=== PATIENT | male | born 1935 | race Caucasian/White ===

== ENCOUNTER 2018-01-07 10:13 | Inpatient (IN) | payer MEDICARE ==
[2018-01-07] MEDS ORDERED: ALBUTEROL SULFATE (0.083%) 2.5 MG/3 ML NEB INH PRN (16:49)
--- NOTE | 2018-01-07 17:10 | Rehab Evaluation ---
Patient Information - Patient Information Diagnosis: Deconditioning due to respiratory failure Ordered Treatment: PT Evaluate and Treat Status: Initial Evaluation History: Detail (The patient was transferred from [facility] Past Medical/Surgical Hx: PAST MEDICAL/SURGICAL HISTORY Past Surgical History Stents X2 RLL removed From [place] Apendix 2009 Untwist bowel EGD funduplication PMH - Respiratory Hx Respiratory Disorders Yes Hx Chronic Obstructive Yes Pulmonary Disease (COPD) Comment: RLlobe removed from [place] PMH - Cardiovascular Hx Cardiovascular Disorders Yes Hx Abnormal EKG Yes Hx Cardiac Catheterization Yes: recent cath [facility] 01/17/2015 Hx Edema Yes Hx Heart Attack Yes Hx Hypertension Yes Hx Irregular Heartbeat Yes Comment: [place] with 3 stents PMH - Neuro Hx Neurological Disorders Yes Hx Dizziness Yes PMH - GI Hx Gastrointestinal Disorders Yes Hx Gastroesophageal Reflux Yes Hx Obstructive Bowel Yes PMH - Hx Genitourinary Disorders No PMH - Endocrine Hx Endocrine Disorders No PMH - Musculoskeletal Hx Musculoskeletal Disorders Yes Hx Arthritis Yes PMH - Psych Hx Psychiatric Problems No PMH - Hematology/Oncology Hx Hematology/Oncology Yes Disorders Hx Cancer Yes: Lung Hx Chemotherapy No Hx Radiation Therapy No Premorbid Status: Detail (Prior to recent hospital admission per patient's family, patient was ambulatory without device in home and with 4 wheeled walker out in the community.) Social History: Detail (Patient lives with spouse in one story home with one step at the enterance into the kitchen with a grab bar on the right side when ascending stairs. The patient's bathroom is equipped with a [id number] with a small step/lip to step in and a shower seat and a high rise toilet. 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 The patient has a walker with 4 wheels and home O2.) Precautions: [place], Fall - Time With Patient Total Time Spent With Patient (Min): 30 Treatment Procedures: Detail (Initial Evaluation.) Subjective Information - Subjective Information Per Patient (The patient denied pain and had no complaints. The patient's breathing was labored at rest. The patient was [place] and required hand motions to follow directions at times. The patient stated he was not too good at lip reading.) Objective Data - Mental Status Patient Orientation: Oriented x3 - Visual Perception Appears within normal limits for therapeutic activities - ROM Within normal limits (LE AROM was WNL.) - Strength/Tone Not within normal limits (LE strength was generally 5/5 except for L hip flexors 4/5, B hamstrings 4+/5.) - Bed Mobility Needs Assist (Not assessed. The patient was sitting on the edge of the bed.) - Transfers Independent (Independent sit to and from stand transfer.) - Balance Balance Sitting: Good Balance Standing: Fair (The patient was able to stand without support. The patient's balance was not formally tested using an objective balance test.) - Gait Detail (The patient ambulated with 4 wheeled walker with supervision for safety and 6 L of O2 a distance of 22 feet x 1. The patient's O2 sat was not tested, the patient had minimal increase in shortness of breath.) Therapy Assessment - Therapy Assessment Detail (The patient has minimal LE weakness and decreased ability to complete prolonged physical activity. Feel the patient is a good Rehab candidate to return to previous functional level.) Problem List - Problem List Physical Therapy Problem List: Detail (1) Minimal weakness in bilateral LE's 2) Decreased ability to ambulate distances 3) Decreased ability to complete sustained physical activity as required for ADL's 4) Non ambulatory on stairs) Goals - Goals Physical Therapy Goals: 1) Assess patient's bed mobility. 2) Assess patient's balance using standardized balance test. 3) The patient will ambulate with appropriate assistive device distances of 150 feet plus mantaining appropriate O2 sat. level. 4)The patient will ambulate on stairs with supervision. 5) The patient will be independent with bed mobility. 6) The patient will tolerate 30 minutes of activity with one to 2 rest periods and maintaining safe O2 sat. level Prognosis - Prognosis Good (Good to return to home.) Plan - Plan Physical Therapy Plan: PT 1-2 times a day M-F for gait training, LE strengthening and muscular endurance exercises, bed mobility, breathing exercises including pursed lip breathing.
[2018-01-07] MEDS: CIPROFLOXACIN HCL 500 MG TABLET PO SCH (18:05)
[2018-01-07] MEDS: FERROUS SULFATE 325 MG TAB PO SCH (18:06)
[2018-01-07] MEDS: CALCIUM CARB/VITAMIN D 500MG/200IU PO SCH (18:06)
[2018-01-07] MEDS: GABAPENTIN 300 MG CAPSULE PO SCH (20:37)
[2018-01-07] MEDS: MIDODRINE 2.5 MG PO SCH (20:37)
[2018-01-07] MEDS: TAMSULOSIN HCL 0.4 MG CAP.ER.24H PO SCH (20:37)
[2018-01-07] MEDS: SOTALOL HCL 80 MG TABLET PO SCH (20:37)
[2018-01-07] MEDS: TOPIRAMATE 25MG TABLET PO SCH (20:37)
[2018-01-07] MEDS: CARBIDOPA/LEVODOPA 25MG/100MG TABLET PO SCH (20:37)
[2018-01-07] MEDS: PANTOPRAZOLE SODIUM 40 MG TABLET PO SCH (20:37)
[2018-01-08] MEDS: BREO (FLUTICASONE/VILANTEROL) 200MCG/25MCG INHALER INH SCH (05:45)
[2018-01-08] MEDS: UMECLIDINIUM BROMIDE (INCRUSE) 62.5MCG IH SCH (05:47)
[2018-01-08] MEDS: FLUTICASONE PROPIONATE 50MCG NASAL 16 GM BTL SCH (06:34)
[2018-01-08] MEDS: MIDODRINE 2.5 MG PO SCH ×3 (06:34→20:04)
[2018-01-08] MEDS: CIPROFLOXACIN HCL 500 MG TABLET PO SCH (06:35)
[2018-01-08] MEDS: SOTALOL HCL 80 MG TABLET PO SCH ×2 (06:35→20:13)
[2018-01-08] MEDS: ASPIRIN 81 MG TABEC PO SCH (06:35)
[2018-01-08] MEDS: ATORVASTATIN 20 MG TABLET PO SCH (06:35)
[2018-01-08] MEDS: CLOPIDOGREL 75MG TABLET PO SCH (06:36)
[2018-01-08] MEDS: TOPIRAMATE 25MG TABLET PO SCH ×3 (06:36→20:13)
[2018-01-08] MEDS: GABAPENTIN 300 MG CAPSULE PO SCH ×3 (06:36→20:12)
[2018-01-08] MEDS: CARBIDOPA/LEVODOPA 25MG/100MG TABLET PO SCH ×3 (06:36→20:13)
[2018-01-08] MEDS: LISINOPRIL 5 MG TABLET PO SCH (06:38)
[2018-01-08] MEDS: PANTOPRAZOLE SODIUM 40 MG TABLET PO SCH ×2 (06:38→20:13)
[2018-01-08] MEDS ORDERED: PREDNISONE 5 MG TAB PO SCH (08:00)
[2018-01-08] MEDS: CALCIUM CARB/VITAMIN D 500MG/200IU PO SCH ×2 (08:17→17:19)
[2018-01-08] MEDS: FERROUS SULFATE 325 MG TAB PO SCH ×3 (08:17→17:19)
[2018-01-08] MEDS: MULTIVITAMINS/MINERALS TABLET PO SCH (08:18)
--- NOTE | 2018-01-08 10:24 | Swing Bed Certification/Recert ---
Initial Certification Due: 01/07/18 14 Day Re-Cert Due: 01/21/18 44 Day Re-Cert Due: 02/20/18 74 Day Re-Cert Due: 03/22/18 CERTIFICATION 3 CERTIFICATION OF PATIENT ADMISSION Required at time of admission. Due: 01/07/18 I certify that SNF services are required to be given on an inpatient basis because of the above named patient's need for assisted care on a continuing basis for the condition(s) for which he/she was receiving inpatient hospital services prior to his/her transfer to the SNF. The patient's current needs for skilled care includes: [deconditioning due to COPD/lung cancer] Vivi Silva 01/08/18
--- NOTE | 2018-01-08 10:31 | History & Physical ---
History of Present Illness - Date Date of Service for History & Physical: 01/08/18 - History of Present Illness Admitting Diagnosis: Deconditioning d/t COPD and PNA History of Present Illness: 82yo male admitted to [facility] for deconditioning related to recent hospitalization at [facility] for acute on chronic respiratory failure from COPD and pneumonia. He has history of non-small cell lung cancer s/p right lower lobectomy, CAD s/p PCI, p. afib, SVT s/p ablation, GIB with watchman device placed in 2016, HTN, GERD, parkinson's disease, chronic anemia and hearing loss. Patient was admitted to [facility] on 01/01/18 with respiratory failure related to penumonia. he was treated for pseudomonas in sputum with meropenam and steroids. He did well and was transitioned to oral cipro and steroid taper with prednisone. He continued to be weak and was belong baseline with his breathing especially with activity. PT/OT at [facility] evaluated him and recommended continued therapy with JUAREZ. 01/08/18- Patient states he is doing well today. He says overall his breathing has improved and he does not feel short of breath at rest with 4L O2 via NC. He still gets winded easily with activity. He is not having any cough, sputum production, fever, chills. says he seems to be breathing much better since his hospitalization. He is having some loose stool since starting abx therapy, but denies abdominal pain/cramping. pcp: Dr. 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 Required: No Level of Education: Grade 9-11 Preferred Method of Learning: Seeing, Doing, Reading Comprehension Ability: No Impairment Able to Read: Yes Able to Write: Yes Select best description of speech pattern: Clear Speech Ability to express ideas and wants: Understood Understanding verbal content: Understands - Psychosocial Well-Being Usual Living Arrangement: Spouse - Physical Functioning Activity Level: Up with assist x1 Turning: Self ad marcell ROM Ability: Limited/Compromised Assistive Devices: 2 Wheel Walker Ambulation Ability: Needs Assist Bed Mobility: Independent Transfer Ability: Independent Bathing Ability: Needs Assist Personal Hygiene: Independent Dressing Ability: Independent Eating (Feeding) Ability: Independent Toileting Ability: Independent Administer Own Medication: Dependent - Continence Bowel Pattern: Diarrhea Bladder Pattern: Frequency, Urgency Urinary Incontinence: Functional - Dental Status Unable to examine: No Broken or loosely fitting full or partial dentures: Not Assessed/No Information No natural teeth or tooth fragment(s) (edentulous): No Abnormal mouth tissue (ulcers, masses, oral lesions, etc.): No Obvious or likely cavity or broken natural teeth: No Inflamed or bleeding gums or loose natural teeth: No Mouth/facial pain, discomfort or difficulty chewing: No - Nutrition Screening Poor oral intake > 1 week: No Unplanned weight loss in specified time frame: Yes Nutrition Support via tube feedings or parenteral nutrition: No Pressure Ulcer: No Significantly underweight define as BMI <18.5 kg/m2: No Albumin <2.5mg/dL: No Persistent nausea/vomiting/diarrhea >3 days: No Difficulty chewing/swallowing/mouth sores: No Admitting Diagnosis: Yes Nutrition Risk Score: High Risk Review of Systems Constitutional: Reports: Weakness. Denies: Chills, Fever Eyes: Denies: Vision change ENT: Reports: Hearing loss (chronic). Denies: Congestion Respiratory: Reports: Dyspnea (with exertion). Denies: Cough, Wheezes Cardiovascular: Reports: Arrhythmia (paroxysmal afib), Dyspnea on exertion. Denies: Chest pain, Edema, Palpitations Gastrointestinal: Reports: Diarrhea. Denies: Abdominal pain, Nausea, Vomiting Neurological: Reports: Weakness (generalized) Psychiatric: Denies: Anxiety, Depression Hematological/Lymphatic: Reports: Anemia (chronic) Past Medical History - SOCIAL HISTORY Smoking Status: Former smoker - SURGICAL HISTORY Past Surgical History: Stents X2. RLL removed From [place]. Apendix 2009. Untwist bowel. EGD. funduplication - RESPIRATORY Hx Respiratory Disorders: Yes Hx COPD: Yes Comment:: RLlobe removed from [place] - CARDIOVASCULAR Hx Cardio Disorders: Yes Hx Abnormal EKG: Yes - NEURO Hx Neuro Disorders: Yes Hx Dizziness: Yes - GI Hx GI Disorders: Yes Hx Reflux: Yes - Hx Genitourinary Disorders: No - ENDOCRINE Hx Endocrine Disorders: No - MUSCULOSKELETAL Hx Musculoskeletal Disorders: Yes Hx Arthritis: Yes - PSYCH Hx Psych Problems: No - HEMATOLOGY/ONCOLOGY Hx Hematology/Oncology Disorders: Yes Hx Cancer: Yes (Lung) Hx Chemotherapy: No Hx Radiation Therapy: No Family Medical History Any Significant Family History?: Yes Hx Cancer: Mother, Brother/Sister Hx Heart Disease: Father Hx HTN: Father H&P Meds/Allergies - Allergies Allergies: Allergies Allergy/AdvReac Type Severity Reaction Status Date / Time dipyridamole Allergy Intermediate ABDOMINAL Unverified 11/27/16 11:21 [From Persantine] PAIN - Active Medications Active Medications: Current Medications Hydrocodone Bitart/Acetaminophen ([place] 5mg/325mg) 1 each PO Q8H PRN PRN Reason: Pain - General Albuterol Sulfate () 2.5 mg INH Q6H PRN PRN Reason: WHEEZING Aspirin (Ecotrin (Ec)) 81 mg PO 0600 [facility] Last Admin: 01/08/18 06:35 Dose: 81 mg Atorvastatin Calcium (Lipitor) 5 mg PO 0600 [facility] Last Admin: 01/08/18 06:35 Dose: 5 mg Calcium/Vitamin D (Calcium 500+D Tablet) 1 tab PO BIDWM [facility] Last Admin: 01/08/18 08:17 Dose: 1 tab Carbidopa/Levodopa (Sinemet) 1 each PO 0600,1200,2000 [facility] Last Admin: 01/08/18 06:36 Dose: 1 each Ciprofloxacin (Cipro) 500 mg PO 0600,1800 [facility] Stop: 01/20/18 18:01 Last Admin: 01/08/18 06:35 Dose: 500 mg Clopidogrel Bisulfate (Plavix) 75 mg PO 0600 [facility] Last Admin: 01/08/18 06:36 Dose: 75 mg Ferrous Sulfate (Iron) 325 mg PO WMEALS [facility] Last Admin: 01/08/18 08:17 Dose: 325 mg Fluticasone Propionate (Flonase) 2 spray NA 0600 [facility] Last Admin: 01/08/18 06:34 Dose: 2 spray Gabapentin (Neurontin) 300 mg PO 0600,1200 [facility] Last Admin: 01/08/18 06:36 Dose: 300 mg Gabapentin (Neurontin) 600 mg PO 1999 [facility] Last Admin: 01/07/18 20:37 Dose: 600 mg Lisinopril (Zestril) 2.5 mg PO 0600 [facility] Last Admin: 01/08/18 06:38 Dose: 2.5 mg Multivitamins/Minerals (Centrum) 1 tab PO DAILYWM [facility] Last Admin: 01/08/18 08:18 Dose: 1 tab Pantoprazole Sodium (Protonix) 40 mg PO 0600,2000 [facility] Last Admin: 01/08/18 06:38 Dose: 40 mg Patient Own Med: (Midodrine 2.5 Mg) 1 each PO 0600,1199,1999 [facility] Last Admin: 01/08/18 06:34 Dose: 1 each Prednisone (Prednisone 10mg) 10 mg PO DAILYWM [facility] Stop: 01/11/18 08:01 Prednisone (Prednisone 5mg) 5 mg PO DAILYWM [facility] Stop: 01/14/18 08:01 Sotalol HCl (Betapace) 80 mg PO 599,1999 [facility] Last Admin: 01/08/18 06:35 Dose: 80 mg Tamsulosin HCl (Flomax) 0.4 mg PO 1999 [facility] Last Admin: 01/07/18 20:37 Dose: 0.4 mg Topiramate (Topiramate) 25 mg PO 00,1199,1999 [facility] Last Admin: 01/08/18 06:36 Dose: 25 mg Physical Exam - Vital Signs Vital Signs: Vital Signs - Last 24 Hrs Temp Pulse Resp BP BP BP Pulse Ox 01/08/18 09:40 98.8 F 128/75 01/08/18 07:30 98.8 F 65 20 128/75 97 01/07/18 20:00 28.5 F L 73 18 137/75 97 01/07/18 15:51 97.8 F 73 137/99 01/07/18 15:47 97.8 F 73 20 137/99 95 - General General Appearance: Alert, Oriented x3, Cooperative, No acute distress Limitations: Physical limitation (hearing loss of left ear) - Head Head exam: Normal inspection - Eye Eye exam: Normal appearance, PERRL - ENT ENT exam: Normal exam, Mucous membranes moist, Normal external ear exam, Normal orophraynx, TM's normal bilaterally - Neck Neck exam: Normal inspection, Full ROM. negative: Tenderness - Respiratory Respiratory exam: Decreased breath sounds (right lower lobe), Prolonged expiratory. negative: Accessory muscle use, Respiratory distress, Wheezes - Cardiovascular Cardiovascular Exam: Regular rate, Normal rhythm, Normal heart sounds - GI/Abdominal GI/Abdominal exam: Soft, Normal bowel sounds. negative: Tenderness - Extremities Extremities exam: Normal inspection, Full ROM, Normal capillary refill. negative: Tenderness - Neurological Neurological exam: Alert, Normal gait, Oriented X3, Reflexes normal - Psychiatric Psychiatric exam: Normal affect, Normal mood - Skin Skin exam: Dry, Intact, Normal color, Warm Discharge Potential - Discharge Needs Community Services Used Prior to Admission: Occupational Therapy, Oxygen Therapy , Physical Therapy Patient Discharge Plan Description: Return Home Community Services Needed at Discharge: Occupational Therapy, Oxygen Therapy, Physical Therapy Plan - Swing Bed Certification Initial Certification Due: 01/07/18 14 Day Re-Cert Due: 01/21/18 44 Day Re-Cert Due: 02/20/18 74 Day Re-Cert Due: 03/22/18 - Detailed Diagnosis and Plan (1) Physical deconditioning Current Visit: Yes Status: Acute Base Code: R53.81 - OTHER MALAISE Comment : 01/08/18- patient is deconditioned following hospitalization for COPD exacerbation/pneumonia. -will work with PT/OT M-F to work on strength and physical functioning (2) COPD exacerbation Current Visit: Yes Status: Acute Base Code: J44.1 - CHRONIC OBSTRUCTIVE PULMONARY DISEASE W (ACUTE) EXACERBATION Comment: 01/08/18- continues to improve. continues to sat >95% on 4L via NC. Only feels SOB with exertion. -continue cipro 500mg po bid for 14 more days -continue steroid taper -EKG x5 days to monitor for QT prolongation. In normal range today. -vitals q12H -O2 via NC to keep sats >92% (3) Full code status Current Visit: Yes Status: Acute Base Code: Z78.9 - OTHER SPECIFIED HEALTH STATUS Comment: 01/08/18- Full code status
--- NOTE | 2018-01-08 11:09 | Physical Therapy Tx Note ---
Physical Therapy Tx Note - Treatment Note Tolerated: Good Total Time Spent With Patient: 35 Physical Therapy Tx Note: Detail (Pt up in bathroom independently upon arrival. Therapist returned about 15 minutes later; pt up in chair with in room. Alert, cooperative for therapy; denied pain. Measured 02 sat at rest, during seated exercises, and ambulation. Performed 10 reps each of seated hip flexion , knee extension, isometric knee flexion, hip adduction w/pillow, ankle pumps, arm raises, shoulder abduction B; 02 sat remained at 92-94% on 4L via nasal cannula. Pt stood from chair independently to walker, for about one minute, reported feeling a little lightheaded, 02 sat dropped to 89%. Sat independently and rested for a couple of minutes until 02 sat resumed 94%. Stood independently at four wheeled walker and ambulated about 80 feet with intermittent standing rest breaks, w/assist for 02 tank and CGA/SBA; 02 sat remained 94%, although the patient would become short of breath and effectively implemented pursed lip breathing. Independently transferred to recliner, transferred nasal cannula to wall 02 and provided water. Scored functional balance and gait on Tinetti Assessment Tool: Balance score 15/16, Gait score 9/ 12, total score 24/28. Left up in chair w/ and spring encaser present, pointed out afternoon appt time to him.) Physical Therapy Problem List: Detail (1) Minimal weakness in bilateral LE's 2) Decreased ability to ambulate distances 3) Decreased ability to complete sustained physical activity as required for ADL's 4) Non ambulatory on stairs) Physical Therapy Goals: 1) Assess patient's bed mobility. 2) Assess patient's balance using standardized balance test - met; Tinetti total score 24/28 = low risk of falls, with assistive device. 3) The patient will ambulate with appropriate assistive device distances of 150 feet plus mantaining appropriate O2 sat. level. 4)The patient will ambulate on stairs with supervision. 5) The patient will be independent with bed mobility. 6) The patient will tolerate 30 minutes of activity with one to 2 rest periods and maintaining safe O2 sat. level Prognosis: Good Physical Therapy Plan: PT 1-2 times a day M-F for gait training, LE strengthening and muscular endurance exercises, bed mobility, breathing exercises including pursed lip breathing.
--- NOTE | 2018-01-08 14:32 | Physical Therapy Tx Note ---
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 Patient states no new complaints. Patient transferred sit to and from stand SBA x1. Patient ambulated 92 feet with four wheeled walker SBA x1. Patient performed the following standing exercises x10-15 reps each: marching, heel raises, toe raises, hip abduction, and hip extension. Patient tolerated treatment well. Patient required 3 standing rest breaks with ambulation due to shortness of breath. Patient required seated rest breaks after every set of exercise due to shortness of breath and fatigue. Patient reports declined continued exercises due to tired. Patient was left seated in chair with call light within reach.) Physical Therapy Problem List: Detail (1) Minimal weakness in bilateral LE's 2) Decreased ability to ambulate distances 3) Decreased ability to complete sustained physical activity as required for ADL's 4) Non ambulatory on stairs) Physical Therapy Goals: 1) Assess patient's bed mobility. 2) Assess patient's balance using standardized balance test - met; Tinetti total score 24/28 = low risk of falls, with assistive device. 3) The patient will ambulate with appropriate assistive device distances of 150 feet plus mantaining appropriate O2 sat. level. 4)The patient will ambulate on stairs with supervision. 5) The patient will be independent with bed mobility. 6) The patient will tolerate 30 minutes of activity with one to 2 rest periods and maintaining safe O2 sat. level Prognosis: Good Physical Therapy Plan: PT 1-2 times a day M-F for gait training, LE strengthening and muscular endurance exercises, bed mobility, breathing exercises including pursed lip breathing.
[2018-01-08] MEDS: CIPROFLOXACIN 500 MG PO SCH (17:19)
--- NOTE | 2018-01-08 18:01 | Swallow Evaluation ---
Swallow Evaluation - General Patient Information Date of Assessment: 01/08/18 Referral Date: 01/08/18 Date of Onset: Unknown Admitting Diagnosis: Deconditioning Medical History: COPD and Pneumonia Current Feeding Status: All oral Cognitive Status: WFL Oral Motor Assessment - Lips Lips at Rest: Normal Function Lip Retraction: Normal Function Lip Protrusion: Normal Function - Tongue Tongue at Rest: Normal Function Tongue Protrusion: Normal Function Tongue Elevation: Normal Function Tongue Lateralization: Normal Function - Velum Velum at Rest: Normal Function Velum Elevation: Normal Function - Additional Information Volitional Cough/Throat Clearing: Weak due to respiratory status. Swallow Assessment - Oral Preparatory Phase Phase - Liquid: Normal Function Phase - Puree: Normal Function - Oral Phase Phase - Liquid: Normal Function Phase - Puree: Normal Function Phase - Solid: Normal Function - Pharyngeal Phase Phase - Liquid: Normal Function Phase - Puree: Normal Function Phase - Solid: Abnormal Function - Additional Information Swallow Assessment Comment: Pt self reports hx significant for esophageal phase dysphagia and hx of dialation of esophagus. Hx of difficulty with tough meats and breads due to this condition. Plan for Treatment - Diagnosis/Clinical Impression Diagnosis: Esophageal phase dysphagia. Clinical Impression: Patient presents with mild overt s/s of dysphagia secondary to his respiratory and esophogeal conditions. The patient self monitors his intake and avoids foods he knows triggers these conditions such as hard meats/breads. At this time symptoms appear to be esophogeal in nature which this patient is being followed by a GI specialist and is adhering to a GERD diet per self-report. No ST tx is warranted at this time although if symptoms worsen or change the patient may need a follow up by his GI specialist. - Consistency Modification Consistency Modification: Soft Liquid Modification: Regular Medication Modification: Regular - Behavior Modification Behavior Modification: Position upright for all oral intake - Additional Plan Details Videofluroscopic Swallow Study Ordered: No Diagnosis/Recommendation Discussed With: Patient, Family, Caregiver Goals for Treatment - Additional Goal Detail Additional Goal Detail: No goals established due to evaluation only. No overt s /s of oropharyngeal dysphagia. Hx of esophageal dysphagia noted.
[2018-01-08] MEDS: TAMSULOSIN HCL 0.4 MG CAP.ER.24H PO SCH (20:13)
[2018-01-09] MEDS: UMECLIDINIUM BROMIDE (INCRUSE) 62.5MCG IH SCH (06:08)
[2018-01-09] MEDS: BREO (FLUTICASONE/VILANTEROL) 200MCG/25MCG INHALER INH SCH (06:08)
[2018-01-09] MEDS: MIDODRINE 2.5 MG PO SCH ×3 (06:20→20:48)
[2018-01-09] MEDS: SOTALOL HCL 80 MG TABLET PO SCH ×2 (06:20→20:43)
[2018-01-09] MEDS: FLUTICASONE PROPIONATE 50MCG NASAL 16 GM BTL SCH (06:20)
[2018-01-09] MEDS: ASPIRIN 81 MG TABEC PO SCH (06:20)
[2018-01-09] MEDS: CIPROFLOXACIN 500 MG PO SCH ×2 (06:20→17:48)
[2018-01-09] MEDS: ATORVASTATIN 20 MG TABLET PO SCH (06:21)
[2018-01-09] MEDS: GABAPENTIN 300 MG CAPSULE PO SCH ×3 (06:22→20:43)
[2018-01-09] MEDS: TOPIRAMATE 25MG TABLET PO SCH ×3 (06:22→20:43)
[2018-01-09] MEDS: PANTOPRAZOLE SODIUM 40 MG TABLET PO SCH ×2 (06:22→20:43)
[2018-01-09] MEDS: LISINOPRIL 5 MG TABLET PO SCH (06:22)
[2018-01-09] MEDS: CLOPIDOGREL 75MG TABLET PO SCH (06:22)
[2018-01-09] MEDS: CARBIDOPA/LEVODOPA 25MG/100MG TABLET PO SCH ×3 (06:22→20:42)
[2018-01-09] MEDS: MULTIVITAMINS/MINERALS TABLET PO SCH (08:18)
[2018-01-09] MEDS: FERROUS SULFATE 325 MG TAB PO SCH ×3 (08:19→17:48)
[2018-01-09] MEDS: PREDNISONE 10 MG TAB PO SCH (08:19)
[2018-01-09] MEDS: CALCIUM CARB/VITAMIN D 500MG/200IU PO SCH ×2 (08:19→17:48)
--- NOTE | 2018-01-09 09:27 | Rehab Evaluation ---
Patient Information - Patient Information Diagnosis: Deconditioning due to COPD and PNA Ordered Treatment: OT Evaluate and Treat Status: Initial Evaluation History: Detail (The patient was transferred from [facility].) Past Medical/Surgical Hx: PAST MEDICAL/SURGICAL HISTORY Past Surgical History Stents X2 RLL removed From MD Apendix 2009 Untwist bowel EGD funduplication PMH - Respiratory Hx Respiratory Disorders Yes Hx Chronic Obstructive Yes Pulmonary Disease (COPD) Comment: RLlobe removed from MD PMH - Cardiovascular Hx Cardiovascular Disorders Yes Hx Abnormal EKG Yes Hx Cardiac Catheterization Yes: recent cath [facility] 01/17/2015 Hx Edema Yes Hx Heart Attack Yes Hx Hypertension Yes Hx Irregular Heartbeat Yes Comment: NM with 3 stents PMH - Neuro Hx Neurological Disorders Yes Hx Dizziness Yes PMH - GI Hx Gastrointestinal Disorders Yes Hx Gastroesophageal Reflux Yes Hx Obstructive Bowel Yes PMH - Hx Genitourinary Disorders No PMH - Endocrine Hx Endocrine Disorders No PMH - Musculoskeletal Hx Musculoskeletal Disorders Yes Hx Arthritis Yes PMH - Psych Hx Psychiatric Problems No PMH - Hematology/Oncology Hx Hematology/Oncology Yes Disorders Hx Cancer Yes: Lung Hx Chemotherapy No Hx Radiation Therapy No Premorbid Status: Detail (Prior to recent hospital admission per patient's family, patient was ambulatory without device in home and with 4 wheeled walker out in the community.) Social History: Detail (Patient lives with spouse in one story home with one step at the entrance into the kitchen with a grab bar on the right side when ascending stairs. The patient's bathroom is equipped with a [id number] with a small step/lip to step in and a shower seat and a high rise toilet. The patient typically stands to shower. The patient was independent with all ADL's and was responsible for all home mgmt, meal prep and laundry tasks. The patient has a 2 wheeled walker, a 4 wheeled walker and home O2.) Precautions: Bradley, Fall, Other (TRIBE) - Time With Patient Total Time Spent With Patient (Min): 30 Treatment Procedures: Detail (OT eval low complexity) Subjective Information - Subjective Information Per Patient, Other (Per ) Objective Data - Pain Pain Present: No - Mental Status Patient Orientation: Oriented x3 - Visual Perception Appears within normal limits for therapeutic activities (Pt wears glasses at all times.) - ROM Within normal limits (Ebenezer UE AROM WNL) - Strength/Tone Within normal limits (Ebenezer UE MMT 4+/5) - Coordination Appears within normal limits for therapeutic activities - Transfers Independent (Ind with sit to stand from chair) - Balance Balance Sitting: Good Balance Standing: Good - Sensation Intact - Gait Detail (Pt ambulated in room and bathroom without an assistive device with SBA.) - ADL's/IADL's Detail (Pt was able to complete oral hygeine, shaving, combing hair at sink Indly. His reports he was Ind with dressing this am. Pt became very short of breath with activity using 4 liters of oxygen.) Therapy Assessment - Therapy Assessment Detail (Pt presents with significant shortness of breath with any activity. Need to assess showering Ind and safety.) Problem List - Problem List Physical Therapy Problem List: Detail (1) Minimal weakness in bilateral LE's 2) Decreased ability to ambulate distances 3) Decreased ability to complete sustained physical activity as required for ADL's 4) Non ambulatory on stairs) Occupational Therapy Problem List: Detail (1. Decreased Ind with showering. 2. Decreased endurance needed for safe and Ind ADLs and functional mobility.) Goals - Goals Physical Therapy Goals: 1) Assess patient's bed mobility. 2) Assess patient's balance using standardized balance test - met; Tinetti total score 24/28 = low risk of falls, with assistive device. 3) The patient will ambulate with appropriate assistive device distances of 150 feet plus mantaining appropriate O2 sat. level. 4)The patient will ambulate on stairs with supervision. 5) The patient will be independent with bed mobility. 6) The patient will tolerate 30 minutes of activity with one to 2 rest periods and maintaining safe O2 sat. level Occupational Therapy Goals: 1. Pt will be safe and Ind with showering in sitting and standing. 2. Pt will demonstrate improved endurance needed for safe and Ind self cares and functional mobility. Prognosis - Prognosis Good Plan - Plan Physical Therapy Plan: PT 1-2 times a day M-F for gait training, LE strengthening and muscular endurance exercises, bed mobility, breathing exercises including pursed lip breathing. Occupational Therapy Plan: OT 2-4 days per week to address showering, functional mobility and overall endurance needed for safe and Ind return home with .
--- NOTE | 2018-01-09 13:43 | Physical Therapy Tx Note ---
Physical Therapy Tx Note - Treatment Note Tolerated: Good Total Time Spent With Patient: 30 Physical Therapy Tx Note: Detail (The patient was sitting in his recliner upon arrival. The patient was independent with sit to stand. He was able to ambulate from his room to the nurse's station with two rest breaks throughout (6L of O2, maintained 88% O2 Saturation). He was able to ambulate back to his room with one rest break while maintaing 89% O2 saturation with 6L. The patient then completed 10 reps of the following exercises: Standing mini-squats, LAQ, Heel/ Toe Raises, Shoulder flexion, Shoulder Abduction, and elbow flexion/extension. He was instructed to complete these exercises as part of his HEP 2 times per day. He was left sitting in his recliner, with call light in reach, and family members present.) Physical Therapy Problem List: Detail (1) Minimal weakness in bilateral LE's 2) Decreased ability to ambulate distances 3) Decreased ability to complete sustained physical activity as required for ADL's 4) Non ambulatory on stairs) Physical Therapy Goals: 1) Assess patient's bed mobility. 2) Assess patient's balance using standardized balance test - met; Tinetti total score 24/28 = low risk of falls, with assistive device. 3) The patient will ambulate with appropriate assistive device distances of 150 feet plus mantaining appropriate O2 sat. level. 4)The patient will ambulate on stairs with supervision. 5) The patient will be independent with bed mobility. 6) The patient will tolerate 30 minutes of activity with one to 2 rest periods and maintaining safe O2 sat. level Prognosis: Good Physical Therapy Plan: PT 1-2 times a day M-F for gait training, LE strengthening and muscular endurance exercises, bed mobility, breathing exercises including pursed lip breathing.
[2018-01-09] MEDS ORDERED: ACETAMINOPHEN 500 MG TABLET PO PRN (17:27)
[2018-01-09] MEDS: TAMSULOSIN HCL 0.4 MG CAP.ER.24H PO SCH (20:42)
[2018-01-09] MEDS: HYDROCODONE/APAP 5/325MG TABLET PO PRN (20:47)
[2018-01-10] MEDS: ATORVASTATIN 20 MG TABLET PO SCH (05:58)
[2018-01-10] MEDS: PANTOPRAZOLE SODIUM 40 MG TABLET PO SCH ×2 (05:58→19:54)
[2018-01-10] MEDS: SOTALOL HCL 80 MG TABLET PO SCH ×2 (05:58→19:52)
[2018-01-10] MEDS: CARBIDOPA/LEVODOPA 25MG/100MG TABLET PO SCH ×3 (05:59→19:53)
[2018-01-10] MEDS: GABAPENTIN 300 MG CAPSULE PO SCH ×3 (05:59→19:52)
[2018-01-10] MEDS: LISINOPRIL 5 MG TABLET PO SCH (06:00)
[2018-01-10] MEDS: CLOPIDOGREL 75MG TABLET PO SCH (06:00)
[2018-01-10] MEDS: TOPIRAMATE 25MG TABLET PO SCH ×3 (06:00→19:53)
[2018-01-10] MEDS: ASPIRIN 81 MG TABEC PO SCH (06:00)
[2018-01-10] MEDS: FLUTICASONE PROPIONATE 50MCG NASAL 16 GM BTL SCH (06:01)
[2018-01-10] MEDS: MIDODRINE 2.5 MG PO SCH ×3 (06:02→19:54)
[2018-01-10] MEDS: CIPROFLOXACIN 500 MG PO SCH ×2 (06:02→17:20)
[2018-01-10] MEDS: BREO (FLUTICASONE/VILANTEROL) 200MCG/25MCG INHALER INH SCH (06:33)
[2018-01-10] MEDS: UMECLIDINIUM BROMIDE (INCRUSE) 62.5MCG IH SCH (06:33)
[2018-01-10] MEDS: PREDNISONE 10 MG TAB PO SCH (07:53)
[2018-01-10] MEDS: CALCIUM CARB/VITAMIN D 500MG/200IU PO SCH ×2 (07:53→17:20)
[2018-01-10] MEDS: MULTIVITAMINS/MINERALS TABLET PO SCH (07:53)
[2018-01-10] MEDS: FERROUS SULFATE 325 MG TAB PO SCH ×3 (07:54→17:20)
[2018-01-10] MEDS: HYDROCODONE/APAP 5/325MG TABLET PO PRN (19:51)
[2018-01-10] MEDS: TAMSULOSIN HCL 0.4 MG CAP.ER.24H PO SCH (19:53)
[2018-01-11] MEDS: CARBIDOPA/LEVODOPA 25MG/100MG TABLET PO SCH ×3 (05:53→20:08)
[2018-01-11] MEDS: PANTOPRAZOLE SODIUM 40 MG TABLET PO SCH ×2 (05:53→20:08)
[2018-01-11] MEDS: ATORVASTATIN 20 MG TABLET PO SCH (05:54)
[2018-01-11] MEDS: LISINOPRIL 5 MG TABLET PO SCH (05:55)
[2018-01-11] MEDS: SOTALOL HCL 80 MG TABLET PO SCH ×2 (05:55→20:07)
[2018-01-11] MEDS: TOPIRAMATE 25MG TABLET PO SCH ×3 (05:56→20:08)
[2018-01-11] MEDS: CLOPIDOGREL 75MG TABLET PO SCH (05:57)
[2018-01-11] MEDS: GABAPENTIN 300 MG CAPSULE PO SCH ×3 (05:57→20:07)
[2018-01-11] MEDS: ASPIRIN 81 MG TABEC PO SCH (05:57)
[2018-01-11] MEDS: CIPROFLOXACIN 500 MG PO SCH ×2 (05:58→18:02)
[2018-01-11] MEDS: MIDODRINE 2.5 MG PO SCH ×3 (05:58→20:08)
[2018-01-11] MEDS: FLUTICASONE PROPIONATE 50MCG NASAL 16 GM BTL SCH (05:58)
[2018-01-11] MEDS: UMECLIDINIUM BROMIDE (INCRUSE) 62.5MCG IH SCH (06:00)
[2018-01-11] MEDS: BREO (FLUTICASONE/VILANTEROL) 200MCG/25MCG INHALER INH SCH (06:00)
[2018-01-11] MEDS: CALCIUM CARB/VITAMIN D 500MG/200IU PO SCH ×2 (08:06→18:02)
[2018-01-11] MEDS: MULTIVITAMINS/MINERALS TABLET PO SCH (08:06)
[2018-01-11] MEDS: PREDNISONE 10 MG TAB PO SCH (08:07)
[2018-01-11] MEDS: FERROUS SULFATE 325 MG TAB PO SCH ×3 (08:07→18:02)
[2018-01-11] MEDS: TAMSULOSIN HCL 0.4 MG CAP.ER.24H PO SCH (20:07)
[2018-01-12] MEDS: UMECLIDINIUM BROMIDE (INCRUSE) 62.5MCG IH SCH (05:46)
[2018-01-12] MEDS: BREO (FLUTICASONE/VILANTEROL) 200MCG/25MCG INHALER INH SCH (05:47)
[2018-01-12] MEDS: FLUTICASONE PROPIONATE 50MCG NASAL 16 GM BTL SCH (06:11)
[2018-01-12] MEDS: SOTALOL HCL 80 MG TABLET PO SCH ×2 (06:11→19:46)
[2018-01-12] MEDS: ASPIRIN 81 MG TABEC PO SCH (06:11)
[2018-01-12] MEDS: CIPROFLOXACIN 500 MG PO SCH ×2 (06:12→17:20)
[2018-01-12] MEDS: ATORVASTATIN 20 MG TABLET PO SCH (06:12)
[2018-01-12] MEDS: PANTOPRAZOLE SODIUM 40 MG TABLET PO SCH ×2 (06:12→19:46)
[2018-01-12] MEDS: GABAPENTIN 300 MG CAPSULE PO SCH ×3 (06:12→19:47)
[2018-01-12] MEDS: MIDODRINE 2.5 MG PO SCH ×3 (06:13→19:50)
[2018-01-12] MEDS: LISINOPRIL 5 MG TABLET PO SCH (06:13)
[2018-01-12] MEDS: CARBIDOPA/LEVODOPA 25MG/100MG TABLET PO SCH ×3 (06:13→19:46)
[2018-01-12] MEDS: CLOPIDOGREL 75MG TABLET PO SCH (06:13)
[2018-01-12] MEDS: TOPIRAMATE 25MG TABLET PO SCH ×3 (06:14→19:50)
[2018-01-12] MEDS: FERROUS SULFATE 325 MG TAB PO SCH ×3 (07:41→17:19)
[2018-01-12] MEDS: CALCIUM CARB/VITAMIN D 500MG/200IU PO SCH ×2 (07:41→17:19)
[2018-01-12] MEDS: MULTIVITAMINS/MINERALS TABLET PO SCH (07:41)
[2018-01-12] MEDS: PREDNISONE 5 MG TAB PO SCH (07:41)
--- NOTE | 2018-01-12 09:41 | Occupational Therapy Tx Note ---
Occupational Therapy Tx Note - Treatment Note Tolerated: Fair Total Time Spent With Patient: 35 (ADL) Occupational Therapy Treatment Note: Detail (S: Pt up in chair, on 4 liters of oxygen. O: Sit to stand and amb to bathroom with SBA. Pt doffed shirt, pants , slippers Indly in sitting and standing. Pt completed showering in sitting with 4-6 liters of oxygen, Indly. He was very short of breath and required cues to rest and complete pursed lip breathing. Pt dried self Indly and donned shirt , underwear, pants, socks and slippers Indly. Pt amb to sink and combed hair in standing Indly. Pt completed toileting in standing Indly. Pt amb back to chair with SBA. A: Pt very fatigued and short of breath during activity. He was Ind with showering and dressing but required cues for resting and using modified breathing techniques.) Occupational Therapy Problem List: Detail (1. Decreased Ind with showering. 2. Decreased endurance needed for safe and Ind ADLs and functional mobility.) Occupational Therapy Goals: 1. Pt will be safe and Ind with showering in sitting and standing. 2. Pt will demonstrate improved endurance needed for safe and Ind self cares and functional mobility. Prognosis: Good Occupational Therapy Plan: OT 2-4 days per week to address showering, functional mobility and overall endurance needed for safe and Ind return home with .
--- NOTE | 2018-01-12 14:40 | Physical Therapy Tx Note ---
Physical Therapy Tx Note - Treatment Note Tolerated: Good Total Time Spent With Patient: 30 Physical Therapy Tx Note: Detail (The patient ambulated with 4 wheeled walker with 6 L of O2 a distance of 67 feet x2 with rest period. O2 sat dropped to 83, returned in one minute to 90's. The patient completed LE and UE exercises with 6 L including , marches, kicks, ankle pumps, resisted hip abduction, adduction, shoulder flexion, abduction, elbow flexion x 10 reps and chair pushups x 5 reps. patient's O2 sats remainined in the 90's. Patient left with family, call light in place.) Physical Therapy Problem List: Detail (1) Minimal weakness in bilateral LE's 2) Decreased ability to ambulate distances 3) Decreased ability to complete sustained physical activity as required for ADL's 4) Non ambulatory on stairs) Physical Therapy Goals: 1) Assess patient's bed mobility. 2) Assess patient's balance using standardized balance test - met; Tinetti total score 24/28 = low risk of falls, with assistive device. 3) The patient will ambulate with appropriate assistive device distances of 150 feet plus mantaining appropriate O2 sat. level. 4)The patient will ambulate on stairs with supervision. 5) The patient will be independent with bed mobility. 6) The patient will tolerate 30 minutes of activity with one to 2 rest periods and maintaining safe O2 sat. level Physical Therapy Plan: PT 1-2 times a day M-F for gait training, LE strengthening and muscular endurance exercises, bed mobility, breathing exercises including pursed lip breathing.
[2018-01-12] MEDS: TAMSULOSIN HCL 0.4 MG CAP.ER.24H PO SCH (19:46)
[2018-01-13] MEDS: CLOPIDOGREL 75MG TABLET PO SCH (06:43)
[2018-01-13] MEDS: CARBIDOPA/LEVODOPA 25MG/100MG TABLET PO SCH ×3 (06:43→19:51)
[2018-01-13] MEDS: ASPIRIN 81 MG TABEC PO SCH (06:43)
[2018-01-13] MEDS: ATORVASTATIN 20 MG TABLET PO SCH (06:43)
[2018-01-13] MEDS: PANTOPRAZOLE SODIUM 40 MG TABLET PO SCH ×2 (06:43→19:51)
[2018-01-13] MEDS: LISINOPRIL 5 MG TABLET PO SCH (06:43)
[2018-01-13] MEDS: TOPIRAMATE 25MG TABLET PO SCH ×3 (06:44→19:51)
[2018-01-13] MEDS: FLUTICASONE PROPIONATE 50MCG NASAL 16 GM BTL SCH (06:44)
[2018-01-13] MEDS: SOTALOL HCL 80 MG TABLET PO SCH ×2 (06:44→19:51)
[2018-01-13] MEDS: MIDODRINE 2.5 MG PO SCH ×3 (06:45→19:51)
[2018-01-13] MEDS: GABAPENTIN 300 MG CAPSULE PO SCH ×3 (06:45→19:51)
[2018-01-13] MEDS: CIPROFLOXACIN 500 MG PO SCH ×2 (06:45→17:53)
[2018-01-13] MEDS: BREO (FLUTICASONE/VILANTEROL) 200MCG/25MCG INHALER INH SCH (07:05)
[2018-01-13] MEDS: UMECLIDINIUM BROMIDE (INCRUSE) 62.5MCG IH SCH (07:06)
[2018-01-13] MEDS: MULTIVITAMINS/MINERALS TABLET PO SCH (07:58)
[2018-01-13] MEDS: PREDNISONE 5 MG TAB PO SCH (07:59)
[2018-01-13] MEDS: CALCIUM CARB/VITAMIN D 500MG/200IU PO SCH ×2 (07:59→17:52)
[2018-01-13] MEDS: FERROUS SULFATE 325 MG TAB PO SCH ×3 (07:59→17:52)
--- NOTE | 2018-01-13 10:43 | Physical Therapy Tx Note ---
Physical Therapy Tx Note - Treatment Note Tolerated: Good Total Time Spent With Patient: 25 Physical Therapy Tx Note: Detail (The patient was up in chair when PT arrived. The patien ambulated with 4 wheeled walker and 6 L of O2 67 feet x 2 with O2 sat generally remaining in the 90's with 88 on one occasion. The patient ambulated on 3 steps with supervison for safety only and use of one railing with 6L of O2 and step to method. O2 sat level remained in the 90's. The patient completed LE exercises in standing hip abduction, squats x 5 reps and shoulder abduction x 15 reps. Patient was fatigued after exercises, limiting 30 minute session to 25 minutes. Patient used appropriate pursed lip breathing techniques without verbal cues.) Physical Therapy Problem List: Detail (1) Minimal weakness in bilateral LE's 2) Decreased ability to ambulate distances 3) Decreased ability to complete sustained physical activity as required for ADL's 4) Non ambulatory on stairs) Physical Therapy Goals: 1) Assess patient's bed mobility. 2) Assess patient's balance using standardized balance test - met; Tinetti total score 24/28 = low risk of falls, with assistive device. 3) The patient will ambulate with appropriate assistive device distances of 150 feet plus mantaining appropriate O2 sat. level. 4)The patient will ambulate on stairs with supervision. 5) The patient will be independent with bed mobility. 6) The patient will tolerate 30 minutes of activity with one to 2 rest periods and maintaining safe O2 sat. level Physical Therapy Plan: PT 1-2 times a day M-F for gait training, LE strengthening and muscular endurance exercises, bed mobility, breathing exercises including pursed lip breathing.
--- NOTE | 2018-01-13 14:31 | Physical Therapy Tx Note ---
Physical Therapy Tx Note - Treatment Note Tolerated: Good Total Time Spent With Patient: 30 Physical Therapy Tx Note: Detail (Pt was resting in chair upon arrival. Pt states feeling pretty good this afternoon. Pt completed seated ex's of hip abduction with red theraband, Hs curls with red theraband, hip adduction with pillow, seated marching all x 15 bilaterally. Pt completed standing heel raises , toe raises, marching x 10 each bilaterally. Pt ambulated with wheeled walker x110 ft. with contact gaurd assist and required 1 rest period x 2 min to increase O2 stats. All activities with O2 on patient and Pulsox attatched and monitored for levels. Pt had decreased O2 to 86 during and after marching and during gait. Pt reminded of pursed lip breathing and deep breathing to increase O2 levels as needed. Pt returned to room and chair. Pt was given call light and had many family in room with him. Pt O2 stats returned to 96 prior to leaving Pt.) Physical Therapy Problem List: Detail (1) Minimal weakness in bilateral LE's 2) Decreased ability to ambulate distances 3) Decreased ability to complete sustained physical activity as required for ADL's 4) Non ambulatory on stairs) Physical Therapy Goals: 1) Assess patient's bed mobility. 2) Assess patient's balance using standardized balance test - met; Tinetti total score 24/28 = low risk of falls, with assistive device. 3) The patient will ambulate with appropriate assistive device distances of 150 feet plus mantaining appropriate O2 sat. level. 4)The patient will ambulate on stairs with supervision. 5) The patient will be independent with bed mobility. 6) The patient will tolerate 30 minutes of activity with one to 2 rest periods and maintaining safe O2 sat. level Prognosis: Good Physical Therapy Plan: PT 1-2 times a day M-F for gait training, LE strengthening and muscular endurance exercises, bed mobility, breathing exercises including pursed lip breathing.
[2018-01-13] MEDS: TAMSULOSIN HCL 0.4 MG CAP.ER.24H PO SCH (19:51)
[2018-01-14] MEDS: GABAPENTIN 300 MG CAPSULE PO SCH ×3 (05:53→19:53)
[2018-01-14] MEDS: ASPIRIN 81 MG TABEC PO SCH (05:53)
[2018-01-14] MEDS: SOTALOL HCL 80 MG TABLET PO SCH ×2 (05:53→19:53)
[2018-01-14] MEDS: CLOPIDOGREL 75MG TABLET PO SCH (05:53)
[2018-01-14] MEDS: FLUTICASONE PROPIONATE 50MCG NASAL 16 GM BTL SCH (05:53)
[2018-01-14] MEDS: CIPROFLOXACIN 500 MG PO SCH ×2 (05:54→18:47)
[2018-01-14] MEDS: MIDODRINE 2.5 MG PO SCH ×3 (05:54→19:54)
[2018-01-14] MEDS: PANTOPRAZOLE SODIUM 40 MG TABLET PO SCH ×2 (05:54→19:53)
[2018-01-14] MEDS: TOPIRAMATE 25MG TABLET PO SCH ×3 (05:55→19:53)
[2018-01-14] MEDS: CARBIDOPA/LEVODOPA 25MG/100MG TABLET PO SCH ×3 (05:55→19:53)
[2018-01-14] MEDS: LISINOPRIL 5 MG TABLET PO SCH (05:56)
[2018-01-14] MEDS: ATORVASTATIN 20 MG TABLET PO SCH (05:56)
[2018-01-14] MEDS: BREO (FLUTICASONE/VILANTEROL) 200MCG/25MCG INHALER INH SCH (06:00)
[2018-01-14] MEDS: UMECLIDINIUM BROMIDE (INCRUSE) 62.5MCG IH SCH (06:01)
[2018-01-14] MEDS: CALCIUM CARB/VITAMIN D 500MG/200IU PO SCH ×2 (07:52→18:46)
[2018-01-14] MEDS: MULTIVITAMINS/MINERALS TABLET PO SCH (07:52)
[2018-01-14] MEDS: FERROUS SULFATE 325 MG TAB PO SCH ×3 (07:52→18:46)
[2018-01-14] MEDS: PREDNISONE 5 MG TAB PO SCH (07:52)
--- NOTE | 2018-01-14 12:54 | Physical Therapy Tx Note ---
Physical Therapy Tx Note - Treatment Note Tolerated: Good Total Time Spent With Patient: 30 Physical Therapy Tx Note: Detail (Patient was seated in chair upon [employer] SAL[employer] arrival. Patient states no new complaints. Patient transferred sit to and from stand SBA x1. Patient ambulated 72 feet x2 with four wheeled walker SBA x1. Patient required one seated rest break with ambulation due to shortness of breath. Patient transferred sit to and from stand SBA x1. Patient performed the following exercises x10-20 each: standing marching, standing hip abduction, standing heel raises, standing toe raises, standing glut squeezes, LAQ, hamstring curls with red theraband, seated hip abduction with red theraband, and seated isometric hip adduction. Patient tolerated treatment well. Patient required seated rest breaks with standing exercises due to fatigue and shortness of breath. Patient reports fatigued after treatment. Patient was left seated in chair with call light within reach.) Physical Therapy Problem List: Detail (1) Minimal weakness in bilateral LE's 2) Decreased ability to ambulate distances 3) Decreased ability to complete sustained physical activity as required for ADL's 4) Non ambulatory on stairs) Physical Therapy Goals: 1) Assess patient's bed mobility. 2) Assess patient's balance using standardized balance test - met; Tinetti total score 24/28 = low risk of falls, with assistive device. 3) The patient will ambulate with appropriate assistive device distances of 150 feet plus mantaining appropriate O2 sat. level. 4)The patient will ambulate on stairs with supervision. 5) The patient will be independent with bed mobility. 6) The patient will tolerate 30 minutes of activity with one to 2 rest periods and maintaining safe O2 sat. level Prognosis: Good Physical Therapy Plan: PT 1-2 times a day M-F for gait training, LE strengthening and muscular endurance exercises, bed mobility, breathing exercises including pursed lip breathing.
--- NOTE | 2018-01-14 17:39 | Physical Therapy Tx Note ---
Physical Therapy Tx Note - Treatment Note Tolerated: Fair Total Time Spent With Patient: 20 Physical Therapy Tx Note: Detail (The patient ambulated with 4 wheeled walker a distance of 40 feet x 1 (O2 sat dropped to 82) the patient rested for one minute until O2 sat returned to 92. The patient then ambulated 120 feet with O2 sat. remaining in the 90's. The patient completed UE exercises including elbow flexion extension with red T-band, shoulder flexion and shoulder abduction without bands and scapular retraction with yellow T-band. All with 10 reps. The patient's O2 sats remained in the 90's. The patient was left in the chair with present.) Physical Therapy Problem List: Detail (1) Minimal weakness in bilateral LE's 2) Decreased ability to ambulate distances 3) Decreased ability to complete sustained physical activity as required for ADL's 4) Non ambulatory on stairs) Physical Therapy Goals: 1) Assess patient's bed mobility. 2) Assess patient's balance using standardized balance test - met; Tinetti total score 24/28 = low risk of falls, with assistive device. 3) The patient will ambulate with appropriate assistive device distances of 150 feet plus mantaining appropriate O2 sat. level. 4)The patient will ambulate on stairs with supervision. 5) The patient will be independent with bed mobility. 6) The patient will tolerate 30 minutes of activity with one to 2 rest periods and maintaining safe O2 sat. level Physical Therapy Plan: PT 1-2 times a day M-F for gait training, LE strengthening and muscular endurance exercises, bed mobility, breathing exercises including pursed lip breathing.
[2018-01-14] MEDS: TAMSULOSIN HCL 0.4 MG CAP.ER.24H PO SCH (19:53)
[2018-01-15] MEDS: UMECLIDINIUM BROMIDE (INCRUSE) 62.5MCG IH SCH (05:51)
[2018-01-15] MEDS: BREO (FLUTICASONE/VILANTEROL) 200MCG/25MCG INHALER INH SCH (05:54)
[2018-01-15] MEDS: ASPIRIN 81 MG TABEC PO SCH (06:02)
[2018-01-15] MEDS: ATORVASTATIN 20 MG TABLET PO SCH (06:02)
[2018-01-15] MEDS: TOPIRAMATE 25MG TABLET PO SCH ×3 (06:02→20:34)
[2018-01-15] MEDS: SOTALOL HCL 80 MG TABLET PO SCH ×2 (06:02→20:33)
[2018-01-15] MEDS: PANTOPRAZOLE SODIUM 40 MG TABLET PO SCH ×2 (06:02→20:34)
[2018-01-15] MEDS: LISINOPRIL 5 MG TABLET PO SCH (06:02)
[2018-01-15] MEDS: CARBIDOPA/LEVODOPA 25MG/100MG TABLET PO SCH ×3 (06:02→20:34)
[2018-01-15] MEDS: CLOPIDOGREL 75MG TABLET PO SCH (06:02)
[2018-01-15] MEDS: GABAPENTIN 300 MG CAPSULE PO SCH ×3 (06:05→20:33)
[2018-01-15] MEDS: FLUTICASONE PROPIONATE 50MCG NASAL 16 GM BTL SCH (06:05)
[2018-01-15] MEDS: CIPROFLOXACIN 500 MG PO SCH ×2 (06:06→17:35)
[2018-01-15] MEDS: MIDODRINE 2.5 MG PO SCH ×3 (06:07→20:34)
[2018-01-15] MEDS: CALCIUM CARB/VITAMIN D 500MG/200IU PO SCH ×2 (08:49→17:32)
[2018-01-15] MEDS: MULTIVITAMINS/MINERALS TABLET PO SCH (08:50)
[2018-01-15] MEDS: FERROUS SULFATE 325 MG TAB PO SCH ×3 (08:50→17:34)
--- NOTE | 2018-01-15 10:33 | Physical Therapy Tx Note ---
Physical Therapy Tx Note - Treatment Note Tolerated: Good Total Time Spent With Patient: 35 Physical Therapy Tx Note: Detail (Patient states feeling good today. Patient transferred sit to and from stand SBA x1. Patient ambulated 57 feet, 60 feet, and 32 feet with four wheeled walker SBA x1 with 6L portable oxygen. Patient performed the following exercises with 4L oxygen x10-15 reps each: standing hamstring curls, LAQ, seated marching, seated ankle pumps, seated hamstring curls with red theraband, seated hip abduction with red theraband, and seated isometric hip adduction. Patient tolerated treatment well. Patient required more rest breaks with ambulation and exercises today due to shortness of breath and fatigue. Patient reports tired after treatment. Patient was left seated in chair with call light within reach.) Physical Therapy Problem List: Detail (1) Minimal weakness in bilateral LE's 2) Decreased ability to ambulate distances 3) Decreased ability to complete sustained physical activity as required for ADL's 4) Non ambulatory on stairs) Physical Therapy Goals: 1) Assess patient's bed mobility. 2) Assess patient's balance using standardized balance test - met; Tinetti total score 24/28 = low risk of falls, with assistive device. 3) The patient will ambulate with appropriate assistive device distances of 150 feet plus mantaining appropriate O2 sat. level. 4)The patient will ambulate on stairs with supervision. 5) The patient will be independent with bed mobility. 6) The patient will tolerate 30 minutes of activity with one to 2 rest periods and maintaining safe O2 sat. level Prognosis: Good Physical Therapy Plan: PT 1-2 times a day M-F for gait training, LE strengthening and muscular endurance exercises, bed mobility, breathing exercises including pursed lip breathing.
[2018-01-15] MEDS: HYDROCODONE/APAP 5/325MG TABLET PO PRN (12:53)
--- NOTE | 2018-01-15 14:01 | Physical Therapy Tx Note ---
Physical Therapy Tx Note - Treatment Note Physical Therapy Tx Note: Detail (Patient refused treatment due to right shoulder pain and short of breath this afternoon. Patients just applied biofreeze to right shoulder prior to SALES OFFICE ASSISTANT arrival. Patient declined manual or LEs exercises.) Physical Therapy Problem List: Detail (1) Minimal weakness in bilateral LE's 2) Decreased ability to ambulate distances 3) Decreased ability to complete sustained physical activity as required for ADL's 4) Non ambulatory on stairs) Physical Therapy Goals: 1) Assess patient's bed mobility. 2) Assess patient's balance using standardized balance test - met; Tinetti total score 24/28 = low risk of falls, with assistive device. 3) The patient will ambulate with appropriate assistive device distances of 150 feet plus mantaining appropriate O2 sat. level. 4)The patient will ambulate on stairs with supervision. 5) The patient will be independent with bed mobility. 6) The patient will tolerate 30 minutes of activity with one to 2 rest periods and maintaining safe O2 sat. level Physical Therapy Plan: PT 1-2 times a day M-F for gait training, LE strengthening and muscular endurance exercises, bed mobility, breathing exercises including pursed lip breathing.
--- NOTE | 2018-01-15 18:22 | Discharge Summary ---
Providers Discharge Summary Date: 01/15/18 Date of admission: 01/07/18 15:42 Expected Date of Discharge: 01/16/18 Attending physician: RAGHAV GRUBBS Primary care physician: NATI BROWN MD Physical Exam - Vital Signs Vital Signs: Vital Signs - Last 24 Hrs Temp Pulse Pulse Resp BP BP Pulse Ox 01/15/18 10:48 98.8 F 131/76 01/15/18 07:41 98.8 F 75 18 131/76 98 01/15/18 05:56 72 16 98 01/14/18 20:00 99 F 78 18 114/78 98 - General General Appearance: Alert, Oriented x3, Cooperative, No acute distress Limitations: Physical limitation (hearing loss of left ear) - Head Head exam: Normal inspection - Eye Eye exam: Normal appearance, PERRL - ENT ENT exam: Normal exam, Mucous membranes moist, Normal external ear exam, Normal orophraynx, TM's normal bilaterally - Neck Neck exam: Normal inspection, Full ROM. negative: Tenderness - Respiratory Respiratory exam: Decreased breath sounds (right lower lobe), Prolonged expiratory. negative: Accessory muscle use, Respiratory distress, Wheezes - Cardiovascular Cardiovascular Exam: Regular rate, Normal rhythm, Normal heart sounds - GI/Abdominal GI/Abdominal exam: Soft, Normal bowel sounds. negative: Tenderness - Extremities Extremities exam: Normal inspection, Full ROM, Normal capillary refill. negative: Tenderness - Neurological Neurological exam: Alert, Normal gait, Oriented X3, Reflexes normal - Psychiatric Psychiatric exam: Normal affect, Normal mood - Skin Skin exam: Dry, Intact, Normal color, Warm Hospitalization - Hospitalization Admission Diagnosis: Deconditioning d/t COPD and PNA - Problem List/Discharge Diagnosis (1) Physical deconditioning Status: Acute Base Code: R53.81 - OTHER MALAISE Comment: 01/15/18- patient is deconditioned following hospitalization for COPD exacerbation/pneumonia. -has done very well with therapy -Plan to discharge home 01/16/18. He will continue home therapy set up by social work. (2) COPD exacerbation Status: Acute Base Code: J44.1 - CHRONIC OBSTRUCTIVE PULMONARY DISEASE W ( ACUTE) EXACERBATION Comment: 01/15/18- resolved. continues to sat >95% on 4L via NC. Only feels SOB with exertion. - to schedule follow up with waste disposal leakage tester and pcp in 7-10 days -continue home nursing (3) Full code status Status: Acute Base Code: Z78.9 - OTHER SPECIFIED HEALTH STATUS Comment: 01/15- Full code status - Hospitalization Course Disposition: Home Health Service Hospital Course: 82yo male admitted to [facility] for deconditioning related to recent hospitalization at [facility] for acute on chronic respiratory failure from COPD and pneumonia. He has history of non-small cell lung cancer s/p right lower lobectomy, CAD s/p PCI, p. afib, SVT s/p ablation, GIB with watchman device placed in 2016, HTN, GERD, parkinson's disease, chronic anemia and hearing loss. Patient was admitted to [facility] on 01/01/18 with respiratory failure related to penumonia. he was treated for pseudomonas in sputum with meropenam and steroids. He did well and was transitioned to oral cipro and steroid taper with prednisone. He continued to be weak and was belong baseline with his breathing especially with activity. PT/OT at [facility] evaluated him and recommended continued therapy with JUAREZ. 01/08/18- Patient states he is doing well today. He says overall his breathing has improved and he does not feel short of breath at rest with 4L O2 via NC. He still gets winded easily with activity. He is not having any cough, sputum production, fever, chills. says he seems to be breathing much better since his hospitalization. He is having some loose stool since starting abx therapy, but denies abdominal pain/cramping. 01/15/18- Patient states he continues to do well. He has done very well in therapy and will continue with home health. He denies any shortness of breath increased from baseline. pcp: Dr. Brown : Procedures: Cardiology Procedures 01/08/18 07:38 EKG NOW 01/09/18 06:00 EKG DAILY EKG [id number] Condition at Discharge: (1) Good Discharge Medications - Discharge Medications Home Medications: Ambulatory Orders Albuterol Sulfate [Ventolin Hfa] 1 - 2 puff IH .EVERY 4-6 HRS PRN 01/17/15 [ Last Taken 06/24/16] Aspirin [Aspirin EC] 81 mg PO DAILY 01/17/15 [Last Taken 06/24/16] Calcium Carbonate/Vitamin D3 [Calcium 600 + Vit D Tablet] 1 each PO BID [Last Taken 06/24/16] Clopidogrel Bisulfate [Plavix] 75 mg PO DAILY 01/17/15 [Last Taken 06/24/16] Ferrous Sulfate [Iron] 650 mg PO DAILY 01/17/15 [Last Taken 06/24/16] Gabapentin [Neurontin] 300 mg PO QID 01/17/15 [Last Taken 06/24/16] Glucosam/Howard-Msm1/C/Angel/Bosw [Osteo Bi-Flex] 2 tab PO DAILY 01/17/15 [Last Taken 06/24/16] Hydrocodone/Acetaminophen [[place] 7.5mg/325mg] 1 tab PO BID PRN 01/17/15 [Last Taken 04/22/16] Midodrine HCl 2.5 mg PO TID 01/17/15 [Last Taken 06/24/16] Multivitamin [Multi-Vitamin Daily] 1 each PO DAILY 01/17/15 [Last Taken 06/24/16 ] Nitroglycerin [Nitrostat] 0.4 mg SL ASDIR 01/17/15 [Last Taken 1 Day Ago ~] Tamsulosin HCl [Flomax] 0.4 mg PO DAILY 01/17/15 [Last Taken 06/24/16] Tiotropium [place] [Spiriva] 18 mcg IH DAILY 01/17/15 [Last Taken 06/24/16] Carbidopa/Levodopa [Sinemet 25-100 mg Tablet] 1 each PO BID 02/26/15 [Last Taken 06/24/16] Sotalol HCl [Sotalol] 80 mg PO DAILY 02/26/15 [Last Taken 06/24/16] Budesonide/Formoterol Fumarate [Symbicort 160-4.5 Mcg Inhaler] 2 puff IH BID puff 04/22/16 [Last Taken 06/25/16] Topiramate 50 mg PO BID tab 04/22/16 [Last Taken 06/24/16] Atorvastatin Calcium #30 11/27/16 [Last Taken Unknown] Discharge Plan - Discharge Instructions Activity at Discharge: As Per Physical Therapy Instructions: COPD (Chronic Obstructive Pulmonary Disease) (DC) Additional Instructions: Please follow up with your Primary Care Provider in 7-10 days Resume home medications Please call with questions or concerns Quality Measures - Quality Measures Quality Measures: Atrial Fibrillation & Atrial Flutter: Chronic Anticoagulation Therapy, Advance Directives, Documentation of Current Medications in Medical Record, Elder Maltreatment Screen and Follow-Up Plan, Screening for High Blood Pressure and F/U Documented - Current Medications Quality Measure: Measure #130: Documentation of Current Medications Documentation of Current Medications: <Current Medications Documented/Reviewed> [G8413] - Blood Pressure Screening Quality Measure: Screening for High Blood Pressure and Follow-Up Documented Does Patient Have Any of the Following: Active Dx of HTN Blood Pressure Classification: Pre-Hypertensive BP Reading Systolic Measurement: 131 Diastolic Measurement: 76 Screening for High Blood Pressure: Patient Exclusion, Hx of HTN [G9744] - Atrial Fibrillation and Atrial Flutter Quality Measure: Atrial Fibrillation & Atrial Flutter: Chronic Anticoagulation Therapy Does Patient Have Any of the Following: No CHADS2 Risk Stratification: Age 75 or Greater, Hypertension Risk Stratification Summary: One or more high risk factors OR more than one moderate risk factor exists. [G8972] Anticoagulation Therapy: <Oral anticoagulant Prescribed> [G8967] - Advance Directives Quality Measure: Measure #47: Care Plan Advance Directives Established: No Advance Directives Information Provided To Patient: No Advance Directives on File: No Living Will: Yes Power of Wine Specialist: Yes Power of Wine Specialist Name: Addie Crawford Advance Care Planning: <Care Plan/Decision Maker Documented; Discussed & Documented> [1123F] - Elder Abuse Suspicion Index Screening: Elder Abuse Suspicion Index Screening Rely on people for bathing, dressing, shopping, banking, etc: Yes Prevented from getting food, clothes, medication, etc: No Made to feel shamed or threatened by someone: No Forced to sign papers or use money against will: No Feel afraid, touched in ways not wanted or hurt physically: No Poor eye contact, withdrawn, malnourished, cuts or bruises: No Screening Result: Negative result EASI Reference Information: Kerry TATE, Goldie C, Gonzalez D, Marcia M.Development and validation of a tool to assist physicians identification of elder abuse: The Elder Abuse Suspicion Index (EASI ). Journal of Elder Abuse and Neglect, 2008; 20 (3): 276-300. - Elder Maltreatment Screen Quality Measures: Elder Maltreatment Screen and Follow-Up Plan Elder Maltreatment Screen: <Negative, No Follow-Up Plan Required> [G8734]
[2018-01-15] MEDS: TAMSULOSIN HCL 0.4 MG CAP.ER.24H PO SCH (20:33)
[2018-01-16] MEDS: BREO (FLUTICASONE/VILANTEROL) 200MCG/25MCG INHALER INH SCH (05:46)
[2018-01-16] MEDS: UMECLIDINIUM BROMIDE (INCRUSE) 62.5MCG IH SCH (05:46)
[2018-01-16] MEDS: SOTALOL HCL 80 MG TABLET PO SCH (05:57)
[2018-01-16] MEDS: PANTOPRAZOLE SODIUM 40 MG TABLET PO SCH (05:57)
[2018-01-16] MEDS: CLOPIDOGREL 75MG TABLET PO SCH (05:57)
[2018-01-16] MEDS: CARBIDOPA/LEVODOPA 25MG/100MG TABLET PO SCH (05:57)
[2018-01-16] MEDS: GABAPENTIN 300 MG CAPSULE PO SCH (05:57)
[2018-01-16] MEDS: LISINOPRIL 5 MG TABLET PO SCH (05:57)
[2018-01-16] MEDS: ATORVASTATIN 20 MG TABLET PO SCH (05:58)
[2018-01-16] MEDS: ASPIRIN 81 MG TABEC PO SCH (06:00)
[2018-01-16] MEDS: TOPIRAMATE 25MG TABLET PO SCH (06:00)
[2018-01-16] MEDS: FLUTICASONE PROPIONATE 50MCG NASAL 16 GM BTL SCH (06:00)
[2018-01-16] MEDS: CIPROFLOXACIN 500 MG PO SCH (06:01)
[2018-01-16] MEDS: MIDODRINE 2.5 MG PO SCH (06:01)
[2018-01-16] MEDS: MULTIVITAMINS/MINERALS TABLET PO SCH (09:10)
[2018-01-16] MEDS: FERROUS SULFATE 325 MG TAB PO SCH (09:10)
[2018-01-16] MEDS: CALCIUM CARB/VITAMIN D 500MG/200IU PO SCH (09:10)
--- NOTE | 2018-01-16 10:15 | Rehab Evaluation ---
Patient Information - Patient Information Diagnosis: Deconditioning due to COPD and PNA Ordered Treatment: OT Evaluate and Treat History: Detail (The patient was transferred from [facility] Past Medical/Surgical Hx: PAST MEDICAL/SURGICAL HISTORY Past Surgical History Stents X2 RLL removed From [place] Apendix 2009 Untwist bowel EGD funduplication PMH - Respiratory Hx Respiratory Disorders Yes Hx Chronic Obstructive Yes Pulmonary Disease (COPD) Comment: RLlobe removed from [place] PMH - Cardiovascular Hx Cardiovascular Disorders Yes Hx Abnormal EKG Yes Hx Cardiac Catheterization Yes: recent cath [facility] 01/17/2015 Hx Edema Yes Hx Heart Attack Yes Hx Hypertension Yes Hx Irregular Heartbeat Yes Comment: [place] with 3 stents PMH - Neuro Hx Neurological Disorders Yes Hx Dizziness Yes Hx Seizures No PMH - GI Hx Gastrointestinal Disorders Yes Hx Gastroesophageal Reflux Yes Hx Obstructive Bowel Yes PMH - Hx Genitourinary Disorders No PMH - Endocrine Hx Endocrine Disorders No PMH - Musculoskeletal Hx Musculoskeletal Disorders Yes Hx Arthritis Yes PMH - Psych Hx Psychiatric Problems No PMH - Hematology/Oncology Hx Hematology/Oncology Yes Disorders Hx Cancer Yes: Lung Hx Chemotherapy No Hx Radiation Therapy No Premorbid Status: Detail (Prior to recent hospital admission per patient's family, patient was ambulatory without device in home and with 4 wheeled walker out in the community.) Social History: Detail (Patient lives with spouse in one story home with one step at the entrance into the kitchen with a grab bar on the right side when ascending stairs. The patient's bathroom is equipped with a [id number] with a small step/lip to step in and a shower seat and a high rise toilet. The patient typically stands to shower. The patient was independent with all ADL's and was responsible for all home mgmt, meal prep and laundry tasks. The patient has a 2 wheeled walker, a 4 wheeled walker and home O2.) Precautions: [place], Fall, Other ([place]) Subjective Information - Subjective Information Per Patient (The patient had no complaints. The patient feels he is less winded with activty.) Objective Data - Mental Status Patient Orientation: Oriented x3 - Visual Perception Appears within normal limits for therapeutic activities - ROM Within normal limits (LE AROM is WNL.) - Strength/Tone Within normal limits (The patient's LE strength is now generally 5/5.) - Bed Mobility Independent - Transfers Independent (The patient is independent with sit to and from stand transfer and toilet transfer.) - Balance Balance Sitting: Good Balance Standing: Good (The patient was a low risk for falling using the Tinetti Balance Assessment Tool.) - Gait Detail (The patient ambulated independently with assistive device with 6L of O2 with 4 wheeled walker distances of a maximum of 149 feet with 2 rest periods with O2 sats occasionally as low as 82, however usually remaining in the 90's. The patient used appropriate pursed lip breathing requiring occasional cues to complete techniques when ambulating. The patient ambulated on 3 steps with use of one railing and 6 L of O2.) Therapy Assessment - Therapy Assessment Detail (The patient had improved endurance with physical activity and improved LE strength.) Patient Education - Patient Education Teaching Topic: Exercise/Activity (The patient was independent with a LE strengthening and muscular endurance exercise program.) Response: Return Demonstration Teaching Method: Demonstration, Handout Teaching Recipient: Patient, Family Barriers To Learning: Age Related, Auditory Problem List - Problem List Physical Therapy Problem List: Detail (1) Minimal weakness in bilateral LE's 2) Decreased ability to ambulate distances 3) Decreased ability to complete sustained physical activity as required for ADL's 4) Non ambulatory on stairs) Occupational Therapy Problem List: Detail (1. Decreased Ind with showering. 2. Decreased endurance needed for safe and Ind ADLs and functional mobility.) Goals - Goals Physical Therapy Goals: 1) Assess patient's bed mobility( Met). 2) Assess patient's balance using standardized balance test - met; Tinetti total score 24/ 28 = low risk of falls, with assistive device. 3) The patient will ambulate with appropriate assistive device distances of 150 feet plus mantaining appropriate O2 sat. level. (Partially Met). 4)The patient will ambulate on stairs with supervision (Met). 5) The patient will be independent with bed mobility. (Met). 6) The patient will tolerate 30 minutes of activity with one to 2 rest periods and maintaining safe O2 sat. level ( Partially Met) Occupational Therapy Goals: 1. Pt will be safe and Ind with showering in sitting and standing. 2. Pt will demonstrate improved endurance needed for safe and Ind self cares and functional mobility. Plan - Plan Physical Therapy Plan: The patient is discharging to home. The patient is to receive Home Therapy Services. Occupational Therapy Plan: OT 2-4 days per week to address showering, functional mobility and overall endurance needed for safe and Ind return home with .
--- NOTE | 2018-01-16 14:01 | Rehab Discharge Summary ---
Patient Information - Patient Information Diagnosis: Deconditioning due to COPD and PNA Ordered Treatment: OT Evaluate and Treat History: Detail (The patient was transferred from [facility] Past Medical/Surgical Hx: PAST MEDICAL/SURGICAL HISTORY Past Surgical History Stents X2 RLL removed From [place] Apendix 2009 Untwist bowel EGD funduplication PMH - Respiratory Hx Respiratory Disorders Yes Hx Chronic Obstructive Yes Pulmonary Disease (COPD) Comment: RLlobe removed from [place] PMH - Cardiovascular Hx Cardiovascular Disorders Yes Hx Abnormal EKG Yes Hx Cardiac Catheterization Yes: recent cath [facility] 01/17/2015 Hx Edema Yes Hx Heart Attack Yes Hx Hypertension Yes Hx Irregular Heartbeat Yes Comment: [place] with 3 stents PMH - Neuro Hx Neurological Disorders Yes Hx Dizziness Yes Hx Seizures No PMH - GI Hx Gastrointestinal Disorders Yes Hx Gastroesophageal Reflux Yes Hx Obstructive Bowel Yes PMH - Hx Genitourinary Disorders No PMH - Endocrine Hx Endocrine Disorders No PMH - Musculoskeletal Hx Musculoskeletal Disorders Yes Hx Arthritis Yes PMH - Psych Hx Psychiatric Problems No PMH - Hematology/Oncology Hx Hematology/Oncology Yes Disorders Hx Cancer Yes: Lung Hx Chemotherapy No Hx Radiation Therapy No Premorbid Status: Detail (Prior to recent hospital admission per patient's family, patient was ambulatory without device in home and with 4 wheeled walker out in the community.) Social History: Detail (Patient lives with spouse in one story home with one step at the entrance into the kitchen with a grab bar on the right side when ascending stairs. The patient's bathroom is equipped with a [id number] with a small step/lip to step in and a shower seat and a high rise toilet. The patient typically stands to shower. The patient was independent with all ADL's and was responsible for all home mgmt, meal prep and laundry tasks. The patient has a 2 wheeled walker, a 4 wheeled walker and home O2.) Precautions: [place], Fall, Other ([place]) Subjective Information - Subjective Information Per Patient Objective Data - Pain Pain Present: No - Mental Status Patient Orientation: Oriented x3 - Visual Perception Appears within normal limits for therapeutic activities (Pt wears glasses at all times.) - ROM Within normal limits ([place] UE AROM WNL) - Strength/Tone Within normal limits ([place] UE strength 4+/5) - Coordination Appears within normal limits for therapeutic activities - Bed Mobility Independent - Transfers Independent (Ind with sit to stand) - Balance Balance Sitting: Good Balance Standing: Good - Sensation Intact - Gait Detail (Pt ambulating household distances with walker.) - ADL's/IADL's Detail (Ind with showering in sitting, total body dressing and grooming/hygiene tasks. He is very short of breath with activity even with 3-4 liters of oxygen although he is able to appropriately demonstrate use of pursed lip breathing techniques.) Therapy Assessment - Therapy Assessment Detail (Pt is safe and Ind with functional mobility and all ADLs.) Problem List - Problem List Physical Therapy Problem List: Detail (1) Minimal weakness in bilateral LE's 2) Decreased ability to ambulate distances 3) Decreased ability to complete sustained physical activity as required for ADL's 4) Non ambulatory on stairs) Occupational Therapy Problem List: Detail (1. Decreased Ind with showering. 2. Decreased endurance needed for safe and Ind ADLs and functional mobility.) Goals - Goals Physical Therapy Goals: 1) Assess patient's bed mobility( Met). 2) Assess patient's balance using standardized balance test - met; Tinetti total score 24/ 28 = low risk of falls, with assistive device. 3) The patient will ambulate with appropriate assistive device distances of 150 feet plus mantaining appropriate O2 sat. level. (Partially Met). 4)The patient will ambulate on stairs with supervision (Met). 5) The patient will be independent with bed mobility. (Met). 6) The patient will tolerate 30 minutes of activity with one to 2 rest periods and maintaining safe O2 sat. level ( Partially Met) Occupational Therapy Goals: Goals Met: 1. Pt will be safe and Ind with showering in sitting and standing. 2. Pt will demonstrate improved endurance needed for safe and Ind self cares and functional mobility. Prognosis - Prognosis Good Plan - Plan Physical Therapy Plan: The patient is discharging to home. The patient is to receive Home Therapy Services. Occupational Therapy Plan: Pt is discharged home with and he will be receiving home OT/PT.
== END 2018-01-16 10:40 | disposition home health service (06) | DRG 190 ==
LOC: MEDSURG 15:42
PROVIDERS: ADMIT Internal Medicine; ATTEND Internal Medicine
DX: J44.1 Chronic obstructive pulmonary disease with (acute) exacerbation (principal); J18.9 Pneumonia, unspecified organism; I47.1 Supraventricular tachycardia; Z85.118 Personal history of other malignant neoplasm of bronchus and lung; I25.10 Atherosclerotic heart disease of native coronary artery without angina pectoris; I48.91 Unspecified atrial fibrillation; Z79.01 Long term (current) use of anticoagulants; I10 Essential (primary) hypertension; K21.9 Gastro-esophageal reflux disease without esophagitis; G20 Parkinson's disease; D53.9 Nutritional anemia, unspecified; Z87.891 Personal history of nicotine dependence; H91.92 Unspecified hearing loss, left ear
CPT/HCPCS: 93005; 93010; 94640; 94760; 94761; 97110; 97116; 97530; 97535; 99306; 99316; J7512

== ENCOUNTER 2018-01-31 11:13 | Inpatient (IN) | payer MEDICARE ==
[2018-02-02] MEDS: CALCIUM CARB/VITAMIN D 500MG/200IU PO SCH (17:53)
[2018-02-02] MEDS: FERROUS SULFATE 325 MG TAB PO SCH (17:54)
[2018-02-02] MEDS: NYSTATIN 100,000 UNITS/ML 5ML CUP PO SCH ×2 (17:57→22:55)
[2018-02-02] MEDS: PANTOPRAZOLE SODIUM 40 MG TABLET PO SCH (20:24)
[2018-02-02] MEDS: TOPIRAMATE 25MG TABLET PO SCH (20:25)
[2018-02-02] MEDS: CARBIDOPA/LEVODOPA 25MG/100MG TABLET PO SCH (20:25)
[2018-02-02] MEDS: GABAPENTIN 300 MG CAPSULE PO SCH (20:25)
[2018-02-02] MEDS: SOTALOL HCL 80 MG TABLET PO SCH (20:25)
[2018-02-02] MEDS ORDERED: ZYVOX (LINEZOLID) 600MG/300 ML 600 MG/300 ML BAG IVPB ONE (22:00)
[2018-02-03] MEDS: GABAPENTIN 300 MG CAPSULE PO SCH ×3 (05:35→20:20)
[2018-02-03] MEDS: TOPIRAMATE 25MG TABLET PO SCH ×3 (05:35→20:20)
[2018-02-03] MEDS: ASPIRIN 81 MG TABEC PO SCH (05:35)
[2018-02-03] MEDS: SOTALOL HCL 80 MG TABLET PO SCH ×2 (05:36→20:20)
[2018-02-03] MEDS: CLOPIDOGREL 75MG TABLET PO SCH (05:36)
[2018-02-03] MEDS: ATORVASTATIN 20 MG TABLET PO SCH (05:36)
[2018-02-03] MEDS: CARBIDOPA/LEVODOPA 25MG/100MG TABLET PO SCH ×3 (05:37→20:20)
[2018-02-03] MEDS: PANTOPRAZOLE SODIUM 40 MG TABLET PO SCH ×2 (05:37→20:20)
[2018-02-03] MEDS: LISINOPRIL 5 MG TABLET PO SCH (05:37)
[2018-02-03] MEDS: FLUTICASONE PROPIONATE 50MCG NASAL 16 GM BTL SCH (05:39)
[2018-02-03] MEDS: BREO (FLUTICASONE/VILANTEROL) 200MCG/25MCG INHALER INH SCH (05:40)
[2018-02-03] MEDS: UMECLIDINIUM BROMIDE (INCRUSE) 62.5MCG IH SCH (05:40)
[2018-02-03] MEDS ORDERED: PREDNISONE 20 MG TAB PO SCH (08:00)
--- NOTE | 2018-02-03 08:06 | Rehab Evaluation ---
Patient Information - Patient Information Diagnosis: MRSA, bilateral pneumonia Ordered Treatment: OT Evaluate and Treat Status: Initial Evaluation Surgery: No Past Medical/Surgical Hx: PAST MEDICAL/SURGICAL HISTORY Past Surgical History Stents X2 RLL removed From [place] Apendix 2010 Untwist bowel EGD funduplication PMH - Respiratory Hx Respiratory Disorders Yes Hx Chronic Obstructive Yes Pulmonary Disease (COPD) Comment: RLlobe removed from [place] PMH - Cardiovascular Hx Cardiovascular Disorders Yes Hx Abnormal EKG Yes Hx Cardiac Catheterization Yes: recent cath [place] 01/17/2015 Hx Edema Yes Hx Heart Attack Yes Hx Hypertension Yes Hx Irregular Heartbeat Yes Comment: [place] with 3 stents PMH - Neuro Hx Neurological Disorders Yes Hx Dizziness Yes Hx Seizures No PMH - GI Hx Gastrointestinal Disorders Yes Hx Gastroesophageal Reflux Yes Hx Obstructive Bowel Yes PMH - Hx Genitourinary Disorders No PMH - Endocrine Hx Endocrine Disorders No PMH - Musculoskeletal Hx Musculoskeletal Disorders Yes Hx Arthritis Yes PMH - Psych Hx Psychiatric Problems No PMH - Hematology/Oncology Hx Hematology/Oncology Yes Disorders Hx Cancer Yes: Lung Hx Chemotherapy No Hx Radiation Therapy No Premorbid Status: Detail (Pt lives with in a 1 story house. There is 1 step with a grab bar into the kitchen. He has a walk in shower with a seat and an elevated toilet seat. He was Ind with self cares and was responsible for all home mgmt, meal prep and laundry. He has a 2 wheeled walker, 4 wheeled walker and uses home oxygen.) Social History: Detail (Very supportive .) Precautions: [place], Fall, Other (droplet precautions.) - Time With Patient Total Time Spent With Patient (Min): 40 Treatment Procedures: Detail (OT eval low complexity) Subjective Information - Subjective Information Per Patient Objective Data - Pain Pain Present: No - Mental Status Patient Orientation: Oriented x3 - Visual Perception Appears within normal limits for therapeutic activities (Pt wears glasses at all times.) - ROM Within normal limits ([place] UE AROM WNL) - Strength/Tone Within normal limits ([place] UE strength 4+/5) - Coordination Appears within normal limits for therapeutic activities - Bed Mobility Independent (Ind with supine to sit) - Transfers Independent (Ind with sit to stand from EOB) - Balance Balance Sitting: Good Balance Standing: Good - Sensation Intact - Gait Detail (Pt ambulated in room and bathroom without assistive device using 6 liters of oxygen and significant shortness of breath.) - ADL's/IADL's Detail (Pt able to complete total body dressing including doffing gown and slippers and donning t-shirt, sweatpants, underpants, socks and tennis shoes using 6 liters of oxygen. Pt able to stand to toilet Indly.) Therapy Assessment - Therapy Assessment Detail (Pt Ind with dressing and functional mobility in his room using 6 liters of oxygen although he becomes significantly short of breath and requires continuous rest breaks for pursed lip breathing.) Problem List - Problem List Occupational Therapy Problem List: Detail (1. Decreased endurance needed for safe and Ind ADLs and functional mobility. 2. Need to assess showering safety. ) Goals - Goals Occupational Therapy Goals: 1. Pt will be safe and Ind with showering in sitting while using 4-6 liters of oxygen and modified breathing techniques. 2. Pt will demonstrate improved endurance and Ind with modified breathing techniques to allow safe return home. Prognosis - Prognosis Good Plan - Plan Occupational Therapy Plan: OT 2-4 days per week to address self cares, functional mobility and endurance to allow safe and Ind return home.
[2018-02-03] MEDS: FERROUS SULFATE 325 MG TAB PO SCH ×3 (08:07→17:37)
[2018-02-03] MEDS: CALCIUM CARB/VITAMIN D 500MG/200IU PO SCH ×2 (08:07→17:37)
[2018-02-03] MEDS: NYSTATIN 100,000 UNITS/ML 5ML CUP PO SCH ×4 (10:00→21:54)
[2018-02-03] MEDS: TAMSULOSIN HCL 0.4 MG CAP.ER.24H PO SCH (12:10)
[2018-02-03] MEDS: LINEZOLID 600 MG TABLET PO SCH ×2 (12:11→21:54)
[2018-02-03] MEDS: LOPERAMIDE 2 MG CAPSULE PO PRN ×2 (12:12→17:37)
--- NOTE | 2018-02-03 13:40 | Rehab Evaluation ---
Patient Information - Patient Information Diagnosis: MRSA, bilateral pneumonia Ordered Treatment: PT Evaluate and Treat Status: Initial Evaluation Surgery: No Past Medical/Surgical Hx: PAST MEDICAL/SURGICAL HISTORY Past Surgical History Stents X2 RLL removed From CA Apendix 2010 Untwist bowel EGD funduplication PMH - Respiratory Hx Respiratory Disorders Yes Hx Chronic Obstructive Yes Pulmonary Disease (COPD) Comment: RLlobe removed from CA PMH - Cardiovascular Hx Cardiovascular Disorders Yes Hx Abnormal EKG Yes Hx Cardiac Catheterization Yes: recent cath [place] 01/17/2015 Hx Edema Yes Hx Heart Attack Yes Hx Hypertension Yes Hx Irregular Heartbeat Yes Comment: PA with 3 stents PMH - Neuro Hx Neurological Disorders Yes Hx Dizziness Yes Hx Seizures No PMH - GI Hx Gastrointestinal Disorders Yes Hx Gastroesophageal Reflux Yes Hx Obstructive Bowel Yes PMH - Hx Genitourinary Disorders No PMH - Endocrine Hx Endocrine Disorders No PMH - Musculoskeletal Hx Musculoskeletal Disorders Yes Hx Arthritis Yes PMH - Psych Hx Psychiatric Problems No PMH - Hematology/Oncology Hx Hematology/Oncology Yes Disorders Hx Cancer Yes: Lung Hx Chemotherapy No Hx Radiation Therapy No Premorbid Status: Detail (Pt lives with in a 1 story house. There is 1 step with a grab bar into the kitchen. He has a walk in shower with a seat and an elevated toilet seat. He was Ind with self cares and was responsible for all home mgmt, meal prep and laundry. He has a 2 wheeled walker, 4 wheeled walker and uses home oxygen.) Social History: Detail (Very supportive .) Precautions: [place], Fall, Other (droplet precautions.) - Time With Patient Total Time Spent With Patient (Min): 20 Treatment Procedures: Detail (Initial Evaluation only-patient was not feeling well.) Subjective Information - Subjective Information Per Patient (The patient had complaints of fatigue and weakness. The patient's stated the patient felt bad this pm due to diarrhea. The patient's breathing was labored at rest. The patient was [place] and required hand motions to follow directions at times.) Objective Data - Mental Status Patient Orientation: Oriented x3 - Visual Perception Appears within normal limits for therapeutic activities - ROM Within normal limits (The patient's LE AROM is WNL.) - Strength/Tone Not within normal limits (The patient's LE strength was as follows: hip flexors and adductors R 4-/5, L 4/5, bilateral hip abductors 4/5, bilateral quadriceps 5/5, bilateral hamstrings 4/5, ankle musculature 4+/5.) - Bed Mobility Needs Assist (Not evaluated due to patient not feeling well.) - Transfers Needs Assist (Moderate PA of 1 with sit to stand due to fatigue and not feeling well. CG with stand to sit.) - Balance Balance Sitting: Good Balance Standing: Fair (Unable to fully evaluate due to fatigue level.) - Gait Detail (The patient refused ambulation due to fatigue and not feeling well.) - Special Tests Yes (O2 sat levels: The patient's breathing was labored at rest. The patient felt he was not getting " good O2" ( the patient was on 4L). O2 sat level was checked at rest x 2 and was 97. After stand level dropped to 92. Patient's stated that nursing staff was aware of the patient's complaints of O2 and were checking into it.) Therapy Assessment - Therapy Assessment Detail (PT Evaluation was limited secondary to the patient was not feeling well. The patient exhibits decreased LE strength and required assist to stand this pm, which is different from OT's am evaluation. The patient would benefit from PT to improve the patient's current functional level and increase LE strength.) Problem List - Problem List Physical Therapy Problem List: Detail (1) Shortness of breathe at rest 2) Decreased LE strength 3) Decreased ability to complete prolonged physical activity 4) Assistance with transfers) Occupational Therapy Problem List: Detail (1. Decreased endurance needed for safe and Ind ADLs and functional mobility. 2. Need to assess showering safety. ) Goals - Goals Physical Therapy Goals: 1) Evaluate bed mobility and ambulation. 2) Evaluate the patient's balance using an objective balance scale. 3) Increase LE strength 1/3 muscle grade to improve stability of gait. 4) The patient will ambulate with assistive device distances of up to 100 feet with 6 L of O2 indpendently. 5) The patient will be independent with all bed mobility and transfers. Occupational Therapy Goals: 1. Pt will be safe and Ind with showering in sitting while using 4-6 liters of oxygen and modified breathing techniques. 2. Pt will demonstrate improved endurance and Ind with modified breathing techniques to allow safe return home. Prognosis - Prognosis Good Plan - Plan Physical Therapy Plan: PT 1 to 2 times a day for LE strengthening and muscular endurance exercises, gait training, mobility training and balance exercises. Occupational Therapy Plan: OT 2-4 days per week to address self cares, functional mobility and endurance to allow safe and Ind return home.
--- NOTE | 2018-02-03 16:04 | History & Physical ---
History of Present Illness - Date Date of Service for History & Physical: 02/03/18 - History of Present Illness Admitting Diagnosis: mrsa, bilateral pneumonia History of Present Illness: 82yo male admitted to [facility] for deconditioning related to recent hospitalization at [facility] for chronic respiratory failure from COPD, multilobar MRSA pneumonia, and NSTEMI s/p stent to LAD. He has history of non- small cell lung cancer s/p right lower lobectomy, CAD s/p PCI, p. afib, SVT s/p ablation, GIB with watchman device placed in 2016, HTN, GERD, Parkinson's disease, chronic anemia and hearing loss. Pt. was recently admitted to [facility] at [facility] following a previous [facility] hospitalization for chronic respiratory failure and pneumonia (mid December). He was home for 5 days before his symptoms worsened. Patient was admitted to [facility] on 01/20/18 after worsening dyspnea and he had been increasing his home oxygen up to 5L. Labs revealed elevated troponins and BNP. Chest xray showed multilobar penumonia and sputum culture revealed MRSA. 100% LAD blockage, successful stent placement. Pt. completed course of steroids from 01/20-02/01 and he has been treated with zyvox for his MRSA pneumonia. Recommended f/u CXR in 4-6 weeks. He continued to be weak and was below baseline with his breathing especially with activity. PT/OT at [facility] evaluated him and recommended continued therapy with JUAREZ. 02/03/18- Patient states he is doing well today. He says overall his breathing has improved and he does not feel short of breath at rest with 4L O2 via [place]. He still gets winded easily with activity. He is not having any cough, sputum production, fever, chills. says he seems to be breathing much better since his hospitalization. He is having some loose stool since starting abx therapy, but denies abdominal pain/cramping. Immodium prn ordered for loose stools. PT/OT isma completed this morning and pt. to receive services daily M- F. PCP: Dr. Yanes General - Cognitive Patterns Speech: Normal Orientation: Oriented x3, Person, Place, Time, Responds to Name, Recognizes Familiar Faces or Places - Communication Preferred Language?: [place]ian Hoof Trimmer Required: No Level of Education: Grade 9-11 Preferred Method of Learning: Seeing, Doing Comprehension Ability: No Impairment (Hard of hearing) Able to Read: Yes Able to Write: Yes Select best description of speech pattern: Clear Speech Ability to express ideas and wants: Understood Understanding verbal content: Usually Understands - Mood and Behavior Patterns Appearance: Well Groomed Mood: Normal Attitude: Cooperative Motor Activity: Calm Affect: Appropriate - Psychosocial Well-Being Usual Living Arrangement: Spouse - Physical Functioning Activity Level: Up as tolerated Turning: Self ad marcell ROM Ability: Moves all extremities Assistive Devices: 2 Wheel Walker Ambulation Ability: Needs Assist Bed Mobility: Independent Transfer Ability: Independent Bathing Ability: Needs Assist Personal Hygiene: Independent Dressing Ability: Needs Assist Eating (Feeding) Ability: Independent Toileting Ability: Needs Assist Administer Own Medication: Needs Assist - Continence Bowel Pattern: Diarrhea Bladder Pattern: Normal - Dental Status Unable to examine: No Broken or loosely fitting full or partial dentures: Yes No natural teeth or tooth fragment(s) (edentulous): No Abnormal mouth tissue (ulcers, masses, oral lesions, etc.): No Obvious or likely cavity or broken natural teeth: No Inflamed or bleeding gums or loose natural teeth: No Mouth/facial pain, discomfort or difficulty chewing: No - Nutrition Screening Poor oral intake > 1 week: No Unplanned weight loss in specified time frame: No Nutrition Support via tube feedings or parenteral nutrition: No Pressure Ulcer: No Significantly underweight define as BMI <18.5 kg/m2: No Albumin <2.5mg/dL: No Persistent nausea/vomiting/diarrhea >3 days: No Difficulty chewing/swallowing/mouth sores: No Admitting Diagnosis: No Nutrition Risk Score: Low Risk Review of Systems Reviewed: No additional complaints except as noted below Constitutional: Reports: As per HPI. Denies: Chills, Fever, Malaise, Night sweats, Weakness, Weight change Eyes: Reports: As per HPI. Denies: Eye discharge, Eye pain, Photophobia, Vision change ENT: Reports: As per HPI. Denies: Congestion, Dental pain, Ear pain, Epistaxis , Hearing loss, Throat pain Respiratory: Reports: Cough. Denies: Dyspnea, Hemoptysis, Stridor, Wheezes Cardiovascular: Reports: As per HPI. Denies: Arrhythmia, Chest pain, Dyspnea on exertion, Edema, Murmurs, Orthopnea, Palpitations, Paroxysmal nocturnal dyspnea, Rheumatic Fever, Syncope Endocrine: Reports: As per HPI. Denies: Fatigue, Heat or cold intolerance, Polydipsia, Polyuria Gastrointestinal: Reports: As per HPI. Denies: Abdominal pain, Constipation, Diarrhea, Hematemesis, Hematochezia, Melena, Nausea, Vomiting Genitourinary: Reports: As per HPI. Denies: Dysuria, Frequency, Hematuria, Incontinence, Retention, Testicular pain, Testicular mass, Urgency Musculoskeletal: Reports: As per HPI. Denies: Arthralgia, Back pain, Gout, Joint swelling, Myalgia, Neck pain Skin: Reports: As per HPI. Denies: Bruising, Change in color, Change in hair/ nails, Lesions, Pruritus, Rash Neurological: Reports: As per HPI. Denies: Abnormal gait, Confusion, Headache, Numbness, Paresthesias, Seizure, Tingling, Tremors, Vertigo, Weakness Psychiatric: Reports: As per HPI. Denies: Anxiety, Auditory hallucinations, Depression, Homicidal thoughts, Suicidal thoughts, Visual hallucinations Hematological/Lymphatic: Reports: As per HPI. Denies: Anemia, Blood Clots, Easy bleeding, Easy bruising, Swollen glands Past Medical History - SOCIAL HISTORY Smoking Status: Former smoker - SURGICAL HISTORY Past Surgical History: Stents X2. RLL removed From CA. Apendix 2009. Untwist bowel. EGD. funduplication - RESPIRATORY Hx Respiratory Disorders: Yes Hx COPD: Yes Comment:: RLlobe removed from CA - CARDIOVASCULAR Hx Cardio Disorders: Yes Hx Abnormal EKG: Yes - NEURO Hx Neuro Disorders: Yes Hx Seizures: No - GI Hx GI Disorders: Yes Hx Reflux: Yes - Hx Genitourinary Disorders: No - ENDOCRINE Hx Endocrine Disorders: No - MUSCULOSKELETAL Hx Musculoskeletal Disorders: Yes Hx Arthritis: Yes - PSYCH Hx Psych Problems: No - HEMATOLOGY/ONCOLOGY Hx Hematology/Oncology Disorders: Yes Hx Cancer: Yes (Lung) Hx Chemotherapy: No Hx Radiation Therapy: No Family Medical History Any Significant Family History?: Yes Hx Cancer: Mother, Brother/Sister Hx Heart Disease: Father Hx HTN: Father H&P Meds/Allergies - Allergies Allergies: Allergies Allergy/AdvReac Type Severity Reaction Status Date / Time dipyridamole Allergy Intermediate ABDOMINAL Verified 01/11/18 18:04 [From Persantine] PAIN - Active Medications Active Medications: Current Medications Aspirin (Ecotrin (Ec)) 81 mg PO 0600 [facility] Last Admin: 02/03/18 05:35 Dose: 81 mg Atorvastatin Calcium (Lipitor) 5 mg PO 0600 [facility] Last Admin: 02/03/18 05:36 Dose: 5 mg Calcium/Vitamin D (Calcium 500+D Tablet) 1 tab PO BIDWM [facility] Last Admin: 02/03/18 08:07 Dose: 1 tab Carbidopa/Levodopa (Sinemet) 1 each PO 0600,1200,1999 [facility] Last Admin: 02/03/18 12:12 Dose: 1 each Clopidogrel Bisulfate (Plavix) 75 mg PO 0600 [facility] Last Admin: 02/03/18 05:36 Dose: 75 mg Ferrous Sulfate (Iron) 325 mg PO WMEALS [facility] Last Admin: 02/03/18 12:12 Dose: 325 mg Fluticasone Propionate (Flonase) 2 spray NA 06 [facility] Last Admin: 02/03/18 05:39 Dose: 2 spray Gabapentin (Neurontin) 300 mg PO 0600,1200 [facility] Last Admin: 02/03/18 12:12 Dose: 300 mg Gabapentin (Neurontin) 600 mg PO 1999 [facility] Last Admin: 02/02/18 20:25 Dose: 600 mg Linezolid (Linezolid) 600 mg PO BID [facility] Last Admin: 02/03/18 12:11 Dose: 600 mg Lisinopril (Zestril) 2.5 mg PO 0600 [facility] Last Admin: 02/03/18 05:37 Dose: 2.5 mg Loperamide HCl (Immodium) 2 mg PO Q4H PRN PRN Reason: Diarrhea Last Admin: 02/03/18 12:12 Dose: 2 mg Nystatin () 5 ml PO QID [facility] Last Admin: 02/03/18 14:14 Dose: Not Given Pantoprazole Sodium (Protonix) 40 mg PO 0600,1999 [facility] Last Admin: 02/03/18 05:37 Dose: 40 mg Sotalol HCl (Betapace) 80 mg PO 0600,1999 [facility] Last Admin: 02/03/18 05:36 Dose: 80 mg Tamsulosin HCl (Flomax) 0.4 mg PO 0600 [facility] Last Admin: 02/03/18 12:10 Dose: 0.4 mg Topiramate (Topiramate) 25 mg PO 0600,1200,1999 [facility] Last Admin: 02/03/18 12:12 Dose: 25 mg Physical Exam - Vital Signs Vital Signs: Vital Signs - Last 24 Hrs Temp Pulse Pulse Resp BP BP Pulse Ox 02/03/18 13:00 97.6 F 90 18 76/52 95 02/03/18 10:24 97.6 F 116/68 02/03/18 05:40 70 18 94 L 02/02/18 20:00 97.6 F 72 18 116/68 95 02/02/18 17:41 96.8 F L 68 20 103/80 95 - General General Appearance: Alert, Oriented x3, Cooperative, No acute distress - Head Head exam: Normal inspection - Eye Eye exam: Normal appearance, PERRL Pupils: Normal accommodation - ENT ENT exam: Normal exam, Mucous membranes moist, Normal external ear exam, Normal orophraynx, TM's normal bilaterally Ear exam: Normal external inspection. negative: External canal tenderness Nasal Exam: Normal inspection. negative: Discharge, Sinus tenderness Mouth exam: Normal external inspection, Tongue normal Teeth exam: Normal inspection. negative: Dental caries Throat exam: Normal inspection. negative: Tonsillar erythema, Tonsillar exudate - Neck Neck exam: Normal inspection, Full ROM. negative: Tenderness - Respiratory Respiratory exam: Decreased breath sounds. negative: Accessory muscle use, Rhonchi, Wheezes - Cardiovascular Cardiovascular Exam: Regular rate, Normal rhythm, Normal heart sounds Peripheral Pulses: 2+: Radial (R), Radial (L), Dorsalis Pedis (R), Dorsalis Pedis (L) - GI/Abdominal GI/Abdominal exam: Soft, Normal bowel sounds. negative: Tenderness - Rectal Rectal exam: Deferred - exam: Deferred - Back Back exam: Reports: Normal inspection, Full ROM. Denies: Muscle spasm, Rash noted, Tenderness - Neurological Neurological exam: Alert, Normal gait, Oriented X3, Reflexes normal - Psychiatric Psychiatric exam: Normal affect, Normal mood - Skin Skin exam: Dry, Intact, Normal color, Warm H&P Results - Labs Result Diagrams: 02/03/18 17:36 02/03/18 17:36 Discharge Potential - Discharge Needs Community Services Used Prior to Admission: Transportation Patient Discharge Plan Description: Return Home Community Services Needed at Discharge: Transportation Plan - Swing Bed Certification Initial Certification Due: 02/02/18 14 Day Re-Cert Due: 02/16/18 44 Day Re-Cert Due: 03/18/18 74 Day Re-Cert Due: 04/17/18 - Detailed Diagnosis and Plan (1) Physical deconditioning Current Visit: No Status: Acute Base Code: R53.81 - OTHER MALAISE Comment : 02/03/18: Pt. is deconditioned following hospitalization for bilateral pneumonia secondary to MRSA infection. Pt. was recently SB (01/08-01/15) for similar course. PT/OT evaluation completed this morning, plan to continue daily M-F, will work on strength and physical functioning. (2) Pneumonia of both lungs due to methicillin resistant Staphylococcus aureus ( MRSA) Current Visit: Yes Status: Acute Base Code: J15.212 - PNEUMONIA DUE TO METHICILLIN RESISTANT STAPHYLOCOCCUS AUREUS Comment: 02/03/18: Pt. daignosed with multilobular PNA/HCAP from MRSA. (positive culture on 01/20/18) Placed in droplet precautions. Treating with linezolid 600mg bid. f/u CXR was recommended 3-4 weeks post-hospital discharge. (3) Status post non-ST elevation myocardial infarction (NSTEMI) Current Visit: Yes Status: Acute Base Code: I25.2 - OLD MYOCARDIAL INFARCTION Comment: 02/03/18: NSTEMI on 01/20/18, elevated trops, and s/p stent to LAD. Hx a fib. (4) Chronic respiratory failure with hypoxia Current Visit: Yes Status: Acute Base Code: J96.11 - CHRONIC RESPIRATORY FAILURE WITH HYPOXIA Comment: 02/03/18: Hx COPD, L partial lobectomy, pt. on on 4L O2 at home and currently. Will continue to monitor VS to maintain sats > 92% (5) Full code status Current Visit: No Status: Acute Base Code: Z78.9 - OTHER SPECIFIED HEALTH STATUS Comment: 02/03/18: Pt. is full code status
--- NOTE | 2018-02-03 16:06 | Swing Bed Certification/Recert ---
Initial Certification Due: 02/02/18 14 Day Re-Cert Due: 02/16/18 44 Day Re-Cert Due: 03/18/18 74 Day Re-Cert Due: 04/17/18 CERTIFICATION 3 CERTIFICATION OF PATIENT ADMISSION Required at time of admission. Due: 02/02/18 I certify that SNF services are required to be given on an inpatient basis because of the above named patient's need for intermediate care on a continuing basis for the condition(s) for which he/she was receiving inpatient hospital services prior to his/her transfer to the SNF. The patient's current needs for skilled care includes: [IV antibiotics, PT/OT] Corinne Alba, N.P. 02/03/18
[2018-02-03 17:40] LABS: HEMATOCRIT 39.7 % (42.0-52.0); HEMOGLOBIN 11.8 gm/dl (14.0-18.0); MEAN CELL VOLUME 91.3 fl (81-97); MEAN CORPUSCULAR HEMOGLOBIN 27.1 pg (27-33); MEAN CORPUSCULAR HGB CONC 29.7 g/dl (32-36); MEAN PLATELET VOLUME 8.9 fl (7.4-10.4); PLATELET COUNT 457 K/uL (130-400); RED BLOOD COUNT 4.35 M/uL (4.40-5.70); RED CELL DISTRIBUTION WIDTH 14.9 % (11.5-14.5); WHITE BLOOD COUNT W/O DIFF 11.7 K/uL (4.2-12.2)
[2018-02-03 17:48] LABS: PLATELET ESTIMATE NORMAL (NORMAL)
[2018-02-03 17:58] LABS: ALB/GLOB RATIO 1.1 (1.1-1.8); ALKALINE PHOSPHATASE 82 U/L (40-129); ALT/SGPT 17 U/L (<41); AST/SGOT 16 U/L (10.0-50.0); BLOOD UREA NITROGEN 15 mg/dL (8-23); CREATININE 1.1 mg/dL (0.7-1.2); EST GLOMERULAR FILTRATION RATE > 60 mL/min; GLUCOSE,RANDOM 159 mg/dL (74-109); TOTAL PROTEIN 5.8 g/dL (6.6-8.7)
[2018-02-04] MEDS: UMECLIDINIUM BROMIDE (INCRUSE) 62.5MCG IH SCH (05:10)
[2018-02-04] MEDS: BREO (FLUTICASONE/VILANTEROL) 200MCG/25MCG INHALER INH SCH (05:10)
[2018-02-04] MEDS: SOTALOL HCL 80 MG TABLET PO SCH ×2 (06:03→19:54)
[2018-02-04] MEDS: FLUTICASONE PROPIONATE 50MCG NASAL 16 GM BTL SCH (06:03)
[2018-02-04] MEDS: TAMSULOSIN HCL 0.4 MG CAP.ER.24H PO SCH (06:03)
[2018-02-04] MEDS: ASPIRIN 81 MG TABEC PO SCH (06:03)
[2018-02-04] MEDS: CLOPIDOGREL 75MG TABLET PO SCH (06:04)
[2018-02-04] MEDS: GABAPENTIN 300 MG CAPSULE PO SCH ×3 (06:04→19:55)
[2018-02-04] MEDS: ATORVASTATIN 20 MG TABLET PO SCH (06:04)
[2018-02-04] MEDS: PANTOPRAZOLE SODIUM 40 MG TABLET PO SCH ×2 (06:04→19:55)
[2018-02-04] MEDS: TOPIRAMATE 25MG TABLET PO SCH ×3 (06:05→19:54)
[2018-02-04] MEDS: CARBIDOPA/LEVODOPA 25MG/100MG TABLET PO SCH ×3 (06:05→19:55)
[2018-02-04] MEDS: LISINOPRIL 5 MG TABLET PO SCH (06:05)
[2018-02-04] MEDS: FERROUS SULFATE 325 MG TAB PO SCH ×3 (08:44→17:21)
[2018-02-04] MEDS: CALCIUM CARB/VITAMIN D 500MG/200IU PO SCH ×2 (08:44→17:21)
--- NOTE | 2018-02-04 09:25 | Occupational Therapy Tx Note ---
Occupational Therapy Tx Note - Treatment Note Tolerated: Fair Total Time Spent With Patient: 35 (ADL) Occupational Therapy Treatment Note: Detail (S: Pt resting in bed, present. O: Oxygen turned up to 6 liters. Supine to sit Indly and amb to bathroom and completed toileting in standing Indly. Pt doffed gown, underwear and slippers Indly in sitting and standing. Pt completed showering in sitting with hand held shower Indly. Pt required multiple rest breaks for pursed lip breathing. Pt dried self Indly. Pt completed total body dressing in sitting and standing with rest breaks as needed. Pt amb back to chair Indly and left up with present. A: Ind with showering and dressing although significant shortness of breath continues.) Occupational Therapy Problem List: Detail (1. Decreased endurance needed for safe and Ind ADLs and functional mobility. 2. Need to assess showering safety. ) Occupational Therapy Goals: 1. Pt will be safe and Ind with showering in sitting while using 4-6 liters of oxygen and modified breathing techniques. 2. Pt will demonstrate improved endurance and Ind with modified breathing techniques to allow safe return home. Prognosis: Good Occupational Therapy Plan: OT 2-4 days per week to address self cares, functional mobility and endurance to allow safe and Ind return home.
[2018-02-04] MEDS: NYSTATIN 100,000 UNITS/ML 5ML CUP PO SCH ×2 (09:48→14:54)
[2018-02-04] MEDS: BIFIDOBACTERIUM INFANTIS 4 MG CAPSULE PO SCH (09:49)
[2018-02-04] MEDS: LINEZOLID 600 MG TABLET PO SCH ×2 (09:49→21:52)
--- NOTE | 2018-02-04 13:58 | Physical Therapy Tx Note ---
Physical Therapy Tx Note - Treatment Note Tolerated: Good Total Time Spent With Patient: 30 Physical Therapy Tx Note: Detail (The patient was sleeping in room when PT arrived. The patient's resting O2 sat was 87 but increased to 92 with pursed lip breathing techniques. The patient ambulated with 6L of O2 with 4 wheeled walker with mask a distance 5 feet into goyal and patient became shaky and asked to sit on seat of walker. O2 sat was 82. Patient was taken back to room and mask was taken off. The patient's O2 sat level returned to 90's. The patient then completed the following exercises with 6 L of O2: knee extension, hip marching, heel toe raises, hip adductor squeezes all x 10 reps and UE bicep curls x 10 reps. O2 sat level was monitored and remained generally in the 92 - 88 level. The patient tolerated session well. Wall O2 was leaking nursing staff was notified.) Physical Therapy Problem List: Detail (1) Shortness of breathe at rest 2) Decreased LE strength 3) Decreased ability to complete prolonged physical activity 4) Assistance with transfers) Physical Therapy Goals: 1) Evaluate bed mobility and ambulation. 2) Evaluate the patient's balance using an objective balance scale. 3) Increase LE strength 1/3 muscle grade to improve stability of gait. 4) The patient will ambulate with assistive device distances of up to 100 feet with 6 L of O2 indpendently. 5) The patient will be independent with all bed mobility and transfers. Physical Therapy Plan: PT 1 to 2 times a day for LE strengthening and muscular endurance exercises, gait training, mobility training and balance exercises.
[2018-02-04 16:27] LABS: CRYPTOSPORIDIUM PARVUM ANTIGEN NOT DETECTED (NOT DETECT); GIARDIA LAMBLIA ANTIGEN NOT DETECTED (NOT DETECT); ROTOVIRUS NOT DETECTED (NOT DETECT)
[2018-02-04 17:07] LABS: MOLECULAR C DIFF TOXIN SCREEN DETECTED (NOT DETECT)
--- NOTE | 2018-02-04 17:48 | Physician Progress Note ---
Subjective - Date Date of Progress Note: 02/04/18 - Admitting Diagnosis Diagnosis: mrsa, bilateral pneumonia, c. diff - Subjective Events since last encounter: Pt. has had frequent liquid stools since admission, no relief from immodium administered yesterday. Stool cultures ordered this morning and positive for c diff- oral vanco ordered- 125mg q6h for 10 days. Nursing Care Plan Problem List Activity Intolerance (Swing Bed) Start: 02/02/18 17: 26 Freq: Status: Active Protocol: Created 02/02/18 17:26 [facility] (Rec: 02/02/18 17:26 KM [id number]) Altered Thought Process (Fall Risk) Start: 02/02/18 17: 38 Freq: Status: Inactive Protocol: Created 02/02/18 17:38 [facility] (Rec: 02/02/18 17:38 KM [id number]) Edit Status 02/04/18 00:20 LPR (Rec: 02/04/18 00:20 LPR [id number]) Active=>Inactive Altered Thought Process (Fall Risk) Start: 02/02/18 17: 39 Freq: Status: Active Protocol: Created 02/02/18 17:39 [facility] (Rec: 02/02/18 17:39 KM [id number]) Impaired Mobility (Fall Risk) Start: 02/02/18 17: 38 Freq: Status: Inactive Protocol: Created 02/02/18 17:38 [facility] (Rec: 02/02/18 17:38 KM [id number]) Edit Status 02/04/18 00:23 LPR (Rec: 02/04/18 00:23 LPR [id number]) Active=>Inactive Impaired Mobility (Fall Risk) Start: 02/02/18 17: 39 Freq: Status: Active Protocol: Created 02/02/18 17:39 [facility] (Rec: 02/02/18 17:39 KM [id number]) Ineffective Airway Clearance Start: 02/02/18 17: 26 Freq: Status: Active Protocol: Created 02/02/18 17:26 [facility] (Rec: 02/02/18 17:26 KM [id number]) Ineffective Breathing Pattern Start: 02/02/18 17: 26 Freq: Status: Active Protocol: Created 02/02/18 17:26 [facility] (Rec: 02/02/18 17:26 [facility] [id number]) Infection Start: 02/02/18 17: 26 Freq: Status: Active Protocol: Created 02/02/18 17:26 KM (Rec: 02/02/18 17:26 [facility] [id number]) Knowledge Deficit (Swing Bed) Start: 02/02/18 17: 26 Freq: Status: Active Protocol: Created 02/02/18 17:26 KM (Rec: 02/02/18 17:26 [facility] [id number]) Pain (Swing Bed) Start: 02/02/18 17: 26 Freq: Status: Active Protocol: Created 02/02/18 17:26 KM (Rec: 02/02/18 17:26 [facility] [id number]) Risk for Injury (Fall Risk) Start: 02/02/18 17: 38 Freq: Status: Inactive Protocol: Created 02/02/18 17:38 [facility] (Rec: 02/02/18 17:38 [facility] [id number]) Edit Status 02/04/18 00:22 LPR (Rec: 02/04/18 00:22 LPR [id number]) Active=>Inactive Risk for Injury (Fall Risk) Start: 02/02/18 17: 39 Freq: Status: Active Protocol: Created 02/02/18 17:39 KM (Rec: 02/02/18 17:39 [facility] [id number]) General - Cognitive Patterns Speech: Normal - Communication Select best description of speech pattern: Clear Speech Ability to express ideas and wants: Understood Understanding verbal content: Usually Understands - Mood and Behavior Patterns Appearance: Well Groomed Mood: Normal Attitude: Cooperative Motor Activity: Calm Affect: Appropriate - Physical Functioning Activity Level: Up as tolerated Turning: Self ad marcell ROM Ability: Moves all extremities Assistive Devices: 2 Wheel Walker Ambulation Ability: Needs Assist Bed Mobility: Independent Transfer Ability: Independent Bathing Ability: Needs Assist Personal Hygiene: Independent Dressing Ability: Needs Assist Eating (Feeding) Ability: Independent Toileting Ability: Needs Assist Administer Own Medication: Needs Assist - Continence Bowel Pattern: Diarrhea Bladder Pattern: Normal Meds/Allergies - Allergies Allergies Allergy/AdvReac Type Severity Reaction Status Date / Time dipyridamole Allergy Intermediate ABDOMINAL Verified 01/11/18 18:04 [From Persantine] PAIN - Active Medications Current Medications Aspirin (Ecotrin (Ec)) 81 mg PO 0600 [facility] Last Admin: 02/04/18 06:03 Dose: 81 mg Atorvastatin Calcium (Lipitor) 5 mg PO 0600 [facility] Last Admin: 02/04/18 06:04 Dose: 5 mg Calcium/Vitamin D (Calcium 500+D Tablet) 1 tab PO BIDWM [facility] Last Admin: 02/04/18 17:21 Dose: 1 tab Carbidopa/Levodopa (Sinemet) 1 each PO 0600,1200,1999 [facility] Last Admin: 02/04/18 11:39 Dose: 1 each Clopidogrel Bisulfate (Plavix) 75 mg PO 0600 [facility] Last Admin: 02/04/18 06:04 Dose: 75 mg Ferrous Sulfate (Iron) 325 mg PO WMEALS [facility] Last Admin: 02/04/18 17:21 Dose: 325 mg Fluticasone Propionate (Flonase) 2 spray NA 599 [facility] Last Admin: 02/04/18 06:03 Dose: 2 spray Gabapentin (Neurontin) 300 mg PO 0600,1199 [facility] Last Admin: 02/04/18 11:39 Dose: 300 mg Gabapentin (Neurontin) 600 mg PO 1999 [facility] Last Admin: 02/03/18 20:20 Dose: 600 mg Linezolid (Linezolid) 600 mg PO BID [facility] Last Admin: 02/04/18 09:49 Dose: 600 mg Lisinopril (Zestril) 2.5 mg PO 0600 [facility] Last Admin: 02/04/18 06:05 Dose: 2.5 mg Pantoprazole Sodium (Protonix) 40 mg PO 0600,1999 [facility] Last Admin: 02/04/18 06:04 Dose: 40 mg Patient Own Med: (Midodrine 2.5 Mg) 1 each PO 0600,1200,1999 [facility] Sotalol HCl (Betapace) 80 mg PO 0600,1999 [facility] Last Admin: 02/04/18 06:03 Dose: 80 mg Tamsulosin HCl (Flomax) 0.4 mg PO 0600 [facility] Last Admin: 02/04/18 06:03 Dose: 0.4 mg Topiramate (Topiramate) 25 mg PO 0600,1200,1999 [facility] Last Admin: 02/04/18 11:39 Dose: 25 mg Vancomycin HCl (Vanco) 125 mg PO Q6H [facility] Stop: 02/14/18 17:46 Objective - Vital Signs Vital Signs: Vital Signs - Last 24 Hrs Temp Pulse Pulse Resp BP BP Pulse Ox 02/04/18 08:59 98.1 F 80 18 87/46 95 02/04/18 05:10 78 20 91 L 02/03/18 20:00 98.2 F 88 17 111/69 97 - General General Appearance: Alert, Oriented x3, Cooperative, No acute distress - Head Head exam: Normal inspection - Eye Eye exam: Normal appearance, PERRL Pupils: Normal accommodation - ENT ENT exam: Normal exam, Mucous membranes moist, Normal external ear exam, Normal orophraynx, TM's normal bilaterally Ear exam: Normal external inspection. negative: External canal tenderness Nasal Exam: Normal inspection. negative: Discharge, Sinus tenderness Mouth exam: Normal external inspection, Tongue normal Teeth exam: Normal inspection. negative: Dental caries Throat exam: Normal inspection. negative: Tonsillar erythema, Tonsillar exudate - Neck Neck exam: Normal inspection, Full ROM. negative: Tenderness - Respiratory Respiratory exam: Decreased breath sounds. negative: Accessory muscle use, Rhonchi, Wheezes - Cardiovascular Cardiovascular Exam: Regular rate, Normal rhythm, Normal heart sounds Peripheral Pulses: 2+: Radial (R), Radial (L), Dorsalis Pedis (R), Dorsalis Pedis (L) - GI/Abdominal GI/Abdominal exam: Soft, Normal bowel sounds. negative: Tenderness - Rectal Rectal exam: Deferred - exam: Deferred - Back Back exam: Reports: Normal inspection, Full ROM. Denies: Muscle spasm, Rash noted, Tenderness - Neurological Neurological exam: Alert, Normal gait, Oriented X3, Reflexes normal - Psychiatric Psychiatric exam: Normal affect, Normal mood - Skin Skin exam: Dry, Intact, Normal color, Warm H&P Results - Labs Result Diagrams: 02/03/18 17:36 02/03/18 17:36 Labs Last 24 Hours: Laboratory Results - last 24 hr 02/03/18 02/03/18 02/04/18 17:36 17:36 16:00 WBC 11.7 RBC 4.35 L Hgb 11.8 L Hct 39.7 L MCV 91.3 MCH 27.1 MCHC 29.7 L RDW 14.9 H Plt Count 457 H MPV 8.9 Neutrophils % 90.0 H Band Neutrophils % 4.0 Eosinophils % Not Reportable Basophils % Not Reportable Lymphocytes 4.0 L Monocytes 2.0 Platelet Estimate Normal RBC Morphology Normal Sodium 143 Potassium 5.0 H Chloride 101 Carbon Dioxide 32.0 H Anion Gap 10.0 BUN 15 Creatinine 1.1 Estimated GFR > 60 Random Glucose 159 H Calcium 9.4 Total Bilirubin 0.40 AST 16 ALT 17 Alkaline Phosphatase 82 Total Protein 5.8 L Albumin 3.0 L Globulin 2.8 Albumin/Globulin Ratio 1.1 Stool Occult Blood Stool for White Cells No wbc's observed Rotavirus Antigen C. difficile Ag & Toxin Cryptosporid parvum Ag Giardia lamblia Ag 02/04/18 02/04/18 16:00 16:00 WBC RBC Hgb Hct MCV MCH MCHC RDW Plt Count MPV Neutrophils % Band Neutrophils % Eosinophils % Basophils % Lymphocytes Monocytes Platelet Estimate RBC Morphology Sodium Potassium Chloride Carbon Dioxide Anion Gap BUN Creatinine Estimated GFR Random Glucose Calcium Total Bilirubin AST ALT Alkaline Phosphatase Total Protein Albumin Globulin Albumin/Globulin Ratio Stool Occult Blood Negative Stool for White Cells Rotavirus Antigen Not detected C. difficile Ag & Toxin Detected H Cryptosporid parvum Ag Not detected Giardia lamblia Ag Not detected Discharge Potential - Discharge Needs Community Services Used Prior to Admission: Transportation Patient Discharge Plan Description: Return Home Community Services Needed at Discharge: Transportation Plan - Swing Bed Certification Initial Certification Due: 02/02/18 14 Day Re-Cert Due: 02/16/18 44 Day Re-Cert Due: 03/18/18 74 Day Re-Cert Due: 04/17/18 - Detailed Diagnosis and Plan (1) Physical deconditioning Current Visit: No Status: Acute Base Code: R53.81 - OTHER MALAISE Comment : 02/03/18: Pt. is deconditioned following hospitalization for bilateral pneumonia secondary to MRSA infection. Pt. was recently SB (01/08-01/15) for similar course. PT/OT evaluation completed this morning, plan to continue daily M-F, will work on strength and physical functioning. (2) Pneumonia of both lungs due to methicillin resistant Staphylococcus aureus ( MRSA) Current Visit: Yes Status: Acute Base Code: J15.212 - PNEUMONIA DUE TO METHICILLIN RESISTANT STAPHYLOCOCCUS AUREUS Comment: 02/03/18: Pt. daignosed with multilobular PNA/HCAP from MRSA. (positive culture on 01/20/18) Placed in droplet precautions. Treating with linezolid 600mg bid. f/u CXR was recommended 3-4 weeks post-hospital discharge. (3) Status post non-ST elevation myocardial infarction (NSTEMI) Current Visit: Yes Status: Acute Base Code: I25.2 - OLD MYOCARDIAL INFARCTION Comment: 02/03/18: NSTEMI on 01/20/18, elevated trops, and s/p stent to LAD. Hx a fib. (4) C. difficile diarrhea Current Visit: Yes Status: Acute Base Code: A04.72 - ENTEROCOLITIS D/T CLOSTRIDIUM DIFFICILE, NOT SPCF RECUR Comment: 02/04/18 4906: Positive c. diff from stool culture obtained this morning. PO vanco 125mg q6h for 10 days ordered. Will continue to encourage fluids and monitor vital signs. (5) Chronic respiratory failure with hypoxia Current Visit: Yes Status: Acute Base Code: J96.11 - CHRONIC RESPIRATORY FAILURE WITH HYPOXIA Comment: 02/03/18: Hx COPD, L partial lobectomy, pt. on on 4L O2 at home and currently. Will continue to monitor VS to maintain sats > 92% (6) Full code status Current Visit: No Status: Acute Base Code: Z78.9 - OTHER SPECIFIED HEALTH STATUS Comment: 02/03/18: Pt. is full code status
[2018-02-04] MEDS: MIDODRINE 2.5 MG PO SCH (20:03)
[2018-02-04] MEDS: VANCOMYCIN HCL 1 GM VIAL PO SCH (20:03)
[2018-02-05] MEDS: VANCOMYCIN HCL 1 GM VIAL PO SCH ×6 (00:19→23:41)
[2018-02-05] MEDS: SOTALOL HCL 80 MG TABLET PO SCH ×2 (06:07→20:03)
[2018-02-05] MEDS: ASPIRIN 81 MG TABEC PO SCH (06:07)
[2018-02-05] MEDS: FLUTICASONE PROPIONATE 50MCG NASAL 16 GM BTL SCH (06:08)
[2018-02-05] MEDS: TAMSULOSIN HCL 0.4 MG CAP.ER.24H PO SCH (06:08)
[2018-02-05] MEDS: ATORVASTATIN 20 MG TABLET PO SCH (06:09)
[2018-02-05] MEDS: GABAPENTIN 300 MG CAPSULE PO SCH ×3 (06:09→20:04)
[2018-02-05] MEDS: PANTOPRAZOLE SODIUM 40 MG TABLET PO SCH ×2 (06:10→20:04)
[2018-02-05] MEDS: CLOPIDOGREL 75MG TABLET PO SCH (06:10)
[2018-02-05] MEDS: CARBIDOPA/LEVODOPA 25MG/100MG TABLET PO SCH ×3 (06:10→20:04)
[2018-02-05] MEDS: TOPIRAMATE 25MG TABLET PO SCH ×3 (06:10→20:05)
[2018-02-05] MEDS: MIDODRINE 2.5 MG PO SCH ×3 (06:11→20:03)
[2018-02-05] MEDS: LISINOPRIL 5 MG TABLET PO SCH (06:11)
[2018-02-05] MEDS: BREO (FLUTICASONE/VILANTEROL) 200MCG/25MCG INHALER INH SCH (07:18)
[2018-02-05] MEDS: UMECLIDINIUM BROMIDE (INCRUSE) 62.5MCG IH SCH (07:18)
[2018-02-05] MEDS: CALCIUM CARB/VITAMIN D 500MG/200IU PO SCH ×2 (08:16→18:09)
[2018-02-05] MEDS: FERROUS SULFATE 325 MG TAB PO SCH ×3 (08:16→18:09)
[2018-02-05] MEDS: BIFIDOBACTERIUM INFANTIS 4 MG CAPSULE PO SCH (10:17)
[2018-02-05] MEDS: LINEZOLID 600 MG TABLET PO SCH ×2 (10:18→22:03)
--- NOTE | 2018-02-05 12:32 | Physical Therapy Tx Note ---
Physical Therapy Tx Note - Treatment Note Tolerated: Good Total Time Spent With Patient: 30 Physical Therapy Tx Note: Detail (Patient states no new complaints. Patient transferred sit to and from stand x2 SBA x1. Patient reports complaints of dizziness upon standing, dizziness subsided after sitting for a couple minutes. Patient ambulated 10 feet, 15 feet, and 10 feet with four wheeled walker SBA x1 on 6L oxygen. Patient performed the following exercises seated in chair x10- 15 reps each: heel raises, toe raises, marching, isometric hip abduction, isometric hip adduction, isometric hamstring sets, and scapular squeezes. Patient required seated rest breaks with ambulation due to fatigue and shortness of breath. Patient displays decreased strength and endurance with exercises. Patient reports fatigued after treatment. Patient was left seated in chair with call light within reach.) Physical Therapy Problem List: Detail (1) Shortness of breathe at rest 2) Decreased LE strength 3) Decreased ability to complete prolonged physical activity 4) Assistance with transfers) Physical Therapy Goals: 1) Evaluate bed mobility and ambulation. 2) Evaluate the patient's balance using an objective balance scale. 3) Increase LE strength 1/3 muscle grade to improve stability of gait. 4) The patient will ambulate with assistive device distances of up to 100 feet with 6 L of O2 indpendently. 5) The patient will be independent with all bed mobility and transfers. Prognosis: Good Physical Therapy Plan: PT 1 to 2 times a day for LE strengthening and muscular endurance exercises, gait training, mobility training and balance exercises.
--- NOTE | 2018-02-05 14:21 | Physical Therapy Tx Note ---
Physical Therapy Tx Note - Treatment Note Tolerated: Good Total Time Spent With Patient: 20 Physical Therapy Tx Note: Detail (Patient states no new complaints this afternoon. Patient performed the following exercises seated in chair on 6L oxygen x10 reps each: bicep curls, shoulder flexion, shoulder abduction, PNF D1 and D2 diagonals, isometric triceps, shoulder internal rotation isometric, and shoulder circles. Patient tolerated treatment well. Patient required rest breaks due to shortness of breath and fatigue. Patient reports tired after treatment. Patient was left seated in chair with call light within reach.) Physical Therapy Problem List: Detail (1) Shortness of breathe at rest 2) Decreased LE strength 3) Decreased ability to complete prolonged physical activity 4) Assistance with transfers) Physical Therapy Goals: 1) Evaluate bed mobility and ambulation. 2) Evaluate the patient's balance using an objective balance scale. 3) Increase LE strength 1/3 muscle grade to improve stability of gait. 4) The patient will ambulate with assistive device distances of up to 100 feet with 6 L of O2 indpendently. 5) The patient will be independent with all bed mobility and transfers. Prognosis: Good Physical Therapy Plan: PT 1 to 2 times a day for LE strengthening and muscular endurance exercises, gait training, mobility training and balance exercises.
--- NOTE | 2018-02-05 17:21 | Swallow Evaluation ---
Swallow Evaluation - General Patient Information Date of Assessment: 02/05/18 Referral Date: 02/04/18 Date of Onset: 02/04/18 Admitting Diagnosis: MRSA, Bilateral Pneumonia, Oropharyngeal dysphagia Medical History: Pt admitted to [facility] on 01/20/18 secondary to deconditioning and exacerbation of COPD. MRSA identified. Due to complaints of swallowing trouble a MBSS was completed which revealed delayed oropharyngeal phases of the swallow including decreased base of tongue movement and reduced hyolaryngeal elevation. Pt utilizes a high flow oxygen and has a hx significant for GERD and esophogeal dilation. Current Feeding Status: All oral Cognitive Status: WFL Oral Motor Assessment - Lips Lips at Rest: Normal Function Lip Retraction: Normal Function Lip Protrusion: Normal Function - Tongue Tongue at Rest: Normal Function Tongue Protrusion: Normal Function Tongue Elevation: Abnormal Function Tongue Lateralization: Abnormal Function - Velum Velum at Rest: Normal Function Velum Elevation: Normal Function - Additional Information Oral Sensitivity: Reduced Volitional Cough/Throat Clearing: Not effective at reducing oropharhyngeal residue via MBSS. Swallow Assessment - Oral Preparatory Phase Phase - Liquid: Abnormal Function Phase - Puree: Abnormal Function Phase - Solid: Abnormal Function (Reduced base of tongue movement as reported on MBSS.) - Oral Phase Phase - Liquid: Normal Function Phase - Puree: Normal Function Phase - Solid: Abnormal Function (Reduced mastication skills.) - Pharyngeal Phase Phase - Liquid: Abnormal Function Phase - Puree: Normal Function (Patient benefits from second swallow when eating /drinking to clear residue in oropharyngeal phases of the swallow.) Phase - Solid: Abnormal Function - Additional Information Swallow Assessment Comment: Patient has weakness of oral and pharyngeal phases of swallow. Patient was educated regarding safe swallow strategies including slow rates, small bites, dry swallow technique after intake. Avoiding straws with liquids and adhering to a generally soft diet without mixed consistencies ( Dysphagia II primarily). Until strength of swallow improves and diet can be advanced safely. Per MBSS completed at [facility] the patient experiences significant residue during eating/drinking and occasionally has penetration which is significant given his respiratory status. Plan for Treatment - Diagnosis/Clinical Impression Diagnosis: Oropharyngeal phase dysphagia. Clinical Impression: Patient presents with mild to moderate oropharygeal phase dysphagia as identified on MBSS completed at [facility]. Patient is very hard of hearing and most information presented was completed via written format with head-nod as confirmation of understanding. Patient present during the evaluation and patient call light was in reach the entirety of the visit. Patient was introduced to restrictions placed after MBSS including modified behavior strategies and modified diet consistency which are noted elsewhere in this report. Patient was also introduced to strengthening exercises to develop a home exercise program for swallowing. - Consistency Modification Consistency Modification: Soft Liquid Modification: Regular Medication Modification: Crushed in Puree - Behavior Modification Behavior Modification: Small Sips, Position upright for all oral intake Modification Comment: No straws. - Additional Plan Details Plan for Treatment: Improve swallowing strength, reduce s/s of dysphagia and advance diet as tolerated. To be seen 2-3x a week for the next week or until discharge whichever comes first. Videofluroscopic Swallow Study Ordered: No Diagnosis/Recommendation Discussed With: Patient, Family Goals for Treatment - Short Term Goals/Status: Goal #1: 1. Patient will complete a home exercise program (HEP) 3 exercises independ Current Status: Patient unaware of strengthening exercises. Goal #2: 2. Patient will tolerate advanced diet without s/s of dysphagia. Current Status: Generally soft cohesive foods (Dysphagia II foods). No straws- thin. - Detention Goals/Status: Goal #1: Patient will improve safety with PO intake. No overt s/s of dysphagia. Current Status: Patient requires modified diet consistency and behaviors.
[2018-02-06] MEDS: VANCOMYCIN HCL 1 GM VIAL PO SCH ×3 (06:05→17:44)
[2018-02-06] MEDS: UMECLIDINIUM BROMIDE (INCRUSE) 62.5MCG IH SCH (06:10)
[2018-02-06] MEDS: BREO (FLUTICASONE/VILANTEROL) 200MCG/25MCG INHALER INH SCH (06:10)
[2018-02-06] MEDS: FLUTICASONE PROPIONATE 50MCG NASAL 16 GM BTL SCH (06:11)
[2018-02-06] MEDS: ASPIRIN 81 MG TABEC PO SCH (06:11)
[2018-02-06] MEDS: TAMSULOSIN HCL 0.4 MG CAP.ER.24H PO SCH (06:11)
[2018-02-06] MEDS: SOTALOL HCL 80 MG TABLET PO SCH ×2 (06:11→20:16)
[2018-02-06] MEDS: MIDODRINE 2.5 MG PO SCH ×3 (06:12→20:15)
[2018-02-06] MEDS: GABAPENTIN 300 MG CAPSULE PO SCH ×3 (06:12→20:16)
[2018-02-06] MEDS: CLOPIDOGREL 75MG TABLET PO SCH (06:12)
[2018-02-06] MEDS: CARBIDOPA/LEVODOPA 25MG/100MG TABLET PO SCH ×3 (06:12→20:16)
[2018-02-06] MEDS: ATORVASTATIN 20 MG TABLET PO SCH (06:12)
[2018-02-06] MEDS: PANTOPRAZOLE SODIUM 40 MG TABLET PO SCH ×2 (06:12→20:16)
[2018-02-06] MEDS: TOPIRAMATE 25MG TABLET PO SCH ×3 (06:13→20:16)
[2018-02-06] MEDS: LISINOPRIL 5 MG TABLET PO SCH (06:13)
[2018-02-06] MEDS: CALCIUM CARB/VITAMIN D 500MG/200IU PO SCH ×2 (08:06→17:44)
[2018-02-06] MEDS: FERROUS SULFATE 325 MG TAB PO SCH ×3 (08:07→17:43)
[2018-02-06] MEDS: BIFIDOBACTERIUM INFANTIS 4 MG CAPSULE PO SCH (09:10)
[2018-02-06] MEDS: LINEZOLID 600 MG TABLET PO SCH ×2 (09:11→21:52)
--- NOTE | 2018-02-06 11:06 | Occupational Therapy Tx Note ---
Occupational Therapy Tx Note - Treatment Note Tolerated: Fair Total Time Spent With Patient: 35 Occupational Therapy Treatment Note: Detail (S: Pt. c/o R shd/arm pain. Pt. reported decrease in pain after MTT tx. O: BUE exercises using 1 lb. wrist weights (seated), 2x10 ea.: Shd flex, abd, elbow flex, ext, forearm sup/pro, wrist ext, flex, and ulnar/radial deviation. Pt. required multiple short rest breaks, and presented with SOB after 8-10 reps, that resolved with rest. O2 flow was increased to 6 (from 4 liters) during exercise. Pt. Ind. initiated appropriate breathing techniques throughout session. MTT: MFR/TPR to R biceps, deltoid, and upper traps. Provided pt. with biofreeze to use PRN. Session was ended with pt. seated in arm chair with call light and bedside table within reach. Pt's spouse was present during the tx session. P: cont. OT tx to improve endurance and BUE strength for increased Ind. and safety with functional activities.) Occupational Therapy Problem List: Detail (1. Decreased endurance needed for safe and Ind ADLs and functional mobility. 2. Need to assess showering safety. ) Occupational Therapy Goals: 1. Pt will be safe and Ind with showering in sitting while using 4-6 liters of oxygen and modified breathing techniques. 2. Pt will demonstrate improved endurance and Ind with modified breathing techniques to allow safe return home. Occupational Therapy Plan: OT 2-4 days per week to address self cares, functional mobility and endurance to allow safe and Ind return home.
--- NOTE | 2018-02-06 13:31 | Physical Therapy Tx Note ---
Physical Therapy Tx Note - Treatment Note Tolerated: Fair Total Time Spent With Patient: 25 Physical Therapy Tx Note: Detail (PT treatment was limited secondary to patient experienced vertigo with sit to and from stand transfer x 2. The patient's B/P dropped to 94/66 and 84/ 58 with each stand. Nursing staff was notified. The patient's symptoms decreased with sitting. The patient completed LE exercises included: with red T-band hip abduction, LAQ, hamstring curls x 10 reps, hip adduction,toe raises x 10 reps. The patient's O2 level remained 90 throughout LE exercises.) Physical Therapy Problem List: Detail (1) Shortness of breathe at rest 2) Decreased LE strength 3) Decreased ability to complete prolonged physical activity 4) Assistance with transfers) Physical Therapy Goals: 1) Evaluate bed mobility and ambulation. 2) Evaluate the patient's balance using an objective balance scale. 3) Increase LE strength 1/3 muscle grade to improve stability of gait. 4) The patient will ambulate with assistive device distances of up to 100 feet with 6 L of O2 indpendently. 5) The patient will be independent with all bed mobility and transfers. Physical Therapy Plan: PT 1 to 2 times a day for LE strengthening and muscular endurance exercises, gait training, mobility training and balance exercises.
--- NOTE | 2018-02-06 16:22 | Swallow Tx Note ---
Swallow Tx Note - Time with Patient Total Time Spent With Patient (Min): 30 - Treatment Note Swallow Treatment Note: Patient seen in hospital room. Patient seated upright in chair with call light in reach for the duration of the session. Patient completed 3 separate strengthening exercises for pharyngeal phase of the swallow. Patient completed 10 repetitions of effortful swallow exercise independently. Completed supraglottic swallow exercise with moderate written and visual cues for up to 80% accuracy. Also completed chin tuck against resistance for 5 repetitions of 10 second holds. Patient to continue HEP 10x for 2x a day for supraglottic and effortful exercise and 10 second holds 10x 2x a day for chin tuck against resistance. Continue POT. Plan for Treatment - Consistency Modification Consistency Modification: Mechanical Liquid Modification: Regular Modification Comment: No straws. - Behavior Modification Behavior Modification: Small Sips, Alternate Sips and Bites, Position upright for all oral intake - Additional Plan Details Videofluroscopic Swallow Study Ordered: No Diagnosis/Recommendation Discussed With: Patient, Family Goals for Treatment - Short Term Goals/Status: Goal #1: 1. Patient will complete a home exercise program (HEP) 3 exercises independ Current Status: Pt is completing 1/3 independently. Goal #2: 2. Patient will tolerate advanced diet without s/s of dysphagia. Current Status: Not assessed at this time due to need for increased strengthening. - Group Home Goals/Status: Goal #1: Patient will improve safety with PO intake. No overt s/s of dysphagia.
[2018-02-07] MEDS: VANCOMYCIN HCL 1 GM VIAL PO SCH ×5 (00:03→22:55)
[2018-02-07] MEDS: ASPIRIN 81 MG TABEC PO SCH (05:57)
[2018-02-07] MEDS: TAMSULOSIN HCL 0.4 MG CAP.ER.24H PO SCH (05:57)
[2018-02-07] MEDS: SOTALOL HCL 80 MG TABLET PO SCH ×2 (05:57→20:00)
[2018-02-07] MEDS: ATORVASTATIN 20 MG TABLET PO SCH (05:58)
[2018-02-07] MEDS: LISINOPRIL 5 MG TABLET PO SCH (05:59)
[2018-02-07] MEDS: GABAPENTIN 300 MG CAPSULE PO SCH ×3 (05:59→19:53)
[2018-02-07] MEDS: CLOPIDOGREL 75MG TABLET PO SCH (05:59)
[2018-02-07] MEDS: MIDODRINE 2.5 MG PO SCH ×3 (05:59→19:56)
[2018-02-07] MEDS: TOPIRAMATE 25MG TABLET PO SCH ×3 (06:00→19:53)
[2018-02-07] MEDS: CARBIDOPA/LEVODOPA 25MG/100MG TABLET PO SCH ×3 (06:00→19:54)
[2018-02-07] MEDS: PANTOPRAZOLE SODIUM 40 MG TABLET PO SCH ×2 (06:00→19:54)
[2018-02-07] MEDS: FLUTICASONE PROPIONATE 50MCG NASAL 16 GM BTL SCH (06:00)
[2018-02-07] MEDS: UMECLIDINIUM BROMIDE (INCRUSE) 62.5MCG IH SCH (06:05)
[2018-02-07] MEDS: BREO (FLUTICASONE/VILANTEROL) 200MCG/25MCG INHALER INH SCH (06:05)
[2018-02-07] MEDS: CALCIUM CARB/VITAMIN D 500MG/200IU PO SCH ×2 (08:13→18:35)
[2018-02-07] MEDS: FERROUS SULFATE 325 MG TAB PO SCH ×3 (08:13→18:34)
[2018-02-07] MEDS: LINEZOLID 600 MG TABLET PO SCH ×2 (10:13→22:55)
[2018-02-07] MEDS: BIFIDOBACTERIUM INFANTIS 4 MG CAPSULE PO SCH (10:14)
[2018-02-08] MEDS: SOTALOL HCL 80 MG TABLET PO SCH ×2 (06:04→19:59)
[2018-02-08] MEDS: ATORVASTATIN 20 MG TABLET PO SCH (06:04)
[2018-02-08] MEDS: CARBIDOPA/LEVODOPA 25MG/100MG TABLET PO SCH ×3 (06:05→19:59)
[2018-02-08] MEDS: TAMSULOSIN HCL 0.4 MG CAP.ER.24H PO SCH (06:06)
[2018-02-08] MEDS: ASPIRIN 81 MG TABEC PO SCH (06:06)
[2018-02-08] MEDS: BREO (FLUTICASONE/VILANTEROL) 200MCG/25MCG INHALER INH SCH (06:06)
[2018-02-08] MEDS: CLOPIDOGREL 75MG TABLET PO SCH (06:06)
[2018-02-08] MEDS: GABAPENTIN 300 MG CAPSULE PO SCH ×3 (06:06→19:59)
[2018-02-08] MEDS: UMECLIDINIUM BROMIDE (INCRUSE) 62.5MCG IH SCH (06:06)
[2018-02-08] MEDS: TOPIRAMATE 25MG TABLET PO SCH ×3 (06:06→19:59)
[2018-02-08] MEDS: PANTOPRAZOLE SODIUM 40 MG TABLET PO SCH ×2 (06:06→20:00)
[2018-02-08] MEDS: LISINOPRIL 5 MG TABLET PO SCH (06:07)
[2018-02-08] MEDS: MIDODRINE 2.5 MG PO SCH ×3 (06:07→19:58)
[2018-02-08] MEDS: VANCOMYCIN HCL 1 GM VIAL PO SCH ×4 (06:08→23:51)
[2018-02-08] MEDS: FLUTICASONE PROPIONATE 50MCG NASAL 16 GM BTL SCH (06:08)
[2018-02-08 06:09] LABS: BASO % 0.3 % (0-6); EOS % 3.5 % (0-6); GRAN % 79.6 % (47-80); HEMATOCRIT 38.5 % (42.0-52.0); HEMOGLOBIN 11.4 gm/dl (14.0-18.0); LYMPH % 7.6 % (16-45); MEAN CELL VOLUME 92.1 fl (81-97); MEAN CORPUSCULAR HGB CONC 29.6 g/dl (32-36); MEAN PLATELET VOLUME 8.7 fl (7.4-10.4); PLATELET COUNT 250 K/uL (130-400); RED BLOOD COUNT 4.18 M/uL (4.40-5.70); RED CELL DISTRIBUTION WIDTH 14.9 % (11.5-14.5); WHITE BLOOD COUNT W/O DIFF 11.7 K/uL (4.2-12.2)
[2018-02-08 06:15] LABS: MEAN CORPUSCULAR HEMOGLOBIN 27.2 pg (27-33)
[2018-02-08 06:37] LABS: ALB/GLOB RATIO 1.2 (1.1-1.8); ALKALINE PHOSPHATASE 66 U/L (40-129); ALT/SGPT 8 U/L (<41); AST/SGOT 13 U/L (10.0-50.0); BLOOD UREA NITROGEN 8 mg/dL (8-23); CREATININE 0.8 mg/dL (0.7-1.2); EST GLOMERULAR FILTRATION RATE > 60 mL/min; GLUCOSE,RANDOM 103 mg/dL (74-109); TOTAL PROTEIN 5.6 g/dL (6.6-8.7)
[2018-02-08] MEDS: FERROUS SULFATE 325 MG TAB PO SCH ×3 (07:56→16:55)
[2018-02-08] MEDS: CALCIUM CARB/VITAMIN D 500MG/200IU PO SCH ×2 (07:56→16:55)
[2018-02-08] MEDS: BIFIDOBACTERIUM INFANTIS 4 MG CAPSULE PO SCH (10:54)
[2018-02-08] MEDS: LINEZOLID 600 MG TABLET PO SCH (11:26)
--- NOTE | 2018-02-08 18:33 | Physician Progress Note ---
Subjective - Date Date of Progress Note: 02/08/18 - Admitting Diagnosis Diagnosis: mrsa, bilateral pneumonia, c. diff - Subjective Events since last encounter: Pt. completed course of Linezolid IV for MRSA pneumonitis Swallow study completed and pt. advised to not use straw, take smaller sips and drink upright Pt. is tolerating PO vanco well, frequency of stools has greatly decreased and stools are becoming more formed. Nursing Care Plan Problem List Activity Intolerance (Swing Bed) Start: 02/02/18 17: 26 Freq: Status: Active Protocol: Created 02/02/18 17:26 KMC (Rec: 02/02/18 17:26 KM [id number]) Altered Thought Process (Fall Risk) Start: 02/02/18 17: 38 Freq: Status: Inactive Protocol: Created 02/02/18 17:38 KMC (Rec: 02/02/18 17:38 KM [id number]) Edit Status 02/04/18 00:20 LPR (Rec: 02/04/18 00:20 LPR [id number]) Active=>Inactive Altered Thought Process (Fall Risk) Start: 02/02/18 17: 39 Freq: Status: Active Protocol: Created 02/02/18 17:39 KMC (Rec: 02/02/18 17:39 KM [id number]) Fluid Volume Deficit Start: 02/04/18 20: 17 Freq: Status: Active Protocol: Created 02/04/18 20:17 MMT (Rec: 02/04/18 20:17 MMT [id number]) Impaired Mobility (Fall Risk) Start: 02/02/18 17: 38 Freq: Status: Inactive Protocol: Created 02/02/18 17:38 KMC (Rec: 02/02/18 17:38 KM [id number]) Edit Status 02/04/18 00:23 LPR (Rec: 02/04/18 00:23 LPR [id number]) Active=>Inactive Impaired Mobility (Fall Risk) Start: 02/02/18 17: 39 Freq: Status: Active Protocol: Created 02/02/18 17:39 KMC (Rec: 02/02/18 17:39 KM [id number]) Ineffective Airway Clearance Start: 02/02/18 17: 26 Freq: Status: Active Protocol: Created 02/02/18 17:26 KMC (Rec: 02/02/18 17:26 [facility] [place] [id number]) Ineffective Breathing Pattern Start: 02/02/18 17: 26 Freq: Status: Active Protocol: Created 02/02/18 17:26 KM (Rec: 02/02/18 17:26 [facility] [place] [id number]) Infection Start: 02/02/18 17: 26 Freq: Status: Active Protocol: Created 02/02/18 17:26 KM (Rec: 02/02/18 17:26 [facility] [place] [id number]) Knowledge Deficit (Swing Bed) Start: 02/02/18 17: 26 Freq: Status: Active Protocol: Created 02/02/18 17:26 KM (Rec: 02/02/18 17:26 [facility] [place] [id number]) Pain (Swing Bed) Start: 02/02/18 17: 26 Freq: Status: Active Protocol: Created 02/02/18 17:26 KM (Rec: 02/02/18 17:26 [facility] [place] [id number]) Risk for Injury (Fall Risk) Start: 02/02/18 17: 38 Freq: Status: Inactive Protocol: Created 02/02/18 17:38 KMC (Rec: 02/02/18 17:38 [facility] [place] [id number]) Edit Status 02/04/18 00:22 LPR (Rec: 02/04/18 00:22 LPR [id number]) Active=>Inactive Risk for Injury (Fall Risk) Start: 02/02/18 17: 39 Freq: Status: Active Protocol: Created 02/02/18 17:39 KM (Rec: 02/02/18 17:39 [facility] [place] [id number]) General - Cognitive Patterns Speech: Normal - Communication Select best description of speech pattern: Clear Speech Ability to express ideas and wants: Understood Understanding verbal content: Usually Understands - Mood and Behavior Patterns Appearance: Well Groomed Mood: Normal Attitude: Cooperative Motor Activity: Calm Affect: Appropriate - Physical Functioning Activity Level: Up with assist x1 Turning: Self ad marcell ROM Ability: Moves all extremities Assistive Devices: 2 Wheel Walker Ambulation Ability: Needs Assist Bed Mobility: Independent Transfer Ability: Independent Bathing Ability: Needs Assist Personal Hygiene: Independent Dressing Ability: Independent Eating (Feeding) Ability: Independent Toileting Ability: Independent Administer Own Medication: Needs Assist - Continence Bowel Pattern: Diarrhea Bladder Pattern: Normal Meds/Allergies - Allergies Allergies Allergy/AdvReac Type Severity Reaction Status Date / Time dipyridamole Allergy Intermediate ABDOMINAL Verified 01/11/18 18:04 [From Persantine] PAIN - Active Medications Current Medications Aspirin (Ecotrin (Ec)) 81 mg PO 0600 [facility] Last Admin: 02/08/18 06:06 Dose: 81 mg Atorvastatin Calcium (Lipitor) 5 mg PO 0600 [facility] Last Admin: 02/08/18 06:04 Dose: 5 mg Calcium/Vitamin D (Calcium 500+D Tablet) 1 tab PO BIDWM [facility] Last Admin: 02/08/18 16:55 Dose: 1 tab Carbidopa/Levodopa (Sinemet) 1 each PO 0600,1200,1999 [facility] Last Admin: 02/08/18 12:02 Dose: 1 each Clopidogrel Bisulfate (Plavix) 75 mg PO 0600 [facility] Last Admin: 02/08/18 06:06 Dose: 75 mg Ferrous Sulfate (Iron) 325 mg PO WMEALS [facility] Last Admin: 02/08/18 16:55 Dose: 325 mg Fluticasone Propionate (Flonase) 2 spray NA 599 [facility] Last Admin: 02/08/18 06:08 Dose: 2 spray Gabapentin (Neurontin) 300 mg PO 0600,1200 [facility] Last Admin: 02/08/18 12:02 Dose: 300 mg Gabapentin (Neurontin) 600 mg PO 1999 [facility] Last Admin: 02/07/18 19:53 Dose: 600 mg Lisinopril (Zestril) 2.5 mg PO 0600 [facility] Last Admin: 02/08/18 06:07 Dose: 2.5 mg Pantoprazole Sodium (Protonix) 40 mg PO 00,1999 [facility] Last Admin: 02/08/18 06:06 Dose: 40 mg Patient Own Med: (Midodrine 2.5 Mg) 1 each PO 0600,1200,1999 [facility] Last Admin: 02/08/18 12:02 Dose: 1 each Sotalol HCl (Betapace) 80 mg PO 00,1999 [facility] Last Admin: 02/08/18 06:04 Dose: 80 mg Tamsulosin HCl (Flomax) 0.4 mg PO 0600 [facility] Last Admin: 02/08/18 06:06 Dose: 0.4 mg Topiramate (Topiramate) 25 mg PO 0600,1200,1999 [facility] Last Admin: 02/08/18 12:02 Dose: 25 mg Vancomycin HCl (Vanco) 125 mg PO Q6H [facility] Stop: 02/14/18 17:46 Last Admin: 02/08/18 16:56 Dose: 125 mg Objective - Vital Signs Vital Signs: Vital Signs - Last 24 Hrs Temp Pulse Pulse Resp BP Pulse Ox 02/08/18 08:00 97.9 F 81 22 139/86 94 L 02/08/18 06:06 79 18 90 L 02/07/18 20:00 98.1 F 75 20 130/87 94 L - General General Appearance: Alert, Oriented x3, Cooperative, No acute distress - Head Head exam: Normal inspection - Eye Eye exam: Normal appearance, PERRL Pupils: Normal accommodation - ENT ENT exam: Normal exam, Mucous membranes moist, Normal external ear exam, Normal orophraynx, TM's normal bilaterally Ear exam: Normal external inspection. negative: External canal tenderness Nasal Exam: Normal inspection. negative: Discharge, Sinus tenderness Mouth exam: Normal external inspection, Tongue normal Teeth exam: Normal inspection. negative: Dental caries Throat exam: Normal inspection. negative: Tonsillar erythema, Tonsillar exudate - Neck Neck exam: Normal inspection, Full ROM. negative: Tenderness - Respiratory Respiratory exam: Decreased breath sounds. negative: Accessory muscle use, Rhonchi, Wheezes - Cardiovascular Cardiovascular Exam: Regular rate, Normal rhythm, Normal heart sounds Peripheral Pulses: 2+: Radial (R), Radial (L), Dorsalis Pedis (R), Dorsalis Pedis (L) - GI/Abdominal GI/Abdominal exam: Soft, Normal bowel sounds. negative: Tenderness - Rectal Rectal exam: Deferred - exam: Deferred - Back Back exam: Reports: Normal inspection, Full ROM. Denies: Muscle spasm, Rash noted, Tenderness - Neurological Neurological exam: Alert, Normal gait, Oriented X3, Reflexes normal - Psychiatric Psychiatric exam: Normal affect, Normal mood - Skin Skin exam: Dry, Intact, Normal color, Warm H&P Results - Labs Result Diagrams: 02/08/18 06:05 02/08/18 06:05 Labs Last 24 Hours: Laboratory Results - last 24 hr 02/08/18 02/08/18 06:05 06:05 WBC 11.7 RBC 4.18 L Hgb 11.4 L Hct 38.5 L MCV 92.1 MCH 27.2 MCHC 29.6 L RDW 14.9 H Plt Count 250 MPV 8.7 Gran % 79.6 Lymphocytes % 7.6 L Monocytes % 9.0 Eosinophils % 3.5 Basophils % 0.3 Sodium 146 H Potassium 4.3 Chloride 103 Carbon Dioxide 32.0 H Anion Gap 11.0 BUN 8 Creatinine 0.8 Estimated GFR > 60 Random Glucose 103 Calcium 9.4 Total Bilirubin 0.50 AST 13 ALT 8 Alkaline Phosphatase 66 Total Protein 5.6 L Albumin 3.0 L Globulin 2.6 Albumin/Globulin Ratio 1.2 - Chest X-Ray In Last 90 Days Status: Pending, Report reviewed Discharge Potential - Discharge Needs Community Services Used Prior to Admission: Transportation Patient Discharge Plan Description: Return Home Community Services Needed at Discharge: Transportation Plan - Swing Bed Certification Initial Certification Due: 02/02/18 14 Day Re-Cert Due: 02/16/18 44 Day Re-Cert Due: 03/18/18 74 Day Re-Cert Due: 04/17/18 - Detailed Diagnosis and Plan (1) Physical deconditioning Current Visit: No Status: Acute Base Code: R53.81 - OTHER MALAISE Comment : 02/08/18: Pt. is deconditioned following hospitalization for bilateral pneumonia secondary to MRSA infection. Pt. was recently SB (01/08-01/15) for similar course. Pt. has completed PT/OT daily M-F and worked on strength and physical functioning. Swallow study completed and pt. recommended to not use straws, recommended to drink upright and take small sips. Pt. is tentatively planning to d/c home on Saturday 02/10. (2) Pneumonia of both lungs due to methicillin resistant Staphylococcus aureus ( MRSA) Current Visit: Yes Status: Acute Base Code: J15.212 - PNEUMONIA DUE TO METHICILLIN RESISTANT STAPHYLOCOCCUS AUREUS Comment: 02/08/18: Pt. daignosed with multilobular PNA/HCAP from MRSA. (positive culture on 01/20/18) Placed in droplet precautions. Pt. has completed treatment with linezolid 600mg bid. f/ u CXR was recommended 3-4 weeks post-hospital discharge. (3) Status post non-ST elevation myocardial infarction (NSTEMI) Current Visit: Yes Status: Acute Base Code: I25.2 - OLD MYOCARDIAL INFARCTION Comment: 02/08/18: NSTEMI on 01/20/18, elevated trops, and s/p stent to LAD. Hx a fib. Pt's vital signs have remained stable. CBC and CMP relatively unchanged since admission. (4) C. difficile diarrhea Current Visit: Yes Status: Acute Base Code: A04.72 - ENTEROCOLITIS D/T CLOSTRIDIUM DIFFICILE, NOT SPCF RECUR Comment: 02/08/18 1756: Positive c. diff from stool culture obtained on 02/04. PO vanco 125mg q6h for 10 days ordered. Will continue to encourage fluids and monitor vital signs. Frequency of stools has decreased and stools are becoming more formed. (5) Chronic respiratory failure with hypoxia Current Visit: Yes Status: Acute Base Code: J96.11 - CHRONIC RESPIRATORY FAILURE WITH HYPOXIA Comment: 02/08/18: Hx COPD, L partial lobectomy, pt. on on 4L O2 at home and currently. Will continue to monitor VS to maintain sats > 92% (6) Full code status Current Visit: No Status: Acute Base Code: Z78.9 - OTHER SPECIFIED HEALTH STATUS Comment: 02/08/18: Pt. is full code status
[2018-02-09] MEDS: CARBIDOPA/LEVODOPA 25MG/100MG TABLET PO SCH ×4 (05:59→20:13)
[2018-02-09] MEDS: SOTALOL HCL 80 MG TABLET PO SCH ×2 (05:59→20:14)
[2018-02-09] MEDS: TAMSULOSIN HCL 0.4 MG CAP.ER.24H PO SCH (06:00)
[2018-02-09] MEDS: LISINOPRIL 5 MG TABLET PO SCH (06:00)
[2018-02-09] MEDS: TOPIRAMATE 25MG TABLET PO SCH ×3 (06:00→20:14)
[2018-02-09] MEDS: ASPIRIN 81 MG TABEC PO SCH (06:00)
[2018-02-09] MEDS: PANTOPRAZOLE SODIUM 40 MG TABLET PO SCH ×2 (06:00→20:14)
[2018-02-09] MEDS: CLOPIDOGREL 75MG TABLET PO SCH (06:01)
[2018-02-09] MEDS: ATORVASTATIN 20 MG TABLET PO SCH (06:01)
[2018-02-09] MEDS: GABAPENTIN 300 MG CAPSULE PO SCH ×3 (06:01→20:13)
[2018-02-09] MEDS: VANCOMYCIN HCL 1 GM VIAL PO SCH ×4 (06:03→17:13)
[2018-02-09] MEDS: MIDODRINE 2.5 MG PO SCH ×3 (06:04→20:14)
[2018-02-09] MEDS: BREO (FLUTICASONE/VILANTEROL) 200MCG/25MCG INHALER INH SCH (06:09)
[2018-02-09] MEDS: UMECLIDINIUM BROMIDE (INCRUSE) 62.5MCG IH SCH (06:09)
[2018-02-09] MEDS: FLUTICASONE PROPIONATE 50MCG NASAL 16 GM BTL SCH (06:10)
[2018-02-09] MEDS: CALCIUM CARB/VITAMIN D 500MG/200IU PO SCH ×2 (08:15→17:13)
[2018-02-09] MEDS: FERROUS SULFATE 325 MG TAB PO SCH ×4 (08:15→17:13)
[2018-02-09] MEDS: BIFIDOBACTERIUM INFANTIS 4 MG CAPSULE PO SCH (10:34)
--- NOTE | 2018-02-09 13:33 | Occupational Therapy Tx Note ---
Occupational Therapy Tx Note - Treatment Note Tolerated: Fair Total Time Spent With Patient: 30 (ADL) Occupational Therapy Treatment Note: Detail (S: Pt resting with present. O: Sit to stand and amb to bathroom with 6 liters of oxygen. Pt able to doff gown, slippers and underwear Indly with rest breaks for breathing. Pt completed showering in sitting Indly with multiple rests due to significant shortness of breath. He was able to utilize breathing techniques but still required cues for posture. Pt donned t-shirt, underwear, pants and slippers Indly in sitting. Pt able to comb hair Indly. Pt amb back to chair Indly. A: Pt is Ind with showering and dressing although he continues to become extremely short of breath.) Occupational Therapy Problem List: Detail (1. Decreased endurance needed for safe and Ind ADLs and functional mobility. 2. Need to assess showering safety. ) Occupational Therapy Goals: 1. Pt will be safe and Ind with showering in sitting while using 4-6 liters of oxygen and modified breathing techniques. 2. Pt will demonstrate improved endurance and Ind with modified breathing techniques to allow safe return home. Prognosis: Good Occupational Therapy Plan: OT 2-4 days per week to address self cares, functional mobility and endurance to allow safe and Ind return home.
--- NOTE | 2018-02-09 13:39 | Physical Therapy Tx Note ---
Physical Therapy Tx Note - Treatment Note Tolerated: Good Total Time Spent With Patient: 30 Physical Therapy Tx Note: Detail (The patient was up in chair when PT arrived. The patient ambulated one lap with 4 wheeled walker and one lap without the walker . O2 saturation level dropped to the 80's and 79. Patient required verbal cues for proper pursed lip breathing. Patient began holding inspiration for too long of time. O2 sat level improved with proper breathing technique. The patient completed LE endurance exercises: marching, hip adductor squeezes , red T-band hip abduction, hamstring curls and LAQ all 10 to 15 reps and UE exercises bicep curls, shoulder flexion and abduction x 10 reps. O2 sat level remained 90 to 88 with exercises. Improved endurance was noted.) Physical Therapy Problem List: Detail (1) Shortness of breathe at rest 2) Decreased LE strength 3) Decreased ability to complete prolonged physical activity 4) Assistance with transfers) Physical Therapy Goals: 1) Evaluate bed mobility and ambulation. 2) Evaluate the patient's balance using an objective balance scale. 3) Increase LE strength 1/3 muscle grade to improve stability of gait. 4) The patient will ambulate with assistive device distances of up to 100 feet with 6 L of O2 indpendently. 5) The patient will be independent with all bed mobility and transfers. Physical Therapy Plan: PT 1 to 2 times a day for LE strengthening and muscular endurance exercises, gait training, mobility training and balance exercises.
[2018-02-10] MEDS: VANCOMYCIN HCL 1 GM VIAL PO SCH ×5 (00:03→23:31)
[2018-02-10] MEDS: UMECLIDINIUM BROMIDE (INCRUSE) 62.5MCG IH SCH (05:52)
[2018-02-10] MEDS: BREO (FLUTICASONE/VILANTEROL) 200MCG/25MCG INHALER INH SCH (05:52)
[2018-02-10] MEDS: CLOPIDOGREL 75MG TABLET PO SCH (06:14)
[2018-02-10] MEDS: ASPIRIN 81 MG TABEC PO SCH (06:14)
[2018-02-10] MEDS: PANTOPRAZOLE SODIUM 40 MG TABLET PO SCH ×2 (06:14→19:53)
[2018-02-10] MEDS: CARBIDOPA/LEVODOPA 25MG/100MG TABLET PO SCH ×3 (06:14→19:53)
[2018-02-10] MEDS: SOTALOL HCL 80 MG TABLET PO SCH ×2 (06:14→19:54)
[2018-02-10] MEDS: GABAPENTIN 300 MG CAPSULE PO SCH ×3 (06:14→19:54)
[2018-02-10] MEDS: TAMSULOSIN HCL 0.4 MG CAP.ER.24H PO SCH (06:14)
[2018-02-10] MEDS: TOPIRAMATE 25MG TABLET PO SCH ×3 (06:15→19:54)
[2018-02-10] MEDS: LISINOPRIL 5 MG TABLET PO SCH (06:15)
[2018-02-10] MEDS: ATORVASTATIN 20 MG TABLET PO SCH (06:15)
[2018-02-10] MEDS: FLUTICASONE PROPIONATE 50MCG NASAL 16 GM BTL SCH (06:16)
[2018-02-10] MEDS: MIDODRINE 2.5 MG PO SCH ×3 (06:16→19:53)
[2018-02-10] MEDS: FERROUS SULFATE 325 MG TAB PO SCH ×3 (10:05→17:49)
[2018-02-10] MEDS: CALCIUM CARB/VITAMIN D 500MG/200IU PO SCH ×2 (10:05→17:49)
[2018-02-10] MEDS: BIFIDOBACTERIUM INFANTIS 4 MG CAPSULE PO SCH (10:05)
--- NOTE | 2018-02-10 10:15 | Physical Therapy Tx Note ---
Physical Therapy Tx Note - Treatment Note Tolerated: Good Total Time Spent With Patient: 25 Physical Therapy Tx Note: Detail (The patient was sleeping in chair when PT arrived. The patient's was present for PT treatment. The patient ambulated 11 feet x 2 without device with 6 L of O2( rest period inbetween . O2 sat level dropped to 75 after second walk. Patient recovered to 90 after 1 minute. The patient completed LE exercises including : ankle pumps, LAQ, red T- band hip abduction, hamstring curls and hip presses and hip adduction all x 15 reps. The patient's O2 sat's remained in the 90's.) Physical Therapy Problem List: Detail (1) Shortness of breathe at rest 2) Decreased LE strength 3) Decreased ability to complete prolonged physical activity 4) Assistance with transfers) Physical Therapy Goals: 1) Evaluate bed mobility and ambulation. 2) Evaluate the patient's balance using an objective balance scale. 3) Increase LE strength 1/3 muscle grade to improve stability of gait. 4) The patient will ambulate with assistive device distances of up to 100 feet with 6 L of O2 indpendently. 5) The patient will be independent with all bed mobility and transfers. Physical Therapy Plan: PT 1 to 2 times a day for LE strengthening and muscular endurance exercises, gait training, mobility training and balance exercises.
--- NOTE | 2018-02-10 14:01 | Physical Therapy Tx Note ---
Physical Therapy Tx Note - Treatment Note Tolerated: Good Total Time Spent With Patient: 20 Physical Therapy Tx Note: Detail (The patient was up in chair when PT arrived. The patient completed the following UE exercises with 1# shoulder flexion, abduction, bicep and tricep curls x 15 reps, scapular squeezes using red theraband x 10 reps. The patient's O2 sat's remained in the 90's. The patient ambulated 6 feet then stated he needed to sit due to shortness of breath. O2 sat remained 92 dropped to the 84 after sitting. The patient was instructed to slow his breathing and purse lip breath and sat level returned to the 90's after 1 minute. The patient was left with with call light within reach.) Physical Therapy Problem List: Detail (1) Shortness of breathe at rest 2) Decreased LE strength 3) Decreased ability to complete prolonged physical activity 4) Assistance with transfers) Physical Therapy Goals: 1) Evaluate bed mobility and ambulation. 2) Evaluate the patient's balance using an objective balance scale. 3) Increase LE strength 1/3 muscle grade to improve stability of gait. 4) The patient will ambulate with assistive device distances of up to 100 feet with 6 L of O2 indpendently. 5) The patient will be independent with all bed mobility and transfers. Physical Therapy Plan: PT 1 to 2 times a day for LE strengthening and muscular endurance exercises, gait training, mobility training and balance exercises.
--- NOTE | 2018-02-10 16:09 | Swallow Tx Note ---
Swallow Tx Note - Time with Patient Total Time Spent With Patient (Min): 30 - Treatment Note Swallow Treatment Note: Pt seen upright in chair. Pt c/o increased shortness of breath - alerted nursing to this complaint. Pt completed strengthening exercises for dysphagia including supraglottic swallow exercise and effortful swallow exercise. Pt tolerance for repetitions is decreased compared to the previous session. Pt shortness of breath prevented him from completing 1/3 exercises today. Patient is able to do effortful and supraglottic exercise with minimal verbal/visual cues up to 85% accurate this date. Continue to complete HEP to encourage strengthening and work toward diet advancement. Plan for Treatment - Consistency Modification Consistency Modification: Soft Liquid Modification: Regular - Behavior Modification Behavior Modification: Small Sips, Alternate Sips and Bites, Hard Swallow, Position upright for all oral intake Goals for Treatment - Short Term Goals/Status: Goal #1: 1. Patient will complete a home exercise program (HEP) 3 exercises independ Current Status: 2/3 at this time up to 85% accurate. Goal #2: 2. Patient will tolerate advanced diet without s/s of dysphagia. - Jail Goals/Status: Goal #1: Patient will improve safety with PO intake. No overt s/s of dysphagia. Current Status: Not yet addressed except with behavior modification with current diet.
[2018-02-11] MEDS: BREO (FLUTICASONE/VILANTEROL) 200MCG/25MCG INHALER INH SCH (05:56)
[2018-02-11] MEDS: UMECLIDINIUM BROMIDE (INCRUSE) 62.5MCG IH SCH (05:56)
[2018-02-11] MEDS: TAMSULOSIN HCL 0.4 MG CAP.ER.24H PO SCH (06:08)
[2018-02-11] MEDS: LISINOPRIL 5 MG TABLET PO SCH (06:09)
[2018-02-11] MEDS: SOTALOL HCL 80 MG TABLET PO SCH ×2 (06:09→19:58)
[2018-02-11] MEDS: ATORVASTATIN 20 MG TABLET PO SCH (06:09)
[2018-02-11] MEDS: TOPIRAMATE 25MG TABLET PO SCH ×3 (06:10→19:58)
[2018-02-11] MEDS: CARBIDOPA/LEVODOPA 25MG/100MG TABLET PO SCH ×3 (06:10→19:58)
[2018-02-11] MEDS: CLOPIDOGREL 75MG TABLET PO SCH (06:10)
[2018-02-11] MEDS: PANTOPRAZOLE SODIUM 40 MG TABLET PO SCH ×2 (06:10→19:58)
[2018-02-11] MEDS: GABAPENTIN 300 MG CAPSULE PO SCH ×3 (06:11→19:58)
[2018-02-11] MEDS: MIDODRINE 2.5 MG PO SCH ×3 (06:11→19:59)
[2018-02-11] MEDS: ASPIRIN 81 MG TABEC PO SCH (06:11)
[2018-02-11] MEDS: FLUTICASONE PROPIONATE 50MCG NASAL 16 GM BTL SCH (06:11)
[2018-02-11] MEDS: VANCOMYCIN HCL 1 GM VIAL PO SCH ×3 (06:12→17:49)
[2018-02-11] MEDS: CALCIUM CARB/VITAMIN D 500MG/200IU PO SCH ×2 (08:05→17:43)
[2018-02-11] MEDS: FERROUS SULFATE 325 MG TAB PO SCH ×3 (08:05→17:43)
[2018-02-11] MEDS: BIFIDOBACTERIUM INFANTIS 4 MG CAPSULE PO SCH (09:41)
--- NOTE | 2018-02-11 10:41 | Physical Therapy Tx Note ---
Physical Therapy Tx Note - Treatment Note Physical Therapy Tx Note: Detail (Patient declined treatment, ambulation and seated exercises due to shortness of breath.) Physical Therapy Problem List: Detail (1) Shortness of breathe at rest 2) Decreased LE strength 3) Decreased ability to complete prolonged physical activity 4) Assistance with transfers) Physical Therapy Goals: 1) Evaluate bed mobility and ambulation. 2) Evaluate the patient's balance using an objective balance scale. 3) Increase LE strength 1/3 muscle grade to improve stability of gait. 4) The patient will ambulate with assistive device distances of up to 100 feet with 6 L of O2 indpendently. 5) The patient will be independent with all bed mobility and transfers. Physical Therapy Plan: PT 1 to 2 times a day for LE strengthening and muscular endurance exercises, gait training, mobility training and balance exercises.
--- NOTE | 2018-02-11 14:20 | Physical Therapy Tx Note ---
Physical Therapy Tx Note - Treatment Note Tolerated: Good Physical Therapy Tx Note: Detail (The patient refused PT, stating he could not breath. Will attempt PT tomorrow.) Physical Therapy Problem List: Detail (1) Shortness of breathe at rest 2) Decreased LE strength 3) Decreased ability to complete prolonged physical activity 4) Assistance with transfers) Physical Therapy Goals: 1) Evaluate bed mobility and ambulation. 2) Evaluate the patient's balance using an objective balance scale. 3) Increase LE strength 1/3 muscle grade to improve stability of gait. 4) The patient will ambulate with assistive device distances of up to 100 feet with 6 L of O2 indpendently. 5) The patient will be independent with all bed mobility and transfers. Physical Therapy Plan: PT 1 to 2 times a day for LE strengthening and muscular endurance exercises, gait training, mobility training and balance exercises.
[2018-02-12] MEDS: VANCOMYCIN HCL 1 GM VIAL PO SCH ×5 (00:04→23:56)
[2018-02-12] MEDS: UMECLIDINIUM BROMIDE (INCRUSE) 62.5MCG IH SCH (05:39)
[2018-02-12] MEDS: BREO (FLUTICASONE/VILANTEROL) 200MCG/25MCG INHALER INH SCH (05:39)
[2018-02-12] MEDS: ATORVASTATIN 20 MG TABLET PO SCH (05:46)
[2018-02-12] MEDS: GABAPENTIN 300 MG CAPSULE PO SCH ×3 (05:48→20:03)
[2018-02-12] MEDS: TAMSULOSIN HCL 0.4 MG CAP.ER.24H PO SCH (05:48)
[2018-02-12] MEDS: CARBIDOPA/LEVODOPA 25MG/100MG TABLET PO SCH ×3 (05:49→20:02)
[2018-02-12] MEDS: CLOPIDOGREL 75MG TABLET PO SCH (05:49)
[2018-02-12] MEDS: SOTALOL HCL 80 MG TABLET PO SCH ×2 (05:49→20:02)
[2018-02-12] MEDS: TOPIRAMATE 25MG TABLET PO SCH ×3 (05:49→20:02)
[2018-02-12] MEDS: ASPIRIN 81 MG TABEC PO SCH (05:49)
[2018-02-12] MEDS: MIDODRINE 2.5 MG PO SCH ×3 (05:50→20:03)
[2018-02-12] MEDS: FLUTICASONE PROPIONATE 50MCG NASAL 16 GM BTL SCH (05:50)
[2018-02-12] MEDS: PANTOPRAZOLE SODIUM 40 MG TABLET PO SCH ×2 (05:54→20:02)
[2018-02-12] MEDS: LISINOPRIL 5 MG TABLET PO SCH (05:54)
[2018-02-12] MEDS: FERROUS SULFATE 325 MG TAB PO SCH ×3 (08:09→17:04)
[2018-02-12] MEDS: CALCIUM CARB/VITAMIN D 500MG/200IU PO SCH ×2 (08:09→17:05)
[2018-02-12] MEDS: BIFIDOBACTERIUM INFANTIS 4 MG CAPSULE PO SCH (09:47)
--- NOTE | 2018-02-12 10:13 | Physical Therapy Tx Note ---
Physical Therapy Tx Note - Treatment Note Tolerated: Good Total Time Spent With Patient: 20 Physical Therapy Tx Note: Detail (Patient was seated sleeping in chair upon SHIPPING SUPERVISOR arrival. Patient declined ambulation and standing exercises, but agreed to seated exercises in chair. Patient performed the following exercises x10 reps each: marching, LAQ, hamstring sets, hip abduction isometrics, adductor squeezes , heel raises, toe raises, bicep curls, overhead raises, and glut squeezes. Patient declined further exercises due to shortness of breath and fatigue. Patient was left seated in chair with call light within reach.) Physical Therapy Problem List: Detail (1) Shortness of breathe at rest 2) Decreased LE strength 3) Decreased ability to complete prolonged physical activity 4) Assistance with transfers) Physical Therapy Goals: 1) Evaluate bed mobility and ambulation. 2) Evaluate the patient's balance using an objective balance scale. 3) Increase LE strength 1/3 muscle grade to improve stability of gait. 4) The patient will ambulate with assistive device distances of up to 100 feet with 6 L of O2 indpendently. 5) The patient will be independent with all bed mobility and transfers. Prognosis: Good Physical Therapy Plan: PT 1 to 2 times a day for LE strengthening and muscular endurance exercises, gait training, mobility training and balance exercises.
--- NOTE | 2018-02-12 14:30 | Physical Therapy Tx Note ---
Physical Therapy Tx Note - Treatment Note Tolerated: Good Total Time Spent With Patient: 30 Physical Therapy Tx Note: Detail (Patient states doing okay this afternoon. Patient declined ambulation, but agreed to try standing exercises. Patient transferred sit to and stand SBA x1. Patient performed standing heel raises and standing toe raises x10 reps each. Patient performed the following exercises seated in chair x10 reps each: marching, LAQ, adductor squeezes, scapular squeezes, shoulder abduction, D2 flexion/extension diagonal, shoulder punches, and isometric triceps. Patient tolerated treatment well. Patient declined additional standing exercises due to shortness of breath. Patient required rest breaks after each exercise to catch breath. Patient declined further exercises due to shortness of breath, and fatigue. Patient was left seated in chair with call light within reach.) Physical Therapy Problem List: Detail (1) Shortness of breathe at rest 2) Decreased LE strength 3) Decreased ability to complete prolonged physical activity 4) Assistance with transfers) Physical Therapy Goals: 1) Evaluate bed mobility and ambulation. 2) Evaluate the patient's balance using an objective balance scale. 3) Increase LE strength 1/3 muscle grade to improve stability of gait. 4) The patient will ambulate with assistive device distances of up to 100 feet with 6 L of O2 indpendently. 5) The patient will be independent with all bed mobility and transfers. Prognosis: Good Physical Therapy Plan: PT 1 to 2 times a day for LE strengthening and muscular endurance exercises, gait training, mobility training and balance exercises.
--- NOTE | 2018-02-12 17:16 | Swallow Tx Note ---
Swallow Tx Note - Time with Patient Total Time Spent With Patient (Min): 30 - Treatment Note Swallow Treatment Note: Patient seen upright in chair in swing bed room. Patient kept call light with him for the duration of treatment. Upon arrival patient was sleeping but he awoke easily and expressed that he was ready to participate in swallow strengthening exercises. As of this date Lee is tolerating up to 5 repetitions of each exercise - effortful swallow, supraglottic swallow and chin tuck against resistance. Beyond 5 repetitions of each and Lee begins to experience increased shortness of breath which requires him to stop the exercises and focus on breathing before he is able to continue. Lee states that his breathing has felt worse the last three days. Lee demonstrates good follow through on completing the exercises as instructed as long as he has access to a written instruction to assist in communication. Per nursing Lee is able to tolerate his medications with water vs. initial with pudding/applesauce as he did at admission. This biology tutor recommends continuation of strengthening exercises with a home program and or home speech therapy to help facilitate increased follow through and carryover of exercises. Patient consumes a generally soft diet at baseline secondary to a hx of difficulty with dry/crumbly foods in conjunction with his shortness of breath. Plan for Treatment - Consistency Modification Consistency Modification: Soft Liquid Modification: Regular - Behavior Modification Modification Comment: No straws. - Additional Plan Details Videofluroscopic Swallow Study Ordered: No Diagnosis/Recommendation Discussed With: Patient Goals for Treatment - Short Term Goals/Status: Goal #1: 1. Patient will complete a home exercise program (HEP) 3 exercises independ Current Status: Patient is completing 3/3 exercises but only 5 repetitions. Goal #2: 2. Patient will tolerate advanced diet without s/s of dysphagia. Current Status: Unable to address due to continued shortness of breath. - Scale Adjuster Goals/Status: Goal #1: Patient will improve safety with PO intake. No overt s/s of dysphagia. - Additional Goal Detail Additional Goal Detail: Patient could benefit from continued ST to follow up regarding strengthening and diet advancement and or exceptions.
[2018-02-13] MEDS: ASPIRIN 81 MG TABEC PO SCH (05:30)
[2018-02-13] MEDS: PANTOPRAZOLE SODIUM 40 MG TABLET PO SCH ×2 (05:30→19:55)
[2018-02-13] MEDS: CARBIDOPA/LEVODOPA 25MG/100MG TABLET PO SCH ×3 (05:30→19:55)
[2018-02-13] MEDS: GABAPENTIN 300 MG CAPSULE PO SCH ×3 (05:30→19:55)
[2018-02-13] MEDS: SOTALOL HCL 80 MG TABLET PO SCH ×2 (05:30→19:56)
[2018-02-13] MEDS: TAMSULOSIN HCL 0.4 MG CAP.ER.24H PO SCH (05:30)
[2018-02-13] MEDS: LISINOPRIL 5 MG TABLET PO SCH (05:30)
[2018-02-13] MEDS: ATORVASTATIN 20 MG TABLET PO SCH (05:31)
[2018-02-13] MEDS: CLOPIDOGREL 75MG TABLET PO SCH (05:31)
[2018-02-13] MEDS: VANCOMYCIN HCL 1 GM VIAL PO SCH ×3 (05:32→17:48)
[2018-02-13] MEDS: UMECLIDINIUM BROMIDE (INCRUSE) 62.5MCG IH SCH (05:32)
[2018-02-13] MEDS: BREO (FLUTICASONE/VILANTEROL) 200MCG/25MCG INHALER INH SCH (05:32)
[2018-02-13] MEDS: TOPIRAMATE 25MG TABLET PO SCH ×3 (05:32→19:55)
[2018-02-13] MEDS: FLUTICASONE PROPIONATE 50MCG NASAL 16 GM BTL SCH (05:34)
[2018-02-13] MEDS: MIDODRINE 2.5 MG PO SCH ×3 (05:37→19:57)
--- NOTE | 2018-02-13 07:18 | RADIOLOGY REPORT ---
EXAM: CHEST, TWO VIEWS HISTORY: PNEUMONIA. TECHNIQUE: AP and lateral views of the chest were obtained. Comparison: Portable chest 06/24/16. FINDINGS: Stable heart size. Thoracic dextroscoliosis again evident. There is , however, new patchy infiltrate bilaterally in the mid to lower lungs and probably some new blunting of the right lateral costophrenic angles as well. Some pleural density along the left mid chest laterally also. Findings may represent bilateral pneumonitis although CHF with somewhat asymmetric pulmonary edema greater on the left could not be excluded. Follow-up films suggested. No pneumothorax evident. IMPRESSION: 1. NEW PATCHY INFILTRATE IN THE MID TO LOWER LUNGS BILATERALLY LEFT GREATER THAN RIGHT COMPARED WITH 06/24/16. THERE IS PROBABLY A SMALL RIGHT PLEURAL EFFUSION WELL. 2. FINDINGS MAY REPRESENT BILATERAL PNEUMONITIS OR SOMEWHAT ASYMMETRIC PULMONARY EDEMA. FOLLOW-UP FILMS SUGGESTED. JOB NUMBER: [id number] [facility]
[2018-02-13] MEDS: CALCIUM CARB/VITAMIN D 500MG/200IU PO SCH ×2 (08:00→17:45)
[2018-02-13] MEDS: FERROUS SULFATE 325 MG TAB PO SCH ×3 (08:00→17:45)
--- NOTE | 2018-02-13 09:45 | Physical Therapy Tx Note ---
Physical Therapy Tx Note - Treatment Note Tolerated: Good Total Time Spent With Patient: 25 Physical Therapy Tx Note: Detail (The patient was sitting up in chair when PT arrived with present. The patient's was concerned that patient would not participate and would do nothing at home.The patient's balance was tested using the Tinetti Assessment Tool and was 19/28 which is in the moderate risk for fall category. The patient completed the following LE exercises: hip flexion x 17 reps, red T-band hip abduction and hamstring curls x 15 reps and LAQ quads x 20 reps, hip adductor squeezes and heel toe raises x 10 reps and bicep curls x 10 reps. The patient's O2 sat. remained in the 90's, dropping at the lowest to 83 after patient sat down. The patient's was asked if she felt we needed to practice stairs or anything else before returning home and she stated no. She reprted that he only had one stair to climb at home and would be able to climb it easily using 2 railings. Will see patient this pm to check LE strength.) Physical Therapy Problem List: Detail (1) Shortness of breathe at rest 2) Decreased LE strength 3) Decreased ability to complete prolonged physical activity 4) Assistance with transfers) Physical Therapy Goals: 1) Evaluate bed mobility and ambulation. 2) Evaluate the patient's balance using an objective balance scale. 3) Increase LE strength 1/3 muscle grade to improve stability of gait. 4) The patient will ambulate with assistive device distances of up to 100 feet with 6 L of O2 indpendently. 5) The patient will be independent with all bed mobility and transfers. Physical Therapy Plan: PT 1 to 2 times a day for LE strengthening and muscular endurance exercises, gait training, mobility training and balance exercises.
[2018-02-13] MEDS: BIFIDOBACTERIUM INFANTIS 4 MG CAPSULE PO SCH (10:00)
--- NOTE | 2018-02-13 13:53 | Rehab Discharge Summary ---
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 PMH - Respiratory Hx Respiratory Disorders Yes Hx Chronic Obstructive Yes Pulmonary Disease (COPD) Comment: RLlobe removed from CA PMH - Cardiovascular Hx Cardiovascular Disorders Yes Hx Abnormal EKG Yes Hx Cardiac Catheterization Yes: recent cath [place] 01/17/2015 Hx Edema Yes Hx Heart Attack Yes Hx Hypertension Yes Hx Irregular Heartbeat Yes Comment: ME with 3 stents PMH - Neuro Hx Neurological Disorders Yes Hx Dizziness Yes Hx Seizures No PMH - GI Hx Gastrointestinal Disorders Yes Hx Gastroesophageal Reflux Yes Hx Obstructive Bowel Yes PMH - Hx Genitourinary Disorders No PMH - Endocrine Hx Endocrine Disorders No PMH - Musculoskeletal Hx Musculoskeletal Disorders Yes Hx Arthritis Yes PMH - Psych Hx Psychiatric Problems No PMH - Hematology/Oncology Hx Hematology/Oncology Yes Disorders Hx Cancer Yes: Lung Hx Chemotherapy No Hx Radiation Therapy No Premorbid Status: Detail (Pt lives with in a 1 story house. There is 1 step with a grab bar into the kitchen. He has a walk in shower with a seat and an elevated toilet seat. He was Ind with self cares and was responsible for all home mgmt, meal prep and laundry. He has a 2 wheeled walker, 4 wheeled walker and uses home oxygen.) Social History: Detail (Very supportive .) Precautions: [place], Fall, Other (droplet precautions.) - Time With Patient Total Time Spent With Patient (Min): 25 Treatment Procedures: Detail (Revaluation, therapuetic exercise.) Subjective Information - Subjective Information Per Patient (The patient continued to complain of inability to breathe through L nostril. The patient had no complaints of pain.) Objective Data - Mental Status Patient Orientation: Oriented x3 - ROM Within normal limits - Strength/Tone Not within normal limits (The patient' LE strength was 5/5 except for hip flexors R 4/5, L 4+/5, Hamstrings R 4+/5, L 5/5.) - Coordination Appears within normal limits for therapeutic activities - Bed Mobility Independent (Independent with supine to and from sit transfer.) - Transfers Independent (Independent with sit to and from stand transfer.) - Balance Balance Sitting: Good Balance Standing: Fair (The patient's balance was tested using the Tinetti Assessment Tool and the patient scored 19/28 which is in the moderate risk for falling category.) - Gait Detail (The patient ambulated independently with 4 wheeled walker a maximum distance of 22 feet x 1 with 6 L of O2. The patient did not ambulate on stairs due to the patient was in isolation and was unable to leave room. The patient's stated whe felt the patient could ambulate on the one step at home enterance without difficulty.) Therapy Assessment - Therapy Assessment Detail (The patient was independent with all mobility and ambulation. The patient's ambulation distance was limited due to shortness of breath. The patient is to receive home PT to assess the patient's ability to funtion in the home environment. ie: the ability to ambulate 25 feet from living room to bathroom.) Patient Education - Patient Education Teaching Topic: Exercise/Activity (The patient was independent with a HEP which addressed the patient's LE muscular endurance and strength deficits. The patient was also instructed in proper pursed lip breathing techniques , however he had difficulty maintaining the techniques. The patient's is aware of pursed lip breathing techniqes and how to appropriately cue patients.) Response: Return Demonstration Teaching Method: Demonstration, Handout Teaching Recipient: Patient, Family Barriers To Learning: Age Related, Other (Hard of hearing.) Problem List - Problem List Physical Therapy Problem List: Detail (1) Shortness of breathe at rest 2) Decreased LE strength 3) Decreased ability to complete prolonged physical activity 4) Assistance with transfers) Occupational Therapy Problem List: Detail (1. Decreased endurance needed for safe and Ind ADLs and functional mobility. 2. Need to assess showering safety. ) Goals - Goals Physical Therapy Goals: 1) Evaluate bed mobility and ambulation (Goal Met). 2) Evaluate the patient's balance using an objective balance scale.( Goal Met). 3 ) Increase LE strength 1/3 muscle grade to improve stability of gait.( Goal Partially Met). 4) The patient will ambulate with assistive device distances of up to 100 feet with 6 L of O2 indpendently ( Not Met ). 5) The patient will be independent with all bed mobility and transfers.(Met) Occupational Therapy Goals: 1. Pt will be safe and Ind with showering in sitting while using 4-6 liters of oxygen and modified breathing techniques. 2. Pt will demonstrate improved endurance and Ind with modified breathing techniques to allow safe return home. Prognosis - Prognosis Good Plan - Plan Physical Therapy Plan: The patient was to be discharged from [facility] to home on . The patient is to receive Home PT. Occupational Therapy Plan: OT 2-4 days per week to address self cares, functional mobility and endurance to allow safe and Ind return home.
[2018-02-14] MEDS: VANCOMYCIN HCL 1 GM VIAL PO SCH ×2 (00:02→06:17)
[2018-02-14] MEDS: BREO (FLUTICASONE/VILANTEROL) 200MCG/25MCG INHALER INH SCH (05:42)
[2018-02-14] MEDS: UMECLIDINIUM BROMIDE (INCRUSE) 62.5MCG IH SCH (05:43)
[2018-02-14] MEDS: SOTALOL HCL 80 MG TABLET PO SCH (06:12)
[2018-02-14] MEDS: ATORVASTATIN 20 MG TABLET PO SCH (06:13)
[2018-02-14] MEDS: TAMSULOSIN HCL 0.4 MG CAP.ER.24H PO SCH (06:14)
[2018-02-14] MEDS: ASPIRIN 81 MG TABEC PO SCH (06:14)
[2018-02-14] MEDS: GABAPENTIN 300 MG CAPSULE PO SCH (06:14)
[2018-02-14] MEDS: TOPIRAMATE 25MG TABLET PO SCH (06:15)
[2018-02-14] MEDS: CLOPIDOGREL 75MG TABLET PO SCH (06:15)
[2018-02-14] MEDS: LISINOPRIL 5 MG TABLET PO SCH (06:15)
[2018-02-14] MEDS: PANTOPRAZOLE SODIUM 40 MG TABLET PO SCH (06:16)
[2018-02-14] MEDS: CARBIDOPA/LEVODOPA 25MG/100MG TABLET PO SCH (06:16)
[2018-02-14] MEDS: FLUTICASONE PROPIONATE 50MCG NASAL 16 GM BTL SCH (06:18)
[2018-02-14] MEDS: MIDODRINE 2.5 MG PO SCH (06:25)
--- NOTE | 2018-02-14 08:27 | Discharge Summary ---
Providers Discharge Summary Date: 02/14/18 Date of admission: 02/02/18 17:11 Expected Date of Discharge: 02/14/18 Attending physician: RAGHAV GRUBBS Primary care physician: NATI BROWN MD Physical Exam - Vital Signs Vital Signs: Vital Signs - Last 24 Hrs Temp Pulse Pulse Resp BP Pulse Ox 02/14/18 05:42 80 20 90 L 02/13/18 20:51 98.2 F 75 20 150/86 94 L 02/13/18 13:32 98.1 F 76 18 121/68 95 02/13/18 12:45 97 - General General Appearance: Alert, Oriented x3, Cooperative, No acute distress - Head Head exam: Normal inspection - Eye Eye exam: Normal appearance, PERRL Pupils: Normal accommodation - ENT ENT exam: Normal exam, Mucous membranes moist, Normal external ear exam, Normal orophraynx, TM's normal bilaterally Ear exam: Normal external inspection. negative: External canal tenderness Nasal Exam: Dried blood. negative: Discharge, Sinus tenderness Mouth exam: Normal external inspection, Tongue normal Teeth exam: Normal inspection. negative: Dental caries Throat exam: Normal inspection. negative: Tonsillar erythema, Tonsillar exudate - Neck Neck exam: Normal inspection, Full ROM. negative: Tenderness - Respiratory Respiratory exam: Decreased breath sounds (throughout). negative: Accessory muscle use, Rhonchi, Wheezes - Cardiovascular Cardiovascular Exam: Regular rate, Normal rhythm, Normal heart sounds Peripheral Pulses: 2+: Radial (R), Radial (L), Dorsalis Pedis (R), Dorsalis Pedis (L) - GI/Abdominal GI/Abdominal exam: Soft, Normal bowel sounds. negative: Tenderness - Rectal Rectal exam: Deferred - exam: Deferred - Back Back exam: Reports: Normal inspection, Full ROM. Denies: Muscle spasm, Rash noted, Tenderness - Neurological Neurological exam: Alert, Normal gait, Oriented X3, Reflexes normal - Psychiatric Psychiatric exam: Normal affect, Normal mood - Skin Skin exam: Dry, Intact, Normal color, Warm Hospitalization - Hospitalization Admission Diagnosis: mrsa, bilateral pneumonia, c. diff - Problem List (1) Physical deconditioning Status: Acute Base Code: R53.81 - OTHER MALAISE Comment: 02/14/18: Pt. is deconditioned following hospitalization for bilateral pneumonia secondary to MRSA infection. Pt. was recently SB (01/08-01/15) for similar course. Pt. has completed PT/OT daily M-F and worked on strength and physical functioning. He is independent with HEP and is ambulating 22 feet with walker. -Insurance has only approved stay through today and family did not wish to appeal the decision so will plan to discharge home today. Home health care set up by to continue home therapy -follow up with pcp in 1-2 weeks. states she will call to set up (2) Pneumonia of both lungs due to methicillin resistant Staphylococcus aureus ( MRSA) Status: Acute Base Code: J15.212 - PNEUMONIA DUE TO METHICILLIN RESISTANT STAPHYLOCOCCUS AUREUS Comment: 02/14/18: Pt. diagnosed with multilobular PNA/ HCAP from MRSA. (positive culture on 01/20/18) Placed in droplet precautions. Pt. has completed treatment with linezolid 600mg bid upon discharge from [facility]. -completed 2 week follow up CXR. Could not be compared to [facility] imaging but report suggestive of similar findings as were there on 01/28/18. Clinically, patient is improved. no cough, wheezing, fever and back to baseline 4L via NC. -will make sure has disc of CXR performed here so can be compared to repeat CXR in 2 more weeks as recommended by [facility]. -follow up with Dr. Galarza. I've contacted his office and they will calling to schedule follow up. (3) C. difficile diarrhea Status: Acute Base Code: A04.72 - ENTEROCOLITIS D/T CLOSTRIDIUM DIFFICILE, NOT SPCF RECUR Comment: 02/14/18- Positive c. diff from stool culture obtained on 02/04. PO vanco 125mg q6h. Today is day 10. Patient reports that he has been having mostly formed stool but did have one episode of diarrhea at about 04:30. -Will plan to have patient complete total fo 14 day course. -sent in script for vancomycin 125mg po q6H #18 to [facility]. Called pharmacist to ensure they had medication in stock. - will continue hygiene precautions at home until he has completed antibiotics. - will call to schedule follow up with his PCP (4) Chronic respiratory failure with hypoxia Status: Acute Base Code: J96.11 - CHRONIC RESPIRATORY FAILURE WITH HYPOXIA Comment: 02/14/18: Hx COPD, L partial lobectomy, lung cancer, pt. on on 4L O2 at home via NC. -patient currently at baseline at rest requiring 4L. O2 sat of 96%. He has had to increase up to 6L with activity since his discharge from [facility]. -contacted his infantry officer, Dr. Galarza's office and they will be contacting patient to schedule follow up in 1-2 weeks (5) Status post non-ST elevation myocardial infarction (NSTEMI) Status: Acute Base Code: I25.2 - OLD MYOCARDIAL INFARCTION Comment: 02/14/18 : NSTEMI on 01/20/18, elevated trops, and s/p stent to LAD. Hx a fib. Pt's vital signs have remained stable. CBC and CMP relatively unchanged since admission. -will plan to have him follow up with [facility] in 1-2 weeks as previously scheduled on the but was readmitted. states she will call to set up new apt. with [facility]. - Hospitalization Course Disposition: Home Health Service Hospital Course: 82yo male admitted to [facility] for deconditioning related to recent hospitalization at [facility] for chronic respiratory failure from COPD, multilobar MRSA pneumonia, and NSTEMI s/p stent to LAD. He has history of non- small cell lung cancer s/p right lower lobectomy, CAD s/p PCI, p. afib, SVT s/p ablation, GIB with watchman device placed in 2015, HTN, GERD, Parkinson's disease, chronic anemia and hearing loss. Pt. was recently admitted to [facility] at [facility] following a previous [facility] hospitalization for chronic respiratory failure and pneumonia (mid December). He was home for 5 days before his symptoms worsened. Patient was admitted to [facility] on 01/20/18 after worsening dyspnea and he had been increasing his home oxygen up to 5L. Labs revealed elevated troponins and BNP. Chest xray showed multilobar penumonia and sputum culture revealed MRSA. 100% LAD blockage, successful stent placement. Pt. completed course of steroids from 01/20-02/01 and he has been treated with zyvox for his MRSA pneumonia. Recommended f/u CXR in 4-6 weeks. He continued to be weak and was below baseline with his breathing especially with activity. PT/OT at [facility] evaluated him and recommended continued therapy with JUAREZ. 02/03/18- Patient states he is doing well today. He says overall his breathing has improved and he does not feel short of breath at rest with 4L O2 via NC. He still gets winded easily with activity. He is not having any cough, sputum production, fever, chills. says he seems to be breathing much better since his hospitalization. He is having some loose stool since starting abx therapy, but denies abdominal pain/cramping. Immodium prn ordered for loose stools. PT/OT davonal completed this morning and pt. to receive services daily M- F. 02/14/18- Patient resting comfortably in chair with at bedside. He has already been up to the bathroom today, shaved and got dressed. He has been doing well respiratory booth and is back to his baseline 4L o2. He denies cough, wheezing, does get winded easily with activity but does well when o2 is increased to 6L with activity. He has been bothered by a large scab in his left nostril. discussed removing it may cause significant bleeding requiring packing which we determined would be worse than the scab which is only partially obstructing. He has been using nasal saline spray to keep the area moist. says his stool has been more formed over the past few days, but that patient had told her this morning that he had an episode of loose stool at about 4:30 this morning. Denies abdominal pain currently and has finished 10 days of oral vanc as of today. Insurance company has only authorized stay through last night/ today so will plan to discharge home today. has home health set up and they will be coming out Friday due to the holiday weekend. PCP: Dr. Brown Procedures: Imaging and X-Rays 02/12/18 09:52 CHEST 2 VIEWS [RAD] Urgent Abnormal Labs: Abnormal Lab Results 02/03/18 02/03/18 02/04/18 Range/Units 17:36 17:36 16:00 RBC 4.35 L (4.40-5.70) M/uL Hgb 11.8 L (14.0-18.0) gm/dl Hct 39.7 L (42.0-52.0) % MCHC 29.7 L (32-36) g/dl RDW 14.9 H (11.5-14.5) % Plt Count 457 H (130-400) K/uL Neutrophils % 90.0 H (47-80) % Lymphocytes % (16-45) % Lymphocytes 4.0 L (16-45) % Sodium (136-145) mmol/L Potassium 5.0 H (3.4-4.5) mmol/L Carbon Dioxide 32.0 H (22-29) mmol/L Random Glucose 159 H (74-109) mg/dL Total Protein 5.8 L (6.6-8.7) g/dL Albumin 3.0 L (4.0-5.0) g/dL C. difficile Ag & Toxin Detected H (NOT DETECT) 02/08/18 02/08/18 Range/Units 06:05 06:05 RBC 4.18 L (4.40-5.70) M/uL Hgb 11.4 L (14.0-18.0) gm/dl Hct 38.5 L (42.0-52.0) % MCHC 29.6 L (32-36) g/dl RDW 14.9 H (11.5-14.5) % Plt Count (130-400) K/uL Neutrophils % (47-80) % Lymphocytes % 7.6 L (16-45) % Lymphocytes (16-45) % Sodium 146 H (136-145) mmol/L Potassium (3.4-4.5) mmol/L Carbon Dioxide 32.0 H (22-29) mmol/L Random Glucose (74-109) mg/dL Total Protein 5.6 L (6.6-8.7) g/dL Albumin 3.0 L (4.0-5.0) g/dL C. difficile Ag & Toxin (NOT DETECT) Condition at Discharge: (2) Stable Discharge Medications - Discharge Medications Prescriptions: Vancomycin HCl [Vancomycin] 125 mg PO Q6H #18 capsule Home Medications: Ambulatory Orders Albuterol Sulfate [Ventolin Hfa] 1 - 2 puff IH .EVERY 4-6 HRS PRN 01/17/15 [ Last Taken 06/24/16] Aspirin [Aspirin EC] 81 mg PO DAILY 01/17/15 [Last Taken 06/24/16] Calcium Carbonate/Vitamin D3 [Calcium 600 + Vit D Tablet] 1 each PO BID [Last Taken 06/24/16] Clopidogrel Bisulfate [Plavix] 75 mg PO DAILY 01/17/15 [Last Taken 06/24/16] Ferrous Sulfate [Iron] 650 mg PO DAILY 01/17/15 [Last Taken 06/24/16] Gabapentin [Neurontin] 300 mg PO QID 01/17/15 [Last Taken 06/24/16] Glucosam/Howard-Msm1/C/Angel/Bosw [Osteo Bi-Flex] 2 tab PO DAILY 01/17/15 [Last Taken 06/24/16] Hydrocodone/Acetaminophen [Douglas 7.5mg/325mg] 1 tab PO BID PRN 01/17/15 [Last Taken 04/22/16] Midodrine HCl 2.5 mg PO TID 01/17/15 [Last Taken 06/24/16] Multivitamin [Multi-Vitamin Daily] 1 each PO DAILY 01/17/15 [Last Taken 06/24/16 ] Nitroglycerin [Nitrostat] 0.4 mg SL ASDIR 01/17/15 [Last Taken 1 Day Ago ~] Tamsulosin HCl [Flomax] 0.4 mg PO DAILY 01/17/15 [Last Taken 06/24/16] Tiotropium [place] [Spiriva] 18 mcg IH DAILY 01/17/15 [Last Taken 06/24/16] Carbidopa/Levodopa [Sinemet 25-100 mg Tablet] 1 each PO BID 02/26/15 [Last Taken 06/24/16] Sotalol HCl [Sotalol] 80 mg PO DAILY 02/26/15 [Last Taken 06/24/16] Budesonide/Formoterol Fumarate [Symbicort 160-4.5 Mcg Inhaler] 2 puff IH BID puff 04/22/16 [Last Taken 06/25/16] Topiramate 50 mg PO BID tab 04/22/16 [Last Taken 06/24/16] Atorvastatin Calcium 10 mg PO DAILY #30 11/27/16 [Last Taken Unknown] Vancomycin HCl [Vancomycin] 125 mg PO Q6H #18 capsule 02/14/18 [Last Taken Unknown] Discharge Plan - Discharge Instructions Activity at Discharge: As Per Physical Therapy Instructions: Clostridium Difficile Infection (DC), Pneumonia (DC) Additional Instructions: Dr. Galarza's office should be contacting you to schedule a follow up appointment. Will need a repeat chest X-Ray in 2 weeks. Please bring disc to your appointment. Home health care should be out on Friday. Continue the vancomycin 125mg by mouth every 6 hours for 4 more days. Continue the cleaning precautions until all antibiotics are gone. Follow up with your primary care and cardiology in 1-2 weeks. please call with any questions or concerns Quality Measures - Quality Measures Quality Measures: Atrial Fibrillation & Atrial Flutter: Chronic Anticoagulation Therapy, Advance Directives, Coronary Artery Disease: Antiplatelet Therapy, Documentation of Current Medications in Medical Record, Elder Maltreatment Screen and Follow-Up Plan, Screening for High Blood Pressure and F/U Documented - Current Medications Quality Measure: Measure #130: Documentation of Current Medications Documentation of Current Medications: <Current Medications Documented/Reviewed> [M0180] - Blood Pressure Screening Quality Measure: Screening for High Blood Pressure and Follow-Up Documented Does Patient Have Any of the Following: Active Dx of HTN Blood Pressure Classification: Pre-Hypertensive BP Reading Systolic Measurement: 121 Diastolic Measurement: 78 Screening for High Blood Pressure: Patient Exclusion, Hx of HTN [Z3345] - Atrial Fibrillation and Atrial Flutter Quality Measure: Atrial Fibrillation & Atrial Flutter: Chronic Anticoagulation Therapy Does Patient Have Any of the Following: No CHADS2 Risk Stratification: Age 75 or Greater, Hypertension Risk Stratification Summary: One or more high risk factors OR more than one moderate risk factor exists. [O8972] Anticoagulation Therapy: <Oral anticoagulant Prescribed> [M9982] - Coronary Artery Disease Quality Measure: Measure #6: Coronary Artery Disease (CAD) Antiplatelet Therapy: <ASA or clopidogrel prescribed> [2046F] - Advance Directives Quality Measure: Measure #47: Care Plan Advance Directives Established: No Advance Directives Information Provided To Patient: No Advance Directives on File: No Living Will: Yes Power of Shipping Weigher: Yes Power of Shipping Weigher Name: Addie Crawford Advance Care Planning: <Care Plan/Decision Maker Not Decided; Discussed & Documented> [0743F] - Elder Abuse Suspicion Index Screening: Elder Abuse Suspicion Index Screening Rely on people for bathing, dressing, shopping, banking, etc: Yes Prevented from getting food, clothes, medication, etc: No Made to feel shamed or threatened by someone: No Forced to sign papers or use money against will: No Feel afraid, touched in ways not wanted or hurt physically: No Poor eye contact, withdrawn, malnourished, cuts or bruises: No Screening Result: Negative result EASI Reference Information: Keryr TATE, Goldie C, Gonzalez D, Marcia Norton.Development and validation of a tool to assist physicians identification of elder abuse: The Elder Abuse Suspicion Index (EASI ). Journal of Elder Abuse and Neglect, 2008; 20 (3): 276-300. - Elder Maltreatment Screen Quality Measures: Elder Maltreatment Screen and Follow-Up Plan Elder Maltreatment Screen: <Negative, No Follow-Up Plan Required> [G8734]
[2018-02-14] MEDS: FERROUS SULFATE 325 MG TAB PO SCH (08:37)
[2018-02-14] MEDS: BIFIDOBACTERIUM INFANTIS 4 MG CAPSULE PO SCH ×2 (08:37→10:56)
[2018-02-14] MEDS: CALCIUM CARB/VITAMIN D 500MG/200IU PO SCH (08:37)
--- NOTE | 2018-02-18 07:11 | Rehab Discharge Summary ---
Patient Information - Patient Information Diagnosis: MRSA, bilateral pneumonia Ordered Treatment: OT Evaluate and Treat Surgery: No Past Medical/Surgical Hx: PAST MEDICAL/SURGICAL HISTORY Past Surgical History Stents X2 RLL removed From CA Apendix 2010 Untwist bowel EGD funduplication PMH - Respiratory Hx Respiratory Disorders Yes Hx Chronic Obstructive Yes Pulmonary Disease (COPD) Comment: RLlobe removed from CA PMH - Cardiovascular Hx Cardiovascular Disorders Yes Hx Abnormal EKG Yes Hx Cardiac Catheterization Yes: recent cath [place] 01/17/2015 Hx Edema Yes Hx Heart Attack Yes Hx Hypertension Yes Hx Irregular Heartbeat Yes Comment: [place] with 3 stents PMH - Neuro Hx Neurological Disorders Yes Hx Dizziness Yes Hx Seizures No PMH - GI Hx Gastrointestinal Disorders Yes Hx Gastroesophageal Reflux Yes Hx Obstructive Bowel Yes PMH - Hx Genitourinary Disorders No PMH - Endocrine Hx Endocrine Disorders No PMH - Musculoskeletal Hx Musculoskeletal Disorders Yes Hx Arthritis Yes PMH - Psych Hx Psychiatric Problems No PMH - Hematology/Oncology Hx Hematology/Oncology Yes Disorders Hx Cancer Yes: Lung Hx Chemotherapy No Hx Radiation Therapy No Premorbid Status: Detail (Pt lives with in a 1 story house. There is 1 step with a grab bar into the kitchen. He has a walk in shower with a seat and an elevated toilet seat. He was Ind with self cares and was responsible for all home mgmt, meal prep and laundry. He has a 2 wheeled walker, 4 wheeled walker and uses home oxygen.) Social History: Detail (Very supportive .) Precautions: [place], Fall, Other (droplet precautions.) Objective Data - Pain Pain Present: No - Mental Status Patient Orientation: Oriented x3 - Visual Perception Appears within normal limits for therapeutic activities - ROM Within normal limits ([place] UE AROM WNL) - Strength/Tone Within normal limits ([place] UE strength WNL) - Coordination Appears within normal limits for therapeutic activities - Bed Mobility Independent - Transfers Independent - Balance Balance Sitting: Good Balance Standing: Good - Sensation Intact - Gait Detail (Ind ambulating in room) - ADL's/IADL's Detail (Ind with showering in sitting and dressing although pt becomes extremely short of breath with all activity) Therapy Assessment - Therapy Assessment Detail (Pt is Ind with all self cares and functional mobility although he is significantly limited due to shortness of breath. He is Ind with all modified breathing techniques.) Problem List - Problem List Physical Therapy Problem List: Detail (1) Shortness of breathe at rest 2) Decreased LE strength 3) Decreased ability to complete prolonged physical activity 4) Assistance with transfers) Occupational Therapy Problem List: Detail (1. Decreased endurance needed for safe and Ind ADLs and functional mobility. 2. Need to assess showering safety. ) Goals - Goals Physical Therapy Goals: 1) Evaluate bed mobility and ambulation (Goal Met). 2) Evaluate the patient's balance using an objective balance scale.( Goal Met). 3 ) Increase LE strength 1/3 muscle grade to improve stability of gait.( Goal Partially Met). 4) The patient will ambulate with assistive device distances of up to 100 feet with 6 L of O2 indpendently ( Not Met ). 5) The patient will be independent with all bed mobility and transfers.(Met) Occupational Therapy Goals: Goals Met: 1. Pt will be safe and Ind with showering in sitting while using 4-6 liters of oxygen and modified breathing techniques. 2. Pt will demonstrate improved endurance and Ind with modified breathing techniques to allow safe return home. Prognosis - Prognosis Moderate (Due to shortness of breath) Plan - Plan Physical Therapy Plan: The patient was to be discharged from [facility] to home on . The patient is to receive Home PT. Occupational Therapy Plan: Pt was discharged home on 02/14/18.
== END 2018-02-14 11:08 | disposition home health service (06) | DRG 177 ==
LOC: MEDSURG 02-02 17:11
PROVIDERS: ADMIT Internal Medicine; ATTEND Internal Medicine
DX: J15.212 Pneumonia due to Methicillin resistant Staphylococcus aureus (principal); I21.4 Non-ST elevation (NSTEMI) myocardial infarction; I47.1 Supraventricular tachycardia; J96.11 Chronic respiratory failure with hypoxia; A04.72 Enterocolitis due to Clostridium difficile, not specified as recurrent; I48.0 Paroxysmal atrial fibrillation; J44.9 Chronic obstructive pulmonary disease, unspecified; I25.10 Atherosclerotic heart disease of native coronary artery without angina pectoris; I10 Essential (primary) hypertension; D64.9 Anemia, unspecified; G20 Parkinson's disease; H91.90 Unspecified hearing loss, unspecified ear; Z85.118 Personal history of other malignant neoplasm of bronchus and lung; Z79.01 Long term (current) use of anticoagulants; Z87.891 Personal history of nicotine dependence; Z90.2 Acquired absence of lung [part of]
CPT/HCPCS: 71046; 80053; 82272; 85025; 85027; 87329; 87425; 87427; 87493; 89055; 92526; 94640; 94760; 94761; 97110; 97140; 97530; 97535; 99306; 99309; 99316; J7512

== ENCOUNTER 2018-02-14 12:20 | Emergency (ER) | payer MEDICARE ==
--- NOTE | 2018-02-14 12:49 | Emergency Department Record ---
History of Present Illness - General Chief Complaint: Code Adult Stated Complaint: CODE Time Seen by Provider: 02/14/18 12:20 Source: Patient - History of Present Illness Initial Comments: Patient just got home from [facility] subacute rehab and he collapsed going to the bathroom. Patient in cardiac arrest with first aid instructor and the son started CPR prior to first aid instructor. Patient went in to the bathroom and urinated and collapsed walking out of the bathroom. Patient was in the hospital for pneumonia and deconditioning . PMH CAD with 5 stents and COPD with home oxygen 4 liters at rest and 6-7liters with activity ,active lung cancer. Complaint: Collapsed during activity, Found unresponsive - Related Data Previous Rx's Medication Instructions Recorded Vancomycin HCl [Vancomycin] 125 mg PO Q6H #18 capsule 02/14/18 Allergies Allergy/AdvReac Type Severity Reaction Status Date / Time dipyridamole Allergy Intermediate ABDOMINAL Verified 02/14/18 12:46 [From Persantine] PAIN Review of Systems ROS unobtainable: Due to endotracheal tube Reviewed: No additional complaints except as noted below Respiratory: Reports: Other (COPD with home oxygen 4 liters at rest and 6-7 liters with activity, Active lung cancer) Cardiovascular: Reports: Other (5 cardiac stents, CAD) Past Medical History - SOCIAL HISTORY Smoking Status: Former smoker - RESPIRATORY Hx Respiratory Disorders: Yes Hx COPD: Yes Comment:: RLlobe removed from CA - CARDIOVASCULAR Hx Cardio Disorders: Yes Hx Abnormal EKG: Yes - NEURO Hx Seizures: No - GI Hx GI Disorders: Yes Hx Reflux: Yes - Hx Genitourinary Disorders: No - ENDOCRINE Hx Endocrine Disorders: No - MUSCULOSKELETAL Hx Musculoskeletal Disorders: Yes Hx Arthritis: Yes - PSYCH Hx Psych Problems: No - HEMATOLOGY/ONCOLOGY Hx Hematology/Oncology Disorders: Yes Hx Cancer: Yes (Lung) Hx Chemotherapy: No Hx Radiation Therapy: No Family Medical History Hx Cancer: Mother, Brother/Sister Hx Heart Disease: Father Hx HTN: Father Physical Exam - General General Appearance: Other (CPR with a combitub and IO in the right leg. and IJ left side,CPR in progress) - Eye Eye exam: Other (pupil equal and fixed midpoint) - ENT Mouth exam: Other (combitube in place) - Respiratory Respiratory exam: Other (bagged breath sounds) - Cardiovascular Cardiovascular Exam: Other (No heart sounds) - GI/Abdominal GI/Abdominal exam: Soft - Extremities Extremities exam: Other (IO in the right leg) Course - Reevaluation(s) Reevaluation #1: rn examiner Mike called and information given to him. 02/14/18 13:04 Reevaluation #2: upon arrival asystole and after epi, PEA for 4 minutes and back to asystole. EMS said arrest started approximately 35 minutes prior to arrival to ED without ever getting any pulses. 02/14/18 13:19 Reevaluation #3: body released to [facility] 02/14/18 14:04 Critical Care Time Critical Care Time: Yes Total Critical Care Time: 10 (entire tme in ED) Disposition Clinical Impression: Cardiac arrest, Chronic respiratory failure with hypoxia Lung cancer Qualifiers: Laterality: unspecified laterality Lung location: unspecified part of lung Qualified Code(s): C34.90 - Malignant neoplasm of unspecified part of unspecified bronchus or lung Disposition: / Forms: Patient Portal Access Quality - Quality Measures Quality Measures: N/A - Blood Pressure Screening Does Patient Have Any of the Following: No, Active Dx of HTN Systolic Measurement: ~ Screening for High Blood Pressure: Patient Exclusion, Hx of HTN [G9744]
== END 2018-02-14 14:42 | disposition expired ==
LOC: ER 12:20
DX: I46.9 Cardiac arrest, cause unspecified (principal); J96.11 Chronic respiratory failure with hypoxia; J44.9 Chronic obstructive pulmonary disease, unspecified; I25.10 Atherosclerotic heart disease of native coronary artery without angina pectoris; I10 Essential (primary) hypertension; C34.90 Malignant neoplasm of unspecified part of unspecified bronchus or lung; Z87.891 Personal history of nicotine dependence
CPT/HCPCS: 92950; 96374; 96375; 99285